=== PATIENT | female | born 1965 | race Hispanic/Latino ===

== ENCOUNTER 2020-05-06 17:22 | Emergency (ER) | payer OTHER ==
--- OUTSIDE RECORDS SUMMARY | 2020-05-06 17:25 | XMS REPORT | Continuity of Care Document ---
:1965 Author Organization [facility] t Address [address] [place] [address] Care Team Providers Name Role Phone Jermain WELSH S Attending Clinician Problems This patient has no known problems. Allergies, Adverse Reactions, Alerts This patient has no known allergies or adverse reactions. Medications This patient has no known medications. Procedures This patient has no known procedures. Encounters Start End Encounter Admission Attending Care Care Encounter Source Date/Time Date/Time Type Type Clinicians Facility Department ID 2018-11-16 2018-11-17 Emergency THERESA Aly [id number] 21:53:19 03:28:00 Yoel León [id number] [place] [id number] [place] [id number] Results This patient has no known results.
[2020-05-06 22:04] LABS: Absolute Lymphocytes (CBC) 2.2 K/uL (0.7-4.9); Basophils % 0.3 % (0-1.3); Hematocrit 39.4 % (36.0-45.0); Lymphocytes % 37.1 % (15.3-44.8); MPV 9.4 fL (7.6-11.3); RBC Red Blood Cell Count 4.73 M/uL (3.86-4.86)
[2020-05-06] MEDS ORDERED: DIPHENHYDRAMINE 50 MG/ML VIAL ONE (22:07)
[2020-05-06] MEDS ORDERED: METOCLOPRAMIDE 10 MG/2mL INJ ONE (22:07)
[2020-05-06] MEDS ORDERED: KETOROLAC 30 MG/ML INJ ONE (22:08)
[2020-05-06 22:20] LABS: ALT/SGPT 25 U/L (12-78); AST/SGOT 16 U/L (15-37); Alkaline Phosphatase 103 U/L (45-117); BUN Blood Urea Nitrogen 9 mg/dL (7-18); Bicarbonate 28 mmol/L (21-32); Bilirubin Total 0.4 mg/dL (0.2-1.0); Glucose Level 88 mg/dL (74-106); Potassium 3.8 mmol/L (3.5-5.1); Sodium Level 144 mmol/L (136-145)
[2020-05-06 22:21] LABS: Protein, Total 7.7 g/dL (6.4-8.2)
--- NOTE | 2020-05-06 23:29 | ER ---
Nurse's Notes [facility] Name: Makayla Tejada Age: 55 yrs Sex: Female : 1965 Arrival Date: 05/06/2020 Time: 17:29 Bed 19 Private MD: Diagnosis: Headache Presentation: 05/06 17:33 Chief complaint: Patient states: STEEL, dizzy, off balanced for 1 day. States her BP just ll1 [employer]ILE[employer]ODU[employer] MOLDER is 150/102. States she hasn't had a migraine STEEL in a long time. + photophobia. Coronavirus screen: Client denies travel out of the [place] in the last 14 days. At this time, the client does not indicate any symptoms associated with coronavirus-19. Ebola Screen: Patient denies travel to an Ebola-affected area in the 21 days before illness onset. Initial Sepsis Screen: Does the patient meet any 2 criteria? No. Patient's initial sepsis screen is negative. Does the patient have a suspected source of infection? Yes: Other: STEEL. Risk Assessment: Do you want to hurt yourself or someone else? Patient reports no desire to harm self or others. Onset of symptoms was May 06, 2020. 17:33 Method Of Arrival: Ambulatory ll1 17:33 Acuity: MELISA 3 ll1 Triage Assessment: 21:03 Headache History: Denies prior headaches. General:. General: Appears uncomfortable, sf Behavior is calm, cooperative, appropriate for age. Pain: Pain currently is 10 out of 10 on a pain scale. Pain began gradually, Also complains of photophobia. 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 - Social history:: Smoking status: Patient denies any tobacco usage or history of. Screenin:22 Abuse screen: Denies threats or abuse. Denies injuries from another. Nutritional sf screening: No deficits noted. Tuberculosis screening: No symptoms or risk factors identified. Never had TB. Possible symptoms: None Risk factors: None. Fall Risk None identified. No fall in past 12 months (0 pts). No secondary diagnosis (0 pts). IV access (20 points). Ambulatory Aid- None/Bed Rest/Nurse Assist (0 pts). Gait- Normal/Bed Rest/Wheelchair (0 pts) Mental Status- Oriented to own ability (0 pts). Total Joshi Fall Scale indicates No Risk (0-24 pts). Assessment: 21:03 General: Appears in no apparent distress. comfortable, Behavior is calm, cooperative, sf appropriate for age. Pain: Complains of pain in headache. Neuro: Level of Consciousness is awake, alert, obeys commands, Oriented to person, place, time, situation, Appropriate for age Speech is normal, Facial symmetry appears normal, Pupils are PERRLA, Reports headache in entire photophobia. Cardiovascular: No deficits noted. Patient's skin is warm and dry. Respiratory: No deficits noted. Airway is patent Respiratory effort is even, unlabored, Respiratory pattern is regular, symmetrical. 22:35 Reassessment: Patient appears in no apparent distress at this time. Patient and/or sf family updated on plan of care and expected duration. Pain level reassessed. Patient is alert, oriented x 3, equal unlabored respirations, skin warm/dry/pink. Patient states feeling better. Vital Signs: 17:33 BP 157 / 102; Pulse 83; Resp 17; Temp 98.8; Pulse Ox 99% ; Weight 79.38 kg; Height 5 ll1 ft. 2 in. (157.48 cm); Pain 10/10; 20:58 BP 152 / 102; Pulse 80; Resp 16; Pulse Ox 100% ; sf 21:00 BP 174 / 107; Pulse 80; Resp 16; Pulse Ox 100% ; sf 21:37 BP 158 / 103; Pulse 97; sf 21:45 BP 171 / 94; Pulse 64; Pulse Ox 100% ; sf 22:00 BP 151 / 108; Pulse 71; Pulse Ox 100% ; sf 22:15 BP 129 / 77; Pulse 58; Resp 16; Pulse Ox 97% ; sf 22:38 BP 122 / 81; Pulse 58; Resp 16; Pulse Ox 97% ; Pain 7/10; sf 22:45 BP 123 / 83; Pulse 59; Pulse Ox 96% ; sf 23:00 BP 107 / 77; Pulse 61; Resp 16; Pulse Ox 95% ; sf 23:15 BP 115 / 82; Pulse 57; Pulse Ox 95% ; sf 23:30 BP 119 / 79; Pulse 64; Pulse Ox 99% ; sf 17:33 Body Mass Index 32.01 (79.38 kg, 157.48 cm) ll1 ED Course: 17:29 Patient arrived in ED. mr 17:35 Triage completed. ll1 17:37 Arm band placed on. ll1 20:46 [facility] pm1 20:46 Rogelio Shields MD is Attending Physician. pm1 20:50 Hussein Forman, LINDA is Primary Nurse. sf 21:06 Patient has correct armband on for positive identification. Bed in low position. Call sf light in reach. Side rails up X 1. Pulse ox on. NIBP on. Door closed. Noise minimized. Lights dimmed. 21:15 CT Head Brain wo Cont Sent. sf 21:24 CT Head Brain wo Cont In Process Unspecified. EDMS 21:40 Initial lab(s) drawn, by nm, sent to lab. Inserted saline lock: 20 gauge in right sf antecubital area, using aseptic technique. Blood collected. 22:26 EKG done, by ED staff, reviewed by Juan Teran NP. sf 22:54 No provider procedures requiring assistance completed. sf 23:51 IV discontinued, intact, bleeding controlled, No redness/swelling at site. Pressure sf dressing applied. Administered Medications: 21:50 Drug: TORadol 30 mg Route: IVP; Site: right antecubital; sf 22:50 Follow up: Response: No adverse reaction; Marked relief of symptoms sf 21:51 Drug: Benadryl 25 mg Route: IVP; Site: right antecubital; sf 22:49 Follow up: Response: No adverse reaction; Marked relief of symptoms sf 21:52 Drug: Reglan 10 mg Route: IVP; Infused Over: 2 mins; Site: right antecubital; sf 22:49 Follow up: Response: No adverse reaction; Marked relief of symptoms sf Outcome: 23:28 Discharge ordered by . pm1 23:51 Discharged to home ambulatory. sf 23:51 Condition: improved 23:51 Condition: stable 23:51 Discharge instructions given to patient, Instructed on discharge instructions, follow up and referral plans. medication usage, Demonstrated understanding of instructions, follow-up care, medications, Prescriptions given X 1. 23:52 Patient left the ED. sf Signatures: Dispatcher MedCatchSquareH[facility] Hospital[facility], Nanci mr Parul, Juan, WINDSHIELD INSTALLER WINDSHIELD INSTALLER pm1 Jesús Gallardo, RN RN ll1 Hussein Forman RN RN sf
--- NOTE | 2020-05-06 23:29 | EDPHYS ---
Physician Documentation [facility] Name: Makayla Tjeada Age: 55 yrs Sex: Female : 1965 Arrival Date: 05/06/2020 Time: 17:29 Bed 19 Private MD: ED Physician Rogelio Shields HPI: 05/06 21:06 This 55 yrs old Female presents to ER via Ambulatory with complaints of pm1 Headache, High Blood Pressure. 21:06 The patient complains of pain to the forehead. The patient describes the headache as pm1 aching, constant. Onset: The symptoms/episode began/occurred yesterday. Associated signs and symptoms: Pertinent positives: elevated blood pressure, Pertinent negatives: vomiting, chest pain, shortness of breath, back pain. Severity of symptoms: in the emergency department the pain is unchanged. Headache History: The patient has had previous headaches and this one is similar to previous episodes. The symptoms are alleviated by Darkened room, quiet, the symptoms are aggravated by lights. The patient has not recently seen a physician. 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 - Social history:: Smoking status: Patient denies any tobacco usage or history of. ROS: 21:06 Constitutional: Negative for fever, chills, and weight loss, Eyes: Negative for injury, pm1 pain, redness, and discharge, ENT: Negative for injury, pain, and discharge, Neck: Negative for injury, pain, and swelling, Cardiovascular: Negative for chest pain, palpitations, and edema, Respiratory: Negative for shortness of breath, cough, wheezing, and pleuritic chest pain, Abdomen/GI: Negative for abdominal pain, nausea, vomiting, diarrhea, and constipation, Back: Negative for injury and pain, MS/Extremity: Negative for injury and deformity, Skin: Negative for injury, rash, and discoloration. 21:06 Neuro: Positive for headache, Negative for numbness, tingling, weakness. Exam: 21:06 Constitutional: This is a well developed, well nourished patient who is awake, alert, pm1 and in no acute distress. Head/Face: Normocephalic, atraumatic. Chest/axilla: Normal chest wall appearance and motion. Nontender with no deformity. No lesions are appreciated. Cardiovascular: Regular rate and rhythm with a normal S1 and S2. No gallops, murmurs, or rubs. Normal PMI, no JVD. No pulse deficits. Respiratory: Lungs have equal breath sounds bilaterally, clear to auscultation and percussion. No rales, rhonchi or wheezes noted. No increased work of breathing, no retractions or nasal flaring. Abdomen/GI: Soft, non-tender, with normal bowel sounds. No distension or tympany. No guarding or rebound. No evidence of tenderness throughout. Skin: Warm, dry with normal turgor. Normal color with no rashes, no lesions, and no evidence of cellulitis. MS/ Extremity: Pulses equal, no cyanosis. Neurovascular intact. Full, normal range of motion. 21:06 Neuro: Exam negative for acute changes, Orientation: is normal, Mentation: is normal, Motor: is normal, moves all fours, Sensation: is normal, no obvious gross deficits. Vital Signs: 17:33 BP 157 / 102; Pulse 83; Resp 17; Temp 98.8; Pulse Ox 99% ; Weight 79.38 kg; Height 5 ll1 ft. 2 in. (157.48 cm); Pain 10/10; 20:58 BP 152 / 102; Pulse 80; Resp 16; Pulse Ox 100% ; sf 21:00 BP 174 / 107; Pulse 80; Resp 16; Pulse Ox 100% ; sf 21:37 BP 158 / 103; Pulse 97; sf 21:45 BP 171 / 94; Pulse 64; Pulse Ox 100% ; sf 22:00 BP 151 / 108; Pulse 71; Pulse Ox 100% ; sf 22:15 BP 129 / 77; Pulse 58; Resp 16; Pulse Ox 97% ; sf 22:38 BP 122 / 81; Pulse 58; Resp 16; Pulse Ox 97% ; Pain 7/10; sf 22:45 BP 123 / 83; Pulse 59; Pulse Ox 96% ; sf 23:00 BP 107 / 77; Pulse 61; Resp 16; Pulse Ox 95% ; sf 23:15 BP 115 / 82; Pulse 57; Pulse Ox 95% ; sf 23:30 BP 119 / 79; Pulse 64; Pulse Ox 99% ; sf 17:33 Body Mass Index 32.01 (79.38 kg, 157.48 cm) ll1 MDM: 20:53 Patient medically screened. pm1 23:27 Data reviewed: vital signs. Data interpreted: Pulse oximetry: on room air is 95 %. pm1 Interpretation: normal. Counseling: I had a detailed discussion with the patient and/or guardian regarding: the historical points, exam findings, and any diagnostic results supporting the discharge/admit diagnosis, lab results, radiology results, the need for outpatient follow up, to return to the emergency department if symptoms worsen or persist or if there are any questions or concerns that arise at home. 23:29 ED course: Blood pressure within normal limits after addressing patient's headache with pm1 medications. No medications given in the ER for hypertension. 05/06 21:04 Order name: CBC with Diff; Complete Time: 23:09 pm1 05/06 21:04 Order name: CMP; Complete Time: 23:09 pm1 05/06 21:04 Order name: CT Head Brain wo Cont pm1 05/06 21:04 Order name: IV Saline Lock; Complete Time: 21:45 pm1 05/06 21:04 Order name: EKG; Complete Time: 21:06 pm1 05/06 21:04 Order name: EKG - Nurse/Tech; Complete Time: 22:35 pm1 Administered Medications: 21:50 Drug: TORadol 30 mg Route: IVP; Site: right antecubital; sf 22:50 Follow up: Response: No adverse reaction; Marked relief of symptoms sf 21:51 Drug: Benadryl 25 mg Route: IVP; Site: right antecubital; sf 22:49 Follow up: Response: No adverse reaction; Marked relief of symptoms sf 21:52 Drug: Reglan 10 mg Route: IVP; Infused Over: 2 mins; Site: right antecubital; sf 22:49 Follow up: Response: No adverse reaction; Marked relief of symptoms sf Disposition: 05/07 06:28 Co-signature as Attending Physician, Rogelio Shields MD I agree with the assessment and tw4 plan of care. Disposition: 05/06/20 23:28 Discharged to Home. Impression: Headache. - Condition is Stable. - Discharge Instructions: General Headache Without Cause, Hypertension, Managing Your Hypertension. - Prescriptions for Fiorinal 50- 325-40 mg Oral Capsule - take 1 capsule by ORAL route every 4 hours As needed - not to exceed 6 capsules per day; 20 capsule. - Medication Reconciliation Form, Thank You Letter, Antibiotic Education, Prescription Opioid Use form. - Follow up: Emergency Department; When: As needed; Reason: Worsening of condition. Follow up: Private Physician; When: 2 - 3 days; Reason: Recheck today's complaints, Continuance of care, Re-evaluation by your physician. - Problem is new. - Symptoms have improved. Signatures: Dispatcher [employer] EDMS Juan Teran, AUTO MECHANIC SUPERVISOR AUTO MECHANIC SUPERVISOR pm1 Rogelio Shields MD MD tw4 Jesús Gallardo RN RN ll1 Hussein Forman RN RN sf Corrections: (The following items were deleted from the chart) 05/06 23:52 23:28 05/06/2020 23:28 Discharged to Home. Impression: Headache. Condition is Stable. sf Forms are Medication Reconciliation Form, Thank You Letter, Antibiotic Education, Prescription Opioid Use. Follow up: Emergency Department; When: As needed; Reason: Worsening of condition. Follow up: Private Physician; When: 2 - 3 days; Reason: Recheck today's complaints, Continuance of care, Re-evaluation by your physician. Problem is new. Symptoms have improved. pm1
[2020-05-07 02:06] VITALS: TEMP 98.8
[2020-05-07 02:19] VITALS: BP 119/79; O2SAT 99
--- NOTE | 2020-05-07 13:52 | RAD REPORT ---
EXAM DESCRIPTION: CT - Head Brain Wo Cont - 05/07/2020 6:38 am CLINICAL HISTORY: Headache. Dizziness. Photophobia. COMPARISON: None. TECHNIQUE: CT scan of the brain was performed without IV contrast. This exam was performed accordi ng to our departmental dose-optimization program, which includes automated exposure control, adjustme nt of the mA and/or kV according to patient size and/or use of iterative reconstruction technique. FINDINGS: The ventricles, cisterns, and sulci are age-appropriate. No evidence of acute infarction, intracranial hemorrhage, extra-axial fluid collection, or midline shift. No air-fluid levels are seen in the paranasal sinuses to suggest acute sinusitis. No depressed skull fracture. IMPRESSION: No acute intracranial findings. Electronically signed by: Robert Ross MD 05/06/2020 9:46 PM CAFETERIA MONITOR Due to temporary technical issues with the PACS/Fluency reporting system, reports are being signed by the in house radiologists without review as a courtesy to insure prompt reporting. The interpreting radiologist is fully responsible for the content of the report.
--- NOTE | 2020-05-07 23:59 | EKG ---
Test Date: 2020-05-06 Test Time: 22:26:13 Salvage Inspector: SYLVIA MEASUREMENT RESULTS: Intervals: Rate: 59 CO: 102 QRSD: 84 QT: 392 QTc: 388 [place]: P: 27 CO: 102 QRS: 7 T: 20 INTERPRETIVE STATEMENTS: Sinus bradycardia with short CO T wave abnormality, consider anterior ischemia Abnormal ECG Compared to ECG 11/12/2000 13:51:00 T-wave abnormality now present Possible ischemia now present Electronically Signed On 05-07-20 23:57:51 TAILINGS MAN by Ernesto Zavala
== END 2020-05-06 23:52 | disposition home or self-care (01) ==
LOC: ER 17:22
DX: R51.9 Headache, unspecified (principal); R03.0 Elevated blood-pressure reading, without diagnosis of hypertension
CPT/HCPCS: 93005; 85025; 36415; 80053; 70450; J2765; J1200; 96374; 96375; 99284

== ENCOUNTER 2020-05-08 20:46 | Emergency (ER) | payer OTHER ==
--- OUTSIDE RECORDS SUMMARY | 2020-05-08 20:48 | XMS REPORT | Continuity of Care Document ---
:1965 Author Organization [facility] t Address [address] [place] [address] Care Team Providers Name Role Phone Jermain [...] Department ID 2018-11-16 2018-11-17 Emergency THERESA Aly [id number] 21:53:19 03:28:00 Yoel León [id number] [place] [id number] [place] [phone] [id number] Results This patient has no known results.
--- NOTE | 2020-05-08 21:20 | RAD REPORT ---
EXAM DESCRIPTION: CT - Ct Stroke Brain Wo Cont - 05/08/2020 9:02 pm CLINICAL HISTORY: Numbness;Weakness Headache, drowsiness, CVA symptomology COMPARISON: Head Brain Wo Cont dated 05/06/2020 TECHNIQUE: All CT scans are performed using dose optimization technique as appropriate and may inclu de automated exposure control or mA/KV adjustment according to patient size. FINDINGS: No intracranial hemorrhage, hydrocephalus or extra-axial fluid collection.No areas of brai n edema or evidence of midline shift. The paranasal sinuses and mastoids are clear. The calvarium is intact. IMPRESSION: No acute intracranial abnormality. The findings were discussed with Dr. Galan in the ER on 05/08/2020 at 9:02 p.m. by telephone.
--- NOTE | 2020-05-08 21:20 | RAD REPORT ---
EXAM DESCRIPTION: RAD - Chest Single View - 05/08/2020 9:10 pm CLINICAL HISTORY: cva Chest pain. COMPARISON: CHEST PA AND LAT 2 VIEW dated 08/21/2009 FINDINGS: Portable technique limits examination quality. The lungs are grossly clear. The heart is normal in size. No displaced fractures. IMPRESSION: No acute intrathoracic process suspected.
[2020-05-08 21:25] LABS: Absolute Lymphocytes (CBC) 2.2 K/uL (0.7-4.9); Basophils % 0.5 % (0-1.3); Hematocrit 40.4 % (36.0-45.0); Lymphocytes % 33.3 % (15.3-44.8); MPV 9.5 fL (7.6-11.3); RBC Red Blood Cell Count 4.85 M/uL (3.86-4.86)
[2020-05-08] MEDS ORDERED: NA CHLORIDE 0.9% 1,000 ML ONE (21:36)
[2020-05-08] MEDS ORDERED: FOLIC ACID 5 MG/ML VIAL ONE (21:36)
[2020-05-08 21:41] LABS: Protime INR 0.97
[2020-05-08 21:45] LABS: ALT/SGPT 28 U/L (12-78); AST/SGOT 20 U/L (15-37); Albumin 4.2 g/dL (3.4-5.0); Alkaline Phosphatase 104 U/L (45-117); BUN Blood Urea Nitrogen 12 mg/dL (7-18); Bicarbonate 24 mmol/L (21-32); Bilirubin Direct 0.1 mg/dL (0-0.2); Bilirubin Total 0.6 mg/dL (0.2-1.0); Glucose Level 91 mg/dL (74-106); Magnesium 2.4 mg/dL (1.8-2.4); Potassium 3.5 mmol/L (3.5-5.1); Protein, Total 8.2 g/dL (6.4-8.2); Sodium Level 141 mmol/L (136-145); Troponin (Emerg Dept Use Only) < 0.02 ng/mL (0.0-0.045)
--- NOTE | 2020-05-08 21:53 | EDPHYS ---
Physician Documentation [facility] Name: Makayla Tejada Age: 55 yrs Sex: Female : 1965 Arrival Date: 05/08/2020 Time: 20:48 Bed 8 Private MD: Maria Guadalupe Gottlieb C ED Physician Haroldo Galan HPI: 05/08 21:36 This 55 yrs old Female presents to ER via Ambulatory with complaints of michaela Numbness, High Blood Pressure, General Weakness. 21:36 The patient's problem is reported as weakness, in the left upper extremity, in the left michaela lower extremity, in the left side of face. Onset: The symptoms/episode began/occurred 1.25 hour(s) ago. Duration: The episode is continuous. Context: symptoms became apparent at 20:15. occurred at work. The symptoms are alleviated by nothing. The symptoms are aggravated by nothing. Associated signs and symptoms: The patient has no apparent associated signs or symptoms. Severity of symptoms: At their worst the symptoms were mild moderate in the emergency department the symptoms have improved mildly. Patient's baseline: Neuro: alert and fully oriented. The patient has not experienced similar symptoms in the past. 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 - Social history:: Smoking status: Patient denies any tobacco usage or history of. ROS: 21:36 Constitutional: Negative for fever, chills, and weight loss, Eyes: Negative for injury, michaela pain, redness, and discharge, ENT: Negative for injury, pain, and discharge, Neck: Negative for injury, pain, and swelling, Cardiovascular: Negative for chest pain, palpitations, and edema, Respiratory: Negative for shortness of breath, cough, wheezing, and pleuritic chest pain, Abdomen/GI: Negative for abdominal pain, nausea, vomiting, diarrhea, and constipation, Back: Negative for injury and pain, : Negative for injury, bleeding, discharge, and swelling, MS/Extremity: Negative for injury and deformity, Skin: Negative for injury, rash, and discoloration, Psych: Negative for depression, anxiety, suicide ideation, homicidal ideation, and hallucinations, Allergy/Immunology: Negative for hives, rash, and allergies, Endocrine: Negative for neck swelling, polydipsia, polyuria, polyphagia, and marked weight changes. 21:36 Neuro: Positive for headache, weakness. Exam: 21:36 Radiologist reports: nad, negative michaela 21:36 Constitutional: This is a well developed, well nourished patient who is awake, alert, and in no acute distress. Eyes: Pupils equal round and reactive to light, extra-ocular motions intact. Lids and lashes normal. Conjunctiva and sclera are non-icteric and not injected. Cornea within normal limits. Periorbital areas with no swelling, redness, or edema. ENT: Nares patent. No nasal discharge, no septal abnormalities noted. Tympanic membranes are normal and external auditory canals are clear. Oropharynx with no redness, swelling, or masses, exudates, or evidence of obstruction, uvula midline. Mucous membranes moist. Neck: Trachea midline, no thyromegaly or masses palpated, and no cervical lymphadenopathy. Supple, full range of motion without nuchal rigidity, or vertebral point tenderness. No Meningismus. Chest/axilla: Normal chest wall appearance and motion. Nontender with no deformity. No lesions are appreciated. Cardiovascular: Regular rate and rhythm with a normal S1 and S2. No gallops, murmurs, or rubs. Normal PMI, no JVD. No pulse deficits. Respiratory: Lungs have equal breath sounds bilaterally, clear to auscultation and percussion. No rales, rhonchi or wheezes noted. No increased work of breathing, no retractions or nasal flaring. Abdomen/GI: Soft, non-tender, with normal bowel sounds. No distension or tympany. No guarding or rebound. No evidence of tenderness throughout. Back: No spinal tenderness. No costovertebral tenderness. Full range of motion. Skin: Warm, dry with normal turgor. Normal color with no rashes, no lesions, and no evidence of cellulitis. MS/ Extremity: Pulses equal, no cyanosis. Neurovascular intact. Full, normal range of motion. Psych: Awake, alert, with orientation to person, place and time. Behavior, mood, and affect are within normal limits. 21:36 Head/face: Noted is left facial weakness, forehead spared. 21:53 ECG was reviewed by the Attending Physician. michaela Vital Signs: 21:10 BP 177 / 105; Pulse 66; Resp 16 S; Temp 98.1(O); Pulse Ox 98% on R/A; Weight 79.38 kg ca1 (R); Height 5 ft. 2 in. (157.48 cm) (R); 22:35 BP 163 / 100; Pulse 68; Resp 19; Pulse Ox 99% ; rr5 23:05 BP 159 / 98; Pulse 63; Resp 17; Pulse Ox 98% ; rr5 23:56 BP 158 / 104; Pulse 68; Resp 18; Pulse Ox 99% on R/A; ea 21:10 Body Mass Index 32.01 (79.38 kg, 157.48 cm) ca1 NIH Stroke Scale Scores: 21:35 NIHSS Score: 5 rr5 21:35 NIHSS Score: 4 rr5 21:54 NIHSS Score: 2 michaela 23:00 NIHSS Score: 4 rr5 MDM: 21:12 Patient medically screened. michaela 21:41 Differential diagnosis: CVA, TIA. Data reviewed: vital signs, nurses notes, lab test [facility] result(s), EKG, radiologic studies, CT scan. Data interpreted: athletic monitor: rate is 66 beats/min, rhythm is regular, Pulse oximetry: on room air is 98 %. Test interpretation: by ED physician or midlevel provider: ECG, plain radiologic studies. Counseling: I had a detailed discussion with the patient and/or guardian regarding: the historical points, exam findings, and any diagnostic results supporting the discharge/admit diagnosis, lab results, radiology results. 05/08 21:05 Order name: Hepatic Function tt3 05/08 21:05 Order name: Troponin (emerg Dept Use Only) tt3 05/08 21:05 Order name: Magnesium tt3 05/08 21:05 Order name: Basic Metabolic Panel tt3 05/08 21:05 Order name: CBC with Diff tt3 05/08 21:05 Order name: Protime (+inr) tt3 05/08 20:56 Order name: CT Stroke Brain w/o Contrast ca1 05/08 21:05 Order name: Ptt, Activated tt3 05/08 21:05 Order name: Stroke CXR 1 View tt3 05/08 21:19 Order name: COVID-19 : Document "Date of Symptom Onset" if Symptomatic. sg 05/08 21:25 Order name: Glucose, Ancillary Testing EDMD 05/08 21:47 Order name: CT Head Angio michaela 05/08 22:25 Order name: SARS-COV-2 RT PCR EDMD 05/08 21:05 Order name: EKG; Complete Time: 21:06 tt3 05/08 21:05 Order name: Accucheck; Complete Time: 21:17 tt3 05/08 21:05 Order name: Cardiac monitoring; Complete Time: 21:25 tt3 05/08 21:05 Order name: EKG - Nurse/Tech; Complete Time: 21:17 tt3 05/08 21:05 Order name: IV Saline Lock; Complete Time: 21:16 tt3 05/08 21:05 Order name: Labs collected and sent; Complete Time: 21:16 tt3 05/08 21:05 Order name: NPO; Complete Time: 21:25 tt3 05/08 21:05 Order name: O2 Per Protocol; Complete Time: 21:17 tt3 05/08 21:05 Order name: O2 Sat Monitoring; Complete Time: 21:17 tt3 05/08 21:49 Order name: Neck Angio EDMD 05/08 21:05 Order name: Stroke Swallow Screen; Complete Time: 00:13 tt3 EC:53 Rate is 64 beats/min. Rhythm is regular. QRS [place] is Normal. NE interval is normal. QRS michaela interval is normal. QT interval is normal. No Q waves. T waves are Normal. No ST changes noted. Clinical impression: Normal ECG and No evidence of ischemia. Interpreted by me. Reviewed by me. Administered Medications: 21:40 Drug: Trandate 10 mg Route: IVP; Site: right antecubital; rr5 22:40 Follow up: Response: No adverse reaction; Blood pressure is lowered rr5 21:50 Drug: ACTIvase {Co-Signature: louisa (Najma Blake RN).} Route: IV Thrombolytics; Rate: rr5 calculated rate; Infused Over: 60 mins; 22:50 Follow up: Response: No adverse reaction rr5 05/09 03:27 Not Given (Hemodynamic Parameters): Trandate 10 mg IVP once; Over 2 minutes rr5 Point of Care Testing: Blood Glucose: 05/08 21:08 Blood Glucose: 100 mg/dL; sg Ranges: Critical Glucose Levels:Adult <50 mg/dl or >400 mg/dl <40 mg/dl or >180 mg/dl Disposition: 05/08/20 21:52 Transfer ordered to [facility]. Diagnosis are Cerebral infarction, Essential (primary) hypertension. - Reason for transfer: Higher level of care. - Accepting physician is jannette padilla. - Condition is Fair. - Problem is new. - Symptoms have improved. NIH Stroke Scale - NIH Stroke Score Date: 05/08/2020 Time: 21:35 Total Score = 5 1a. Level of Consciousness (LOC) - 0(Alert) 1b. Level of Consciousness (LOC) (Year \\T\\ Age) - 0(Both) 1c. LOC Commands (Open \\T\\ Closes Eyes/Buggy Ladle Tender) - 0(Both) 2. Best Gaze (Lateral Gaze Paresis) - 0(Normal) 3. Visual Field Loss - 0(No visual loss) 4. Facial Palsy - 1(Minor Paralysis) 5a. Left Arm: Motor (10-second hold) - 1(Drift) 5b. Right Arm: Motor (10-second hold) - 0(No drift) 6a. Left Leg: Motor (5-second hold - always test supine) - 1(Drift) 6b. Right Leg: Motor (5-second hold - always test supine) - 0(No drift) 7. Limb Ataxia (finger/nose \\T\\ heel/frankel - test with eyes open) - 1(Present in one limb) 8. Sensory Loss (pinprick arms/legs/face) - 1(Mild to moderate loss) 9. Best Language: Aphasia (description/naming/reading) - 0(No aphasia) 10. Dysarthria (speech clarity - read or repeat words) - 0(Normal) 11. Extinction and Inattention (visual/tactile/auditory/spatial/personal) - 0(No abnormality) Initials: rr5 NIH Stroke Scale - NIH Stroke Score Date: 05/08/2020 Time: 21:35 Total Score = 4 1a. Level of Consciousness (LOC) - 0(Alert) 1b. Level of Consciousness (LOC) (Year \\T\\ Age) - 0(Both) 1c. LOC Commands (Open \\T\\ Closes Eyes/Buggy Ladle Tender) - 0(Both) 2. Best Gaze (Lateral Gaze Paresis) - 0(Normal) 3. Visual Field Loss - 0(No visual loss) 4. Facial Palsy - 1(Minor Paralysis) 5a. Left Arm: Motor (10-second hold) - 1(Drift) 5b. Right Arm: Motor (10-second hold) - 0(No drift) 6a. Left Leg: Motor (5-second hold - always test supine) - 1(Drift) 6b. Right Leg: Motor (5-second hold - always test supine) - 0(No drift) 7. Limb Ataxia (finger/nose \\T\\ heel/frankel - test with eyes open) - 0(Absent) 8. Sensory Loss (pinprick arms/legs/face) - 1(Mild to moderate loss) 9. Best Language: Aphasia (description/naming/reading) - 0(No aphasia) 10. Dysarthria (speech clarity - read or repeat words) - 0(Normal) 11. Extinction and Inattention (visual/tactile/auditory/spatial/personal) - 0(No abnormality) Initials: rr5 NIH Stroke Scale - NIH Stroke Score Date: 05/08/2020 Time: 21:54 Total Score = 2 1a. Level of Consciousness (LOC) - 0(Alert) 1b. Level of Consciousness (LOC) (Year \\T\\ Age) - 0(Both) 1c. LOC Commands (Open \\T\\ Closes Eyes/Buggy Ladle Tender) - 0(Both) 2. Best Gaze (Lateral Gaze Paresis) - 0(Normal) 3. Visual Field Loss - 0(No visual loss) 4. Facial Palsy - 1(Minor Paralysis) 5a. Left Arm: Motor (10-second hold) - 0(No drift) 5b. Right Arm: Motor (10-second hold) - 0(No drift) 6a. Left Leg: Motor (5-second hold - always test supine) - 0(No drift) 6b. Right Leg: Motor (5-second hold - always test supine) - 0(No drift) 7. Limb Ataxia (finger/nose \\T\\ heel/frankel - test with eyes open) - 0(Absent) 8. Sensory Loss (pinprick arms/legs/face) - 1(Mild to moderate loss) 9. Best Language: Aphasia (description/naming/reading) - 0(No aphasia) 10. Dysarthria (speech clarity - read or repeat words) - 0(Normal) 11. Extinction and Inattention (visual/tactile/auditory/spatial/personal) - 0(No abnormality) Initials: michaela NIH Stroke Scale - NIH Stroke Score Date: 05/08/2020 Time: 23:00 Total Score = 4 1a. Level of Consciousness (LOC) - 0(Alert) 1b. Level of Consciousness (LOC) (Year \\T\\ Age) - 0(Both) 1c. LOC Commands (Open \\T\\ Closes Eyes/Buggy Ladle Tender) - 0(Both) 2. Best Gaze (Lateral Gaze Paresis) - 0(Normal) 3. Visual Field Loss - 0(No visual loss) 4. Facial Palsy - 1(Minor Paralysis) 5a. Left Arm: Motor (10-second hold) - 1(Drift) 5b. Right Arm: Motor (10-second hold) - 0(No drift) 6a. Left Leg: Motor (5-second hold - always test supine) - 1(Drift) 6b. Right Leg: Motor (5-second hold - always test supine) - 0(No drift) 7. Limb Ataxia (finger/nose \\T\\ heel/frankel - test with eyes open) - 0(Absent) 8. Sensory Loss (pinprick arms/legs/face) - 1(Mild to moderate loss) 9. Best Language: Aphasia (description/naming/reading) - 0(No aphasia) 10. Dysarthria (speech clarity - read or repeat words) - 0(Normal) 11. Extinction and Inattention (visual/tactile/auditory/spatial/personal) - 0(No abnormality) Initials: rr5 Signatures: Dispatcher [employer] Haroldo Pedro MD MD cha Roque, Raymond RN LINDA rr5 Jayleen Luz RN RN ca1 Devin Bear tt3 Najma Blake RN ea Corrections: (The following items were deleted from the chart) 21:31 21:20 CORONAVIRUS ordered. [facility] 05/09 00:13 05/08 21:52 05/08/2020 21:52 Transfer ordered to [place] [id number] [facility]. Diagnosis is Cerebral infarction; Essential (primary) hypertension. Reason for transfer: Higher level of care. Accepting physician is to [facility]. Condition is Fair. Problem is new. Symptoms have improved. [facility]
--- NOTE | 2020-05-08 21:53 | ER ---
Nurse's Notes [facility] Name: Makayla Tejada Age: 55 yrs Sex: Female : 1965 Arrival Date: 05/08/2020 Time: 20:48 Bed 8 Private MD: Maria Guadalupe Gottlieb C Diagnosis: Cerebral infarction;Essential (primary) hypertension Presentation: 05/08 20:56 Coronavirus screen: Client denies travel out of the [place] in the last 14 days. At this ca1 time, the client does not indicate any symptoms associated with coronavirus-19. Ebola Screen: Patient negative for fever greater than or equal to 101.5 degrees Fahrenheit, and additional compatible Ebola Virus Disease symptoms Patient denies exposure to infectious person. Patient denies travel to an Ebola-affected area in the 21 days before illness onset. No symptoms or risks identified at this time. Risk Assessment: Do you want to hurt yourself or someone else? Patient reports no desire to harm self or others. Onset of symptoms was May 08, 2020 at 20:30. 20:56 Acuity: MELISA 2 ca1 20:56 Method Of Arrival: Ambulatory ca1 20:59 Chief complaint: Friend and/or Co-Worker states: 30 minutes CASING TIER, noticed weakness on L ca1 side of the body. Dragging L foot while walking. Numbness on L side of face. Negative slurring, VAN negative. A\T\Ox3. 21:00 An acute neurological deficit is present. The patient has been moved to a treatment 5 area. 21:01 Chief complaint: Patient states: High BP at 180/130 30 minutes CASING TIER. ca1 21:10 Initial Sepsis Screen: Does the patient meet any 2 criteria? No. Patient's initial ca1 sepsis screen is negative. Does the patient have a suspected source of infection? No. Patient's initial sepsis screen is negative. Triage Assessment: 21:10 The onset of the patients symptoms was May 08, 2020 at 20:30. ca1 ANIMAL SURGEON: 21:30 unrecalled rr5 Stroke Activation: Symptom onset < 3 hours Physician: Stroke Attending; Name: ; Notified At: ; Arrived At: Physician: Chief Stroke Resident; Name: ; Notified At: ; Arrived At: Physician: Stroke Resident; Name: ; Notified At: ; Arrived At: Physician: ED Attending; Name: ; Notified At: ; Arrived At: Physician: ED Resident; Name: ; Notified At: ; Arrived At: Historical: - Allergies: 21: No Known Allergies; ca1 - PMHx: 21: B shoulder repair-tendon; Migraines; ca1 - PSHx: 21: Hysterectomy; Cholecystectomy; ca1 - Immunization history:: Pneumococcal vaccine is up to date. - Social history:: Smoking status: Patient denies any tobacco usage or history of. Screenin:30 Fall Risk Secondary diagnosis (15 points) CVA, IV access (20 points). Total Joshi Fall rr5 Scale indicates Low Risk Score (25-44 pts). Fall prevention measures have been instituted. Side Rails Up X 2 Frequent Obs/Assesments occuring Family Present and informed to notify staff if they need to leave bedside As available Patient and Family Educated on Fall Prevention Program and strategies. 21:30 Abuse screen: Denies threats or abuse. Denies injuries from another. Nutritional rr5 screening: No deficits noted. Tuberculosis screening: No symptoms or risk factors identified. 21:30 VAN Screening: Arm Drift: Minor drift. Visual Disturbance: No visual disturbance noted. rr5 Aphasia: No aphasia noted. Neglect: No neglect noted. 21:40 Patient has been NPO before screening. The patient is alert, able to follow commands. rr5 The patient exhibits slurred or garbled speech. Provider notified of indication for Speech Therapy consult. The patient is not exhibiting difficulty speaking. The patient does not exhibit difficulty understanding words. The patient is able to swallow own secretions with no drooling or need for suction. Patient tolerated one teaspoon of water. No drooling, immediate coughing, gurgling, or clearing of the throat was noted. The patient tolerated 90mL of water. No drooling, immediate coughing, gurgling, or clearing of the throat was noted. The patient failed the bedside swallow screening. The patient will be kept NPO until cleared by Speech Therapy or Physician. Assessment: 21:30 Reassessment: seen and examined by ED provider at bedside. rr5 21:35 VAN Scoring: Arm Drift: Minor drift Visual Disturbance: No visual disturbance noted. rr5 Aphasia: No aphasia noted. Neglect: No neglect noted. 21:35 General: Appears in no apparent distress. Behavior is calm, cooperative, appropriate rr5 for age. Pain: Denies pain. Neuro: Level of Consciousness is awake, alert, obeys commands, Oriented to person, place, time, situation, Facial droop on left, Reports weakness in left leg. Cardiovascular: Capillary refill < 3 seconds Patient's skin is warm and dry. Respiratory: Airway is patent Respiratory effort is even, unlabored, Respiratory pattern is regular, symmetrical. GI: Abdomen is round. : No signs and/or symptoms were reported regarding the genitourinary system. EENT: No signs and/or symptoms were reported regarding the EENT system. Derm: Skin is intact, is healthy with good turgor, Skin temperature is warm. Musculoskeletal: Capillary refill < 3 seconds, Reports weakness in left arm and left leg. 21:50 T-PA (Activase) Screening: Indications: Definite evidence of stroke, ischemic, embolic, rr5 or hypertensive: Yes. Treatment will start within 4.5 hours onset of symptoms: Yes. No evidence of intracranial hemorrhage or CT of head and no evidence of peripheral hemorrhage or recent CVA: Yes. Consent for thrombolytic therapy: Yes. 21:50 Reassessment: Patient appears in no apparent distress at this time. Patient is alert, rr5 oriented x 3, equal unlabored respirations, skin warm/dry/pink. TPA started. 22:00 Patient has been NPO before screening. The patient is alert, and able to follow rr5 commands. The patient exhibits slurred or garbled speech. Provider notified of the indication for Speech Therapy consult. The patient is not exhibiting difficulty speaking. The patient does not exhibit difficulty understanding words. The patient is able to swallow own secretions with no drooling or need for suction. Patient tolerated one teaspoon of water. No drooling, immediate coughing, gurgling, or clearing of the throat was noted. The patient tolerated 90mL of water. No drooling, immediate coughing, gurgling, or clearing of the throat was noted. The patient failed the bedside swallow screening. The patient will be kept NPO until cleared by Speech Therapy or Physician. Provider notified of bedside swallow screening results: Haroldo Galan MD. 22:50 Reassessment: Patient appears in no apparent distress at this time. Patient is alert, rr5 oriented x 3, equal unlabored respirations, skin warm/dry/pink. TPA consumed and terminated no bleeding no complaints made, family member at bedside. 23:17 Reassessment: Patient appears in no apparent distress at this time. Patient is alert, rr5 oriented x 3, equal unlabored respirations, skin warm/dry/pink. using her phone no complaints made. 23:22 Reassessment: Report given to Juli MCKEON at [facility]. ea 23:30 Reassessment: Patient appears in no apparent distress at this time. Patient is alert, rr5 oriented x 3, equal unlabored respirations, skin warm/dry/pink. awaiting for EMS transport. 05/09 00:09 Reassessment: Patient is alert, oriented x 3, equal unlabored respirations, skin ea warm/dry/pink. Report given to [facility]. Pt left via stretcher per EMS. Pt tolerating well. Vital Signs: 05/08 21:10 BP 177 / 105; Pulse 66; Resp 16 S; Temp 98.1(O); Pulse Ox 98% on R/A; Weight 79.38 kg ca1 (R); Height 5 ft. 2 in. (157.48 cm) (R); 22:35 BP 163 / 100; Pulse 68; Resp 19; Pulse Ox 99% ; rr5 23:05 BP 159 / 98; Pulse 63; Resp 17; Pulse Ox 98% ; rr5 23:56 BP 158 / 104; Pulse 68; Resp 18; Pulse Ox 99% on R/A; ea 21:10 Body Mass Index 32.01 (79.38 kg, 157.48 cm) ca1 NIH Stroke Scale Scores: 21:35 NIHSS Score: 5 rr5 21:35 NIHSS Score: 4 rr5 21:54 NIHSS Score: 2 michaela 23:00 NIHSS Score: 4 rr5 ED Course: 20:48 Patient arrived in ED. am2 20:49 Maria Guadalupe Gottlieb FNP is Private Physician. am2 20:57 Triage completed. ca1 20:57 Arm band placed on right wrist. ca1 21:02 CT Stroke Brain w/o Contrast In Process Unspecified. EDMS 21:08 Initial lab(s) drawn, by me, sent to lab. Inserted saline lock: 20 gauge in right sg antecubital area, using aseptic technique. Blood collected. 21:10 Stroke CXR 1 View In Process Unspecified. EDMS 21:12 Haroldo Galna MD is Attending Physician. michaela 21:15 Patient has correct armband on for positive identification. Placed in gown. Bed in low rr5 position. Call light in reach. Side rails up X2. classroom monitor on. Pulse ox on. NIBP on. 21:41 Michael Hobbs, RN is Primary Nurse. rr5 21:50 Inserted saline lock: 18 gauge in left hand, using aseptic technique. rr5 22:20 CT Head Angio In Process Unspecified. EDMS 22:21 Neck Angio In Process Unspecified. EDMS 05/09 00:10 No provider procedures requiring assistance completed. Patient transferred, IV remains rr5 in place. intact, No redness/swelling at site. Administered Medications: 05/08 21:40 Drug: Trandate 10 mg Route: IVP; Site: right antecubital; rr5 22:40 Follow up: Response: No adverse reaction; Blood pressure is lowered rr5 21:50 Drug: ACTIvase {Co-Signature: louisa (Najma Blake RN).} Route: IV Thrombolytics; Rate: rr5 calculated rate; Infused Over: 60 mins; 22:50 Follow up: Response: No adverse reaction rr5 05/09 03:27 Not Given (Hemodynamic Parameters): Trandate 10 mg IVP once; Over 2 minutes rr5 Point of Care Testing: Blood Glucose: 05/08 21:08 Blood Glucose: 100 mg/dL; sg Ranges: Outcome: 21:52 ER care complete, transfer ordered by . [facility] 05/09 00:09 Transferred by ground EMS to [facility], Transfer form completed. ea Condition: stable Instructed on the need for transfer, Demonstrated understanding of instructions. 00:13 Patient left the ED. rr5 NIH Stroke Scale - NIH Stroke Score Date: 05/08/2020 Time: 21:35 Total Score = 5 1a. Level of Consciousness (LOC) - 0(Alert) 1b. Level of Consciousness (LOC) (Year \T\ Age) - 0(Both) 1c. LOC Commands (Open \T\ Closes Eyes/Accounting Coordinator) - 0(Both) 2. Best Gaze (Lateral Gaze Paresis) - 0(Normal) 3. Visual Field Loss - 0(No visual loss) 4. Facial Palsy - 1(Minor Paralysis) 5a. Left Arm: Motor (10-second hold) - 1(Drift) 5b. Right Arm: Motor (10-second hold) - 0(No drift) 6a. Left Leg: Motor (5-second hold - always test supine) - 1(Drift) 6b. Right Leg: Motor (5-second hold - always test supine) - 0(No drift) 7. Limb Ataxia (finger/nose \T\ heel/frankel - test with eyes open) - 1(Present in one limb) 8. Sensory Loss (pinprick arms/legs/face) - 1(Mild to moderate loss) 9. Best Language: Aphasia (description/naming/reading) - 0(No aphasia) 10. Dysarthria (speech clarity - read or repeat words) - 0(Normal) 11. Extinction and Inattention (visual/tactile/auditory/spatial/personal) - 0(No abnormality) Initials: rr5 NIH Stroke Scale - NIH Stroke Score Date: 05/08/2020 Time: 21:35 Total Score = 4 1a. Level of Consciousness (LOC) - 0(Alert) 1b. Level of Consciousness (LOC) (Year \T\ Age) - 0(Both) 1c. LOC Commands (Open \T\ Closes Eyes/Accounting Coordinator) - 0(Both) 2. Best Gaze (Lateral Gaze Paresis) - 0(Normal) 3. Visual Field Loss - 0(No visual loss) 4. Facial Palsy - 1(Minor Paralysis) 5a. Left Arm: Motor (10-second hold) - 1(Drift) 5b. Right Arm: Motor (10-second hold) - 0(No drift) 6a. Left Leg: Motor (5-second hold - always test supine) - 1(Drift) 6b. Right Leg: Motor (5-second hold - always test supine) - 0(No drift) 7. Limb Ataxia (finger/nose \T\ heel/frankel - test with eyes open) - 0(Absent) 8. Sensory Loss (pinprick arms/legs/face) - 1(Mild to moderate loss) 9. Best Language: Aphasia (description/naming/reading) - 0(No aphasia) 10. Dysarthria (speech clarity - read or repeat words) - 0(Normal) 11. Extinction and Inattention (visual/tactile/auditory/spatial/personal) - 0(No abnormality) Initials: rr5 NIH Stroke Scale - NIH Stroke Score Date: 05/08/2020 Time: 21:54 Total Score = 2 1a. Level of Consciousness (LOC) - 0(Alert) 1b. Level of Consciousness (LOC) (Year \T\ Age) - 0(Both) 1c. LOC Commands (Open \T\ Closes Eyes/Accounting Coordinator) - 0(Both) 2. Best Gaze (Lateral Gaze Paresis) - 0(Normal) 3. Visual Field Loss - 0(No visual loss) 4. Facial Palsy - 1(Minor Paralysis) 5a. Left Arm: Motor (10-second hold) - 0(No drift) 5b. Right Arm: Motor (10-second hold) - 0(No drift) 6a. Left Leg: Motor (5-second hold - always test supine) - 0(No drift) 6b. Right Leg: Motor (5-second hold - always test supine) - 0(No drift) 7. Limb Ataxia (finger/nose \T\ heel/frankel - test with eyes open) - 0(Absent) 8. Sensory Loss (pinprick arms/legs/face) - 1(Mild to moderate loss) 9. Best Language: Aphasia (description/naming/reading) - 0(No aphasia) 10. Dysarthria (speech clarity - read or repeat words) - 0(Normal) 11. Extinction and Inattention (visual/tactile/auditory/spatial/personal) - 0(No abnormality) Initials: [facility] NIH Stroke Scale - NIH Stroke Score Date: 05/08/2020 Time: 23:00 Total Score = 4 1a. Level of Consciousness (LOC) - 0(Alert) 1b. Level of Consciousness (LOC) (Year \T\ Age) - 0(Both) 1c. LOC Commands (Open \T\ Closes Eyes/Accounting Coordinator) - 0(Both) 2. Best Gaze (Lateral Gaze Paresis) - 0(Normal) 3. Visual Field Loss - 0(No visual loss) 4. Facial Palsy - 1(Minor Paralysis) 5a. Left Arm: Motor (10-second hold) - 1(Drift) 5b. Right Arm: Motor (10-second hold) - 0(No drift) 6a. Left Leg: Motor (5-second hold - always test supine) - 1(Drift) 6b. Right Leg: Motor (5-second hold - always test supine) - 0(No drift) 7. Limb Ataxia (finger/nose \T\ heel/frankel - test with eyes open) - 0(Absent) 8. Sensory Loss (pinprick arms/legs/face) - 1(Mild to moderate loss) 9. Best Language: Aphasia (description/naming/reading) - 0(No aphasia) 10. Dysarthria (speech clarity - read or repeat words) - 0(Normal) 11. Extinction and Inattention (visual/tactile/auditory/spatial/personal) - 0(No abnormality) Initials: rr5 Signatures: Dispatcher [employer] Hussein Curiel RN RN sg Anderson, Corey, MD MD cha Moreno, Amanda am2 Antunez, Elena, RN RN ea Roque, Raymond, RN RN rr5 Jayleen Luz RN RN ca1 Elena Antunez RN ea
[2020-05-08] MEDS ORDERED: LABETALOL 20 MG/4ML SYRINGE IV ONE (22:06)
[2020-05-08] MEDS ORDERED: ALTEPLASE 100 ML IV ONE (22:06)
[2020-05-08] MEDS ORDERED: NA CHLORIDE 0.9% 50 ML ONE (22:07)
[2020-05-09 02:51] VITALS: TEMP 98.1
[2020-05-09 02:53] VITALS: BP 158/104; O2SAT 99
--- NOTE | 2020-05-09 05:35 | EKG ---
Test Date: 2020-05-08 Test Time: 21:12:04 Dna Sequencing Associate: NEELAM MEASUREMENT RESULTS: Intervals: Rate: 64 AK: 88 QRSD: 78 QT: 394 QTc: 406 [place]: P: 38 AK: 88 QRS: 14 T: 42 INTERPRETIVE STATEMENTS: Sinus rhythm with short AK Otherwise normal ECG Compared to ECG 05/06/2020 22:26:13 Sinus bradycardia no longer present T-wave abnormality no longer present Possible ischemia no longer present Electronically Signed On 05-09-20 05:35:15 CHLOROBUTADIENE SCRUBBER OPERATOR by Ernesto Zavala
--- NOTE | 2020-05-09 13:55 | RAD REPORT ---
EXAM DESCRIPTION: CT - Neck Angio - 05/09/2020 7:02 am CLINICAL HISTORY: 55-year-old female with headache. Recent history of weakness to the LEFT side of b kiki with left-sided facial numbness. COMPARISON: None. TECHNIQUE: CT angiography of the head and neck following dynamic bolus of intravenous contrast. MIP reformatted reconstructions were created. This exam was performed according to our departmental dose optimization program which includes use of automated exposure control, adjustment of the mA and/or kV according to patient size and/or use of iterative reconstruction technique. FINDINGS: CTA neck: Patent flow opacification of the aortic arch origin right brachiocephalic, left common carotid, and l eft subclavian arteries. The bilateral vertebral artery origins are normal. Patent flow opacification through the bilateral common carotid arteries, carotid bifurcations, cervic al internal/external carotid, and vertebral arteries. CTA brain: Patent flow opacification through anterior circulation (bilateral petrous/cavernous/supraclinoid inte rnal carotid arteries, anterior and middle cerebral arteries), posterior circulation (vertebral-basil ar, posterior-inferior cerebellar, anterior-inferior cerebellar, superior cerebellar, and posterior c erebral arteries), and distal intracranial vasculature. Patent flow opacification through a complete [id number] with a patent anterior communicating ar yaya and bilateral posterior communicating arteries. Normal superficial and deep intracranial venous drainage. No evidence of occlusive thrombus, dissection, or vascular malformation. IMPRESSION: Patent enhancement of the intracranial circulation. Patent enhancement of the cervical vasculature without significant stenosis by NASCET criteria Electronically signed by: Alysha Ferrer MD 05/08/2020 11:11 PM SLITTING AND SHIPPING SUPERVISOR Due to temporary technical issues with the PACS/Fluency reporting system, reports are being signed by the in house radiologists without review as a courtesy to insure prompt reporting. The interpreting radiologist is fully responsible for the content of the report.
--- NOTE | 2020-05-09 14:09 | RAD REPORT ---
EXAM DESCRIPTION: CT - Head angio - 05/09/2020 7:02 am CLINICAL HISTORY: 55-year-old female with headache. Recent history of weakness to the LEFT side of b kiki with left-sided facial numbness. COMPARISON: None. TECHNIQUE: CT angiography of the head and neck following dynamic bolus of intravenous contrast. MIP reformatted reconstructions were created. This exam was performed according to our departmental dose optimization program which includes use of automated exposure control, adjustment of the mA and/or kV according to patient size and/or use of iterative reconstruction technique. FINDINGS: CTA neck: Patent flow opacification of the aortic arch origin right brachiocephalic, left common carotid, and l eft subclavian arteries. The bilateral vertebral artery origins are normal. Patent flow opacification through the bilateral common carotid arteries, carotid bifurcations, cervic al internal/external carotid, and vertebral arteries. CTA brain: Patent flow opacification through anterior circulation (bilateral petrous/cavernous/supraclinoid inte rnal carotid arteries, anterior and middle cerebral arteries), posterior circulation (vertebral-basil ar, posterior-inferior cerebellar, anterior-inferior cerebellar, superior cerebellar, and posterior c erebral arteries), and distal intracranial vasculature. Patent flow opacification through a complete [id number] with a patent anterior communicating ar yaya and bilateral posterior communicating arteries. Normal superficial and deep intracranial venous drainage. No evidence of occlusive thrombus, dissection, or vascular malformation. IMPRESSION: Patent enhancement of the intracranial circulation. Patent enhancement of the cervical vasculature without significant stenosis by NASCET criteria Electronically signed by: Alysha Ferrer MD 05/08/2020 11:11 PM QUILL REAMER Due to temporary technical issues with the PACS/Fluency reporting system, reports are being signed by the in house radiologists without review as a courtesy to insure prompt reporting. The interpreting radiologist is fully responsible for the content of the report.
== END 2020-05-09 00:13 | disposition short-term general hospital (02) ==
LOC: ER 20:46
DX: I63.9 Cerebral infarction, unspecified (principal); I10 Essential (primary) hypertension; R29.705 NIHSS score 5; Z20.822 Contact with and (suspected) exposure to COVID-19
CPT/HCPCS: 92977; 93005; 85025; 80048; 36415; 83735; 85610; 82947; 80076; 85730; 84484; 70496; 70498; 70450; 71045; 96374; 99285; U0003; Q9967; J2997; J7030

== ENCOUNTER 2020-09-13 01:28 | Emergency (ER) | payer OTHER ==
--- OUTSIDE RECORDS SUMMARY | 2020-09-13 01:42 | XMS REPORT | Continuity of Care Document ---
:1965 Author Organization [facility] t Address [address] [place] [address] Care Team Providers Name Role Phone Gerson WELSH Attending Clinician Annetta Aquino MD Attending Clinician Unavailable Kayley Graham MD, Stephanie Attending Clinician [phone] ANNETTA AQUINO Attending Clinician Unavailable Jermain WELSH, S Attending Clinician ANNETTA AQUINO Admitting Clinician Unavailable Payers Payer Name Policy Type Policy Effective Date Expiration Date Sour ce Number AMBETTERAMBETTER [id number] [facility] [id number] 00:00:00 - Medical /2020-Present Center Problems Condition Condition Condition Status Onset Resolution Last Treating Co mments Source Name Details Category Date Date Treatment Clinician Date Acute Acute Disease Active [facility] stroke stroke 00:00: Medical 00 Center Received Received Disease Active [facility] intravenou 2-25 Mandi kes - s tissue s tissue 00:00: Medica l plasminoge plasminoge 00 Ce nter n n activator activator (tPA) in (tPA) in emergency emergency department department Essential Essential Disease Active [facility] hypertensi hypertensi 2-25 Mandi kes - on on 00:00: Medical 00 Center Chest pain Chest pain Disease Active C [facility] at rest at rest [facility] Allergies, Adverse Reactions, Alerts This patient has no known allergies or adverse reactions. Family History Family Member Diagnosis Comments Start Date Stop Date Source Natural father No Known Problem [facility] Natural mother No Known Problem [facility] Social History Social Habit Start Date Stop Date Quantity Comments Source Sex Assigned At [facility] Alcohol Comment 2020-05-09 2020-05-09 Socially, [facility] - 00:00:00 00:00:00 [facility] Tobacco use and 2020-05-09 2020-05-09 Never used [facility] - exposure 00:00:00 00:00:00 [facility] Alcohol intake 2020-05-09 2020-05-09 Current drinker of [facility] - 00:00:00 00:00:00 alcohol (finding) [facility] Smoking Status Start Date Stop Date Source Never smoker [place] [facility] Medications Ordered Filled Start Stop Current Ordering Indication Dosage Frequency Signature Comments Components Source Medication Medication Date Date Medication? Clinician (SIG) Name Name harrison- Yes migraine Take by [facility] [place] aspirin-caf - mouth [facility] - feine 16:26: every 4 Medical 50-325-40 39 (four) Center mg Tab per hours as tablet needed (pain). atorvastati 2021- No 80mg QD Take [address] [facility] (LIPITOR) -10 05- tablet (80 L ukes - 80 MG 00:00: 23:59 mg total) Medica l tablet 00 :00 by mouth Center nightly. aspirin 81 No 81mg QD Take [address] MG chewable -10 05- tablet (81 L ukes - tablet 00:00: 23:59 mg total) Medic al 00 :00 by mouth Center daily. Vital Signs Vital Name Observation Time Observation Value Comments Source Heart rate 2020-05-10 13:19:00 65 /min [facility] Respiratory rate 2020-05-10 13:19:00 14 /min [facility] Oxygen saturation in 2020-05-10 13:19:00 99 /min [facility] - Arterial blood by Medical Ce nter Pulse oximetry Systolic blood 2020-05-10 13:05:00 109 mm[Hg] [facility] pressure [facility] Diastolic blood 2020-05-10 13:05:00 76 mm[Hg] [facility] Body temperature 2020-05-10 12:43:00 36.39 Amanda [facility] Body height 2020-05-09 03:41:00 157.5 cm [facility] Body weight 2020-05-09 03:41:00 77.1 kg [facility] BMI 2020-05-09 03:41:00 31.09 kg/m2 [facility] Procedures Procedure Date / Time Performing Clinician Source Performed POCT-GLUCOSE METER 2020-05-10 11:53:00 Alvaro Aquino [facility] MRA HEAD WITHOUT IV 2020-05-10 10:31:00 Nikitakingman [facility] MRA NECK WITHOUT IV 2020-05-10 10:31:00 [facility] MR BRAIN WITHOUT IV 2020-05-10 10:31:00 [facility] POCT-GLUCOSE METER 2020-05-10 07:27:00 Alvaro Aquino [facility] 2D ECHO W/ DOPPLER 2020-05-10 04:01:30 Abel [facility] (CW/PW/COLOR) [facility] PHOSPHORUS 2020-05-10 03:39:00 Alaina Aponte [facility] BASIC METABOLIC PANEL 2020-05-10 03:39:00 Abel Yue [facility] (7) [facility] CBC W/PLT COUNT & AUTO 2020-05-10 03:39:00 Yue [facility] DIFFERENTIAL [facility] MAGNESIUM 2020-05-10 03:39:00 Alaina Aponte [facility] POCT-GLUCOSE METER 2020-05-09 23:52:00 Alvaro Aquino [facility] TROPONIN I 2020-05-09 22:20:00 Alaina Aponte [facility] BASIC METABOLIC PANEL 2020-05-09 22:20:00 Alaina Aponte [address] MAGNESIUM 2020-05-09 22:20:00 Alaina Aponte [facility] PHOSPHORUS 2020-05-09 22:20:00 Alaina Aponte [facility] POCT-GLUCOSE METER 2020-05-09 17:29:00 Alvaro Aquino [facility] TROPONIN I 2020-05-09 16:35:[facility] PO[facility]SE METER 2020-05-09 11:53:00 Alvaro Aquino [facility] TROPONIN I 2020-05-09 08:48:00 Abel [facility] POCT-GLUCOSE METER 2020-05-09 06:03:00 Alvaro Aquino [facility] BASIC METABOLIC PANEL 2020-05-09 03:15:[address] CBC W/PLT COUNT & AUTO 2020-05-09 03:15:00 Abel [facility] HEMOGLOBIN A1C 2020-05-09 03:15:00 Abel [facility] RPR 2020-05-09 03:15:00 [facility] LIPID [facility]EL 2020-05-09 03:15:00 [facility] TSH/FREE T4 IF INDICATED 2020-05-09 03:15:00 [facility] VITAMIN B12 AND FOLATE 2020-05-09 03:15:00 Abel, [facility] REPORT OF PROCEDURE - 2020-05-09 00:00:00 Provider, Default [facility] - ENDOSCOPY SCAN Scanning [facility] Plan of Care Planned Activity Planned Date Details Comments Source Future Scheduled 2023-05-[address] [facility] Test 00:00:00 (procedure) [code = [facility] 13688103] Future Scheduled 2020-11-[address] [facility] - Test 00:00:00 (Season Ended) [code Medical Center = INFLUENZA VACCINE (Season Ended)] Future Scheduled 2015 SHINGLES VACCINES ([address] [facility] - Test 00:00:00 of 2) [code = [facility] SHINGLES VACCINES (1 of 2)] Future Scheduled [address] [facility] - Test 00:00:00 malignant neoplasm Medical C enter of cervix (procedure) [code = 461162883] Future Scheduled 1984 DTAP/TDAP/TD [facility] - Test 00:00:00 VACCINES (1 - Tdap) [facility] [code = DTAP/TDAP/TD VACCINES (1 - Tdap)] Future Scheduled [address] [facility] - Test 00:00:00 SCREENING [code = [facility] nter HEPATITIS C SCREENING] Future Scheduled 1977 COVID-19 VACCINE (1) [facility] - Test 00:00:00 [code = COVID-[address] VACCINE (1)] Future Scheduled [address] - Test 00:00:00 malignant neoplasm Medical C enter of breast (procedure) [code = 252253196] Future Scheduled [address] - Test 00:00:00 malignant neoplasm Medical C enter of colon (procedure) [code = 767030758] Encounters Start End Encounter Admission Attending Care Care Encounter Source Date/Time Date/Time Type Type Clinicians Facility Department ID 2020-08-15 2020-08-15 Office SHADY Nieto [id number] 14:09:38 15:10:23 Visit Dirk AMBULATOR [id number] Y [id number] 2018-11-16 2018-11-17 Emergency Jermain [facility] [id number] 21:53:19 03:28:00 Yoel León [id number] [place] [id number] Velarde [id number] Results Test Description Test Time Test Comments Results Result Comments Source POC-Glucose meter 2020-05-10 12:05:00 Test Item Value Reference Range Interpretation Comme nts POC-Glucose Meter (test code = 102 mg/dL 70-110 : TESTED AT [facility] [address]) [facility], [address]: Power Plant Supervisor/Techni cristopher ID = [id number] for MuhammadElida sa Lab Interpretation (test code = Normal 97658-0) [facility] [id number] 12:05:00 Test Item Value Reference Range Interpretation Comments POC-GLUCOSE METER 102 mg/dL 70-110 : TESTED A T [facility] [address] (BEAKER) (test code = [address] [facility], 1538) [address]: Power Plant Supervisor/Techni cristopher ID = [id number] for Ar mstrongElidasa 2D Echo W/Doppler(CW/PW/Color) with [id number] 11:21:54Ejection FractionSLEH ECHO HEARTLAB MKCKESSON CPACSInterface, External Ris In - 05/10/2020 11:22 AM CSTTransthoracic Echocardiography Report (TTE) Demographics Patient Name ALECIA WEEKS Date of Study 05/10/2020 Gender Female Visit Number [id number] Race Unknown Room Number 7515 Number Date of 1965 Referring Physician Miles Hare Age 55 year(s) 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 Amount - 20 mlHeight: 62 inches Weight: 76.66 kg (169 lbs) BSA: 1.78 m^2 BMI: 30.91 kg/m^2HR: 56 bpm BP: 129/78 mmHg Summary 1. Normal LV size and function. LVEF is > 60% 2. Diastology: Normal diastolic function 3. Normal RV size and function 4. No significant valvular heart disease 5. Mild TR, EStimated PASP is 30-34 mm HG 6. No pericardial effusion Previous Study No prior studies available for comparison. Signature Findings Technical Quality: Technically adequate exam. Left Ventricle The left ventricle is chamber size (by vol index) is normal (fem tatianna - LVED vol - 29-61ml/m2). No evidence of LV hypertrophy. All of the LV segments contract normally . Global LV systolic function normal . LVEF by Richardson's method of disk assessment is normal (>60%) . Normal diastolic function. Left Atrium LA size is normal (16-34 ml/m2) . Right Ventricle The right ventricular chamber size and systolic function are within normal limits. Right Atrium RA size is normal. Atrial Septum IV saline contrast injection was technically inadequate to detect a PFO (patentforamen ovale) at rest . IV saline contrast injection was negative for a PFO (patent foramen ovale) post Valsalva . Aortic Valve Normal AoV structure and function. Mitral Valve Normal MV structure and function.Tricuspid Valve TV structure is normal. Mild tricuspid regurgitation. Estimated peak systolic PA pressure is 30-35 mmHg (normal range) . Pulmonic Valve Mild pulmonary regurgitation. Normal PV structure appears normal by available views. Aorta Aortic rootsize (SInus of Valsalva diameter) is normal . Pericardium No pericardial effusion is visualized. IVC/SVC/PA/PV/Pleural The estimated RA pressure by IVC dynamics 5-10mmHg . Chambers/Structures Left Atrium LA Volume: 39.42 ml LA Area: 17.56 cm^2 LA Vol. Index: 22 ml/m^2 Left Ventricle LVIDd: 5.02 cm LV Septum Diastolic: 0.8 cm LV PW Diastolic: 0.8 cm LVEDV Richardson's:61.28 ml LVESV Richardson's:21.36 ml LVEF Richardson's: 65.1% LVEDVI: 34 ml/m^2 LVESVI: 12 ml/m^2LVOT Diameter: 1.77 cm Aorta Ao Root S of Sanjana.: 3.14 cm Doppler/Quantitative Measurements Mitral Valve MV Peak E-Wave: 0.79 m/s MV Peak A-Wave: 0.35 m/s E/A Ratio: 2.23 Peak Gradient: 2.47 mmHg Deceleration Time: 186.6 msec MV John. Peak: Tissue Doppler E' Lateral Velocity: 0.09 m/s E/E': 8.37 Aortic Valve Peak Velocity: 1.32 m/s Mean Velocity:0.81 m/s Peak Gradient: 6.93 mmHg Mean Gradient: 3.19 mmHg AV Area (continuity): 2.47 cm^2 AV VTI: 26.33 cm AV DVI: 1 LVOT Peak Velocity: 1.16 m/s Peak Gradient: 5.37 mmHg Mean Velocity: 0.82 m/s Mean Gradient: 3.03 mmHg LVOT Diameter: 1.77 cm LVOT VTI: 26.4 cm LVOT Area: 2.46 cm^2 LVOT SV:64.93 ml LVOT CO: 3.64 l/min LVOT CI: 2.04 l/min/m^2 Tricuspid Valve TR Velocity: 2.42 m/s TR Gradient: 23.37 mmHgLos [facility] County [facility] CenterMR, MRA, BRAIN, WITHOUT [id number] 11:02:00Reason for exam:->Ischemic Stroke EvaluationTORRANCE MEMORIAL MEDICAL CENTERName: ALECIA WEEKS : 1965 Sex: FFINAL REPORT MRA Head CLINICAL HISTORY: Stroke, follow upIschemic StrokeEvaluation TECHNIQUE: MRA of the head utilizing 3-D vzzl-yx-vrviib technique, with 3-D reconstructions. COMPARISON: None FINDINGS: There is no evidence of intracranial aneurysm, focal stenosis, or major branch vessel occlusion. IMPRESSION: No evidence for a major [place] proximal branch vessel occlusion. MRA Neck CLINICAL HISTORY: Stroke, follow upIschemic Stroke Evaluation TECHNIQUE: MRA of the neck utilizing 2-D and 3-D cmtn-fe-uufagz technique, with 3-D reconstructions. COMPARISON: None FINDINGS: The internal carotid arteries in the neck are patent including their bifurcations. There is antegrade flow in the vertebral arteries in the neck. IMPRESSION: No evidence of hemodynamically significant stenosis in the cervical carotid or vertebral arteries by NASCET criteria. Signed: Caryn Martinez MDReport Verified Date/Time: 05/10/2020 11:02:54 Reading Location: [facility] C013V Neuro Re ading Room MR, MRA, NECK, WITHOUT IV [id number] 11:02:00Reason for exam:- >Ischemic Stroke [facility] : 1965 Sex: FFINAL REPORT MRA Head CLINICAL HISTORY: Stroke, follow upIschemic StrokeEvaluation TECHNIQUE: MRA of the head utilizing 3-D thra-nz-fexgzl technique, with 3-D reconstructions. COMPARISON: None FINDINGS: There is no evidence of intracranial aneurysm, focal stenosis, or major branch vessel occlusion. IMPRESSION: No evidence for a major [place] proximal branch vessel occlusion. MRA Neck CLINICAL HISTORY: Stroke, follow upIschemic Stroke Evaluation TECHNIQUE: MRA of the neck utilizing 2-D and 3-D mrpd-cu-zungfy technique, with 3-D reconstructions. COMPARISON: None FINDINGS: The internal carotid arteries in the neck are patent including their bifurcations. There is antegrade flow in the vertebral arteries in the neck. IMPRESSION: No evidence of hemodynamically significant stenosis in the cervical carotid or vertebral arteries by NASCET criteria. Signed: Caryn Martinez Verified Date/Time: 05/10/2020 11:02:54 Reading Location: [address] Neuro Re ading Room MRA head without IV [id number] 11:02:00Interface, External Ris In - 05/10/2020 11:05 AM CSTFINAL REPORT MRA Head CLIN ICAL HISTORY: Stroke, follow upIschemic Stroke Evaluation TECHNIQUE: MRA of the head utilizing 3-D gcbd-ds-trpuhg technique, with 3-D reconstructions. COMPARISON: None FINDINGS: There is no evidence ofintracranial aneurysm, focal stenosis, or major branch vessel occlusion. IMPRESSION: No evidence for a major [place] proximal branch vessel occlusion. MRA Neck CLINICAL HISTORY: Stroke, follow upIschemic Stroke Evaluation TECHNIQUE: MRA of the neck utilizing 2-D and 3-D vkdm-za-mqtqmv technique, with 3-D reconstructions. COMPARISON: None FINDINGS: The internal carotid arteries in the neck are patent including their bifurcations. There is antegrade flow in the vertebral arteries in the neck. IMPRESSION: No evidence of hemodynamically significant stenosis in the cervical carotid or vertebral arteries by NASCET criteria. Signed: Caryn Martinez Verified Date/Time: 05/10/2020 11:02:54 Reading Location: [facility] C013 Neuro Reading Room [facility] without IV [id number] 11:02:00Interface, External Ris In - 05/10/2020 11:05 AM CSTFINAL REPORT MRA Head CLINICAL HISTORY: Stroke, follow upIschemic Stroke Evaluation TECHNIQUE: MRA of the head utilizing 3-D ftwz-ju-qacfts technique, with 3-D reconstructions. COMPARISON: None FINDINGS: There is no evidence ofintracranial aneurysm, focal stenosis, or major branch vessel occlusion. IMPRESSION: No evidence for a major [place] proximal branch vessel occlusion. MRA Neck CLINICAL HISTORY: Stroke, follow upIschemic Stroke Evaluation TECHNIQUE: MRA of the neck utilizing 2-D and 3-D eice-pp-smfybd technique, with 3-D reconstructions. COMPARISON: None FINDINGS: The internal carotid arteries in the neck are patent including their bifurcations. There is antegrade flow in the vertebral arteries in the neck. IMPRESSION: No evidence of hemodynamically significant stenosis in the cervical carotid or vertebral arteries by NASCET criteria. Signed: Caryn Martinez MDReport Verified Date/Time: 05/10/2020 11:02:54 Reading Location: [address] Neuro Reading Room [facility] HospitalMR, BRAIN, WITHOUT [id number] 11:00:00Reason for exam:->StrokeWhat is the patient's sedation requirement?- >No SedationTORRANCE MEMORIAL MEDICAL CENTERName: TERRELL ALECIA : 1965 Sex: FFINAL REPORT MRI Brain without contrast Clinical History: Stroke, followupStroke Technique: MRI of the brain utilizing axial T2, FLAIR, GRE, DWI; sagittal and coronal T1-weighted images. Comparisons: None Findings: There is no evidence of acute infarct or hemorrhage. Thereis mild periventricular and subcortical white matter T2 hyperintensity, which is nonspecific but compatible with chronic microvascular ischemic change. There is mild generalized sulcal prominence without hydrocephalus, midline shift, or apparent mass effect. There are no extra-axial fluid collections.The craniocervical junction is preserved. The major intracranial flow-voids appear patent. IMPRESSION: No evidence of acute infarct, hemorrhage, or hydrocephalus. Signed: Caryn Martinez Verified Date/Time: 05/10/2020 11:00:30 Reading Location: [address] Neuro Reading Room MR brain without IV [id number] 11:00:00Interface, External Ris In - 05/10/2020 11:02 AM CSTFINAL REPORT MRI Brain wit hout contrast Clinical History: Stroke, follow upStroke Technique: MRI of the brain utilizing axial T2, FLAIR, GRE, DWI; sagittal and coronal T1-weighted images. Comparisons: None Findings: There is noevidence of acute infarct or hemorrhage. There is mild periventricular and subcortical white matter T2 hyperintensity, which is nonspecific but compatible with chronic microvascular ischemic change. There is mild generalized sulcal prominence without hydrocephalus, midline shift, or apparent mass effect. There are no extra-axial fluid collections. The craniocervical junction is preserved. The major in tracranial flow-voids appear patent. IMPRESSION: No evidence of acute infarct, hemorrhage, or hydrocephalus. Signed: Caryn Martinez Verified Date/Time: 05/10/2020 11:00:30 Reading Location: [address] Neuro Reading Room [facility] HospitalPOCT-GLUCOSE [id number] 07:45:00 Test Item Value Reference Range Interpretation Comments POC-GLUCOSE METER 100 mg/dL 70-110 : TESTED A T [facility] [address] (BEAKER) (test code = [place], 1538) [address]: Power Plant Supervisor/Techni cristopher ID = [id number] for Ar mstrong, Latesa Basic Metabolic [id number] 04:15:00 Test Item Value Reference Range Interpretation Comments Sodium (test code = 137 meq/L 023-965 7928-2) Potassium (test code = 4.6 meq/L 3.5-5.1 Speci men slightly 2823-3) hemolyzed Chloride (test code = 106 meq/L 98-107 2075-0) CO2 (test code = 22 meq/L 22-29 2028-9) BUN (test code = 10 mg/dL 7-21 3094-0) Creatinine (test code 0.76 mg/dL 0.57-1.25 Specim en slightly = 2160-0) hemolyzed Glucose (test code = 126 mg/dL 70-105 H 2345-7) Calcium (test code = 8.3 mg/dL 8.4-10.2 L 12800-8) EGFR (test code = 79 mL/min/1.73 [place] [address]-7) NOT ACCURATE CREATININE CLEARANCE IN PREDICTING GLOMERULAR FILTRATION RATE . ESTIMATED GFR I S NOT APPLICABLE FOR DIALYSIS PATIENTS. TRISTA (test code = TRISTA) Power Plant Supervisor ID - PIAYA L Lab Interpretation Abnormal (test code = 48433-6) [facility] CenterMagnesium2021-02-26 04:15:00 Test Item Value Reference Range Interpretation Comments Magnesium (test code = 2.6 mg/dL 1.6-2.6 Speci men 30633-2) slightly hemolyzed TRISTA (test code = TRISTA) Power Plant Supervisor ID - PIAYA L Lab Interpretation Normal (test code = 37350-3) [facility] CenterPhosphorus2021-02-26 04:15:00 Test Item Value Reference Range Interpretation Comments Phosphorus (test code 4.0 mg/dL 2.3-4.7 Specim en = 2777-1) slightly hemolyzed TRISTA (test code = TRISTA) Power Plant Supervisor ID - PIAYA L Lab Interpretation Normal (test code = 99673-4) [facility] 04:15:00 Test Item Value Reference Range Interpretation Comments MAGNESIUM (BEAKER) 2.6 mg/dL 1.6-2.6 Specimen slightly (test code = 627) hemolyzed Power Plant Supervisor ID - PIAYA [id number] 04:15:00 Test Item Value Reference Range Interpretation Comments PHOSPHORUS (BEAKER) 4.0 mg/dL 2.3-4.7 Specimen slightly (test code = 604) hemolyzed Power Plant Supervisor ID - ILANA LBASIC METABOLIC [id number] 04:15:00 Test Item Value Reference Range Interpretation Comments SODIUM (BEAKER) 137 meq/L 136-145 (test code = 381) POTASSIUM (BEAKER) 4.6 meq/L 3.5-5.1 Specimen slightly (test code = 379) hemolyzed CHLORIDE (BEAKER) 106 meq/L 98-107 (test code = 382) CO2 (BEAKER) (test 22 meq/L 22-29 code = 355) BLOOD UREA NITROGEN 10 mg/dL 7-21 (BEAKER) (test code = 354) CREATININE (BEAKER) 0.76 mg/dL 0.57-1.25 Specimen slightly (test code = 358) hemolyzed GLUCOSE RANDOM 126 mg/dL 70-105 H (BEAKER) (test code = 652) CALCIUM (BEAKER) 8.3 mg/dL 8.4-10.2 L (test code = 697) EGFR (BEAKER) (test 79 mL/min/1.73 ESTIMA JANELL GFR IS code = 1092) sq m NOT ACCURATE CREATININE CLEARANCE IN PREDICTING GLOMERULAR FILTRATION RATE . ESTIMATED GFR I S NOT APPLICABLE FOR DIALYSIS PATIEN TS. Power Plant Supervisor ID - PIBILLIE LCBC with platelet count + automated [id number] 03:49:00 Test Item Value Reference Range Interpretation Comments WBC (test code = 7.2 See_Comment [Automated message] 6690-2) The system [employer] generated this result transmitted ref erence range: 3.5 - 10 .5 K/L. The refe rence range was not u sed to interpret this result as normal/abnor mal. RBC (test code = 789-8) 4.49 See_Comment [Au tomated message] The system [employer] generated this result transmitted ref erence range: 3.93 - 5 .22 M/L. The refe rence range was not u sed to interpret this result as normal/abnor mal. MCHC (test code = 32.5 See_Comment [Automate d message] 786-4) The system [employer] generated this result transmitted ref erence range: 32.2 - 3 5.5 GM/DL. The refe rence range was not u sed to interpret this result as normal/abnor mal. Hematocrit (test code = 38.5 % 34.1-44.9 4544-3) MCV (test code = 787-2) 85.7 fL 79.4-94.8 MCH (test code = 785-6) 27.8 pg 25.6-32.2 RDW (test code = 788-0) 13.8 % 11.7-14.4 Platelets (test code = 165 See_Comment [Aut omated message] 777-3) The system [employer] generated this result transmitted ref erence range: 150 - 45 0 K/CU MM. The referen ce range was not used to interpret this result as normal/abnor mal. MPV (test code = 10.9 fL 9.4-12.3 98012-0) nRBC (test code = 413) 0 See_Comment [Aut omated message] The system [employer] generated this result transmitted ref erence range: 0 - 0 /1 00 WBC. The reference r mati was not used to int erpret this result as normal/abnormal . % Neutros (test code = 75 % 429) % Lymphs (test code = 18 % 430) % Monos (test code = 5 % 431) % Eos (test code = 432) 1 % % Baso (test code = 0 % 437) # Neutros (test code = 5.45 See_Comment [Aut omated message] 670) The system [employer] generated this result transmitted ref erence range: 1.56 - 6 .13 K/L. The refe rence range was not u sed to interpret this result as normal/abnor mal. # Lymphs (test code = 1.33 See_Comment [Auto mated message] 414) The system [employer] generated this result transmitted ref erence range: 1.18 - 3 .74 K/L. The refe rence range was not u sed to interpret this result as normal/abnor mal. # Monos (test code = 0.33 See_Comment [Autom ated message] 415) The system [employer] generated this result transmitted ref erence range: 0.24 - 0 .36 K/L. The refe rence range was not u sed to interpret this result as normal/abnor mal. # Eos (test code = 416) 0.07 See_Comment [Au tomated message] The system [employer] generated this result transmitted ref erence range: 0.04 - 0 .36 K/L. The refe rence range was not u sed to interpret this result as normal/abnor mal. # Baso (test code = 0.02 See_Comment [Automa janell message] 417) The system [employer] generated this result transmitted ref erence range: 0.01 - 0 .08 K/L. The refe rence range was not u sed to interpret this result as normal/abnor mal. Immature 0 % 0-1 Granulocytes-Relative (test code = 2801) [facility] W/PLT COUNT & AUTO [id number] 03:49:00 Test Item Value Reference Range Interpretation Comments WHITE BLOOD CELL COUNT (BEAKER) 7.2 K/ L 3.5-10.5 (test code = 775) RED BLOOD CELL COUNT (BEAKER) 4.49 M/ L 3.93-5.22 (test code = 761) HEMOGLOBIN (BEAKER) (test code = 12.5 GM/DL 11.2-15.7 410) HEMATOCRIT (BEAKER) (test code = 38.5 % 34.1-44.9 411) MEAN CORPUSCULAR VOLUME (BEAKER) 85.7 fL 79.4-94.8 (test code = 753) MEAN CORPUSCULAR HEMOGLOBIN 27.8 pg 25.6-32.2 (BEAKER) (test code = 751) MEAN CORPUSCULAR HEMOGLOBIN CONC 32.5 GM/DL 32.2-35.5 (BEAKER) (test code = 752) RED CELL DISTRIBUTION WIDTH 13.8 % 11.7-14.4 (BEAKER) (test code = 412) PLATELET COUNT (BEAKER) (test 165 K/CU MM 150-450 code = 756) MEAN PLATELET VOLUME (BEAKER) 10.9 fL 9.4-12.3 (test code = 754) NUCLEATED RED BLOOD CELLS 0 /100 WBC 0-0 (BEAKER) (test code = 413) NEUTROPHILS RELATIVE PERCENT 75 % (BEAKER) (test code = 429) LYMPHOCYTES RELATIVE PERCENT 18 % (BEAKER) (test code = 430) MONOCYTES RELATIVE PERCENT 5 % (BEAKER) (test code = 431) EOSINOPHILS RELATIVE PERCENT 1 % (BEAKER) (test code = 432) BASOPHILS RELATIVE PERCENT 0 % (BEAKER) (test code = 437) NEUTROPHILS ABSOLUTE COUNT 5.45 K/ L 1.56-6.13 (BEAKER) (test code = 670) LYMPHOCYTES ABSOLUTE COUNT 1.33 K/ L 1.18-3.74 (BEAKER) (test code = 414) MONOCYTES ABSOLUTE COUNT (BEAKER) 0.33 K/ L 0.24-0.36 (test code = 415) EOSINOPHILS ABSOLUTE COUNT 0.07 K/ L 0.04-0.36 (BEAKER) (test code = 416) BASOPHILS ABSOLUTE COUNT (BEAKER) 0.02 K/ L 0.01-0.08 (test code = 417) IMMATURE GRANULOCYTES-RELATIVE 0 % 0-1 PERCENT (BEAKER) (test code = 2801) POCT-GLUCOSE [id number] 00:11:00 Test Item Value Reference Range Interpretation Comments POC-GLUCOSE METER 89 mg/dL 70-110 : [facility] ([facility] (test code = [facility], 1538) [address]: Power Plant Supervisor/Techni cristopher ID = [id number] for Eve Zhang Troponin [id number] 23:08:00 Test Item Value Reference Range Interpretation Comments Troponin I (test code = <0.01 0-0.03 38082-9) TRISTA (test code = TRISTA) Troponin I (TnI) levels must be interpreted in the context of the presenting symptoms and the clinical findings. Elevated TnI levels indicate myocardial damage, but are not specific for ischemic heart disease. Elevated TnI levels are seen in patients with other cardiac conditions (including myocarditis and congestive heart failure), and slight TnI elevations occur in patients with other conditions, including sepsis, renal failure, acidosis, acute neurological disease, and persistent tachyarrhythmia.Opera tor ID - JOSÉ ANTONIO Lab Interpretation (test Normal code = 86102-2) [facility] CenterTRROS[facility]IN [id number] 23:08:00 Test Item Value Reference Range Interpretation Comments TROPONIN I (BEAKER) (test code = 397) < ng/mL 0.00-0.03 Troponin I (TnI) levels must be interpreted in the context of the presenting symptoms and the clinical findings. Elevated TnI levels indicate myocardial damage, but are not specific for ischemic heart disease. Elevated TnI levels are seen in patients with other cardiac conditions (including myocarditis and congestive heart failure), and slight TnI elevations occur in patients with other conditions, including sepsis, renal failure, acidosis, acute neurological disease, and persistent tachyarrhythmia.Power Plant Supervisor ID - [id number] 22:59:00 Test Item Value Reference Range Interpretation Comments MAGNESIUM (BEAKER) 2.0 mg/dL 1.6-2.6 Specimen slightly (test code = 627) hemolyzed Power Plant Supervisor ID - [id number] 22:59:00 Test Item Value Reference Range Interpretation Comments PHOSPHORUS (BEAKER) 3.6 mg/dL 2.3-4.7 Specimen slightly (test code = 604) hemolyzed Power Plant Supervisor ID - EMERSONBASIC METABOLIC [id number] 22:59:00 Test Item Value Reference Range Interpretation Comments SODIUM (BEAKER) 138 meq/L 136-145 (test code = 381) POTASSIUM (BEAKER) 3.9 meq/L 3.5-5.1 Specimen slightly (test code = 379) hemolyzed CHLORIDE (BEAKER) 108 meq/L 98-107 H (test code = 382) CO2 (BEAKER) (test 20 meq/L 22-29 L code = 355) BLOOD UREA NITROGEN 11 mg/dL 7-21 (BEAKER) (test code = 354) CREATININE (BEAKER) 0.76 mg/dL 0.57-1.25 Specimen slightly (test code = 358) hemolyzed GLUCOSE RANDOM 124 mg/dL 70-105 H (BEAKER) (test code = 652) CALCIUM (BEAKER) 8.2 mg/dL 8.4-10.2 L (test code = 697) EGFR (BEAKER) (test 79 mL/min/1.73 ESTIMA JANELL GFR IS code = 1092) sq m NOT ACCURATE CREATININE CLEARANCE IN PREDICTING GLOMERULAR FILTRATION RATE . ESTIMATED GFR I S NOT APPLICABLE FOR DIALYSIS PATIEN TS. Power Plant Supervisor ID - EMERSONPOCT-GLUCOSE [id number] 17:42:00 Test Item Value Reference Range Interpretation Comments POC-GLUCOSE METER 151 mg/dL 70-110 H : TESTED A T [facility] 6720 (BEAKER) (test code = [facility], 1538) [address]: Power Plant Supervisor/Techni cristopher ID = [id number] for Aaliyah Goncalves TROPONIN [id number] 17:10:00 Test Item Value Reference Range Interpretation Comments TROPONIN I (BEAKER) (test code = 397) < ng/mL 0.00-0.03 Troponin I (TnI) levels must be interpreted in the context of the presenting symptoms and the clinical findings. Elevated TnI levels indicate myocardial damage, but are not specific for ischemic heart disease. Elevated TnI levels are seen in patients with other cardiac conditions (including myocarditis and congestive heart failure), and slight TnI elevations occur in patients with other conditions, including sepsis, renal failure, acidosis, acute neurological disease, and persistent tachyarrhythmia.Power Plant Supervisor ID - DBPOCT-GLUCOSE METER 2020-05-09 12:06:00 Test Item Value Reference Range Interpretation Comments POC-GLUCOSE METER 83 mg/dL 70-110 : TESTED A T [facility] 6720 (BEAKER) (test code = [facility], 1538) [address]: Power Plant Supervisor/Techni cristopher ID = [id number] for EDDIE STEVEN [id number] 11:37:00 Test Item Value Reference Range Interpretation Comments RPR (test code = 97390-9) Nonreactive Nonreactive Lab Interpretation (test code = Normal 35458-4) [facility] [id number] 11:37:00 Test Item Value Reference Range Interpretation Comments RPR SCREEN (BEAKER) (test code = Nonreactive Nonreactive 420) TROPONIN [id number] 09:27:00 Test Item Value Reference Range Interpretation Comments TROPONIN I (BEAKER) (test code = 397) < ng/mL 0.00-0.03 Troponin I (TnI) levels must be interpreted in the context of the presenting symptoms and the clinical findings. Elevated TnI levels indicate myocardial damage, but are not specific for ischemic heart disease. Elevated TnI levels are seen in patients with other cardiac conditions (including myocarditis and congestive heart failure), and slight TnI elevations occur in patients with other conditions, including sepsis, renal failure, acidosis, acute neurological disease, and persistent tachyarrhythmia.Power Plant Supervisor ID - JOSÉ ANTONIOHemoglobin A1c 2020-05-09 08:40:00 Test Item Value Reference Range Interpretation Comments Hemoglobin A1C (test code = 4548-4) 5.6 % 4.3-6.1 Lab Interpretation (test code = Normal 26391-1) [facility] CenterHEMOGLOBIN [id number] 08:40:00 Test Item Value Reference Range Interpretation Comments HEMOGLOBIN A1C (BEAKER) (test code = 5.6 % 4.3-6.1 368) Vitamin B12 and [id number] 06:48:00 Test Item Value Reference Range Interpretation Comments Vitamin B12 (test 979 pg/mL 213-816 H code = 2132-9) Folate (test code = 33.20 ng/mL See_Comment [Automa janell 2284-8) message] The system which generated this result transmitted reference range : >=7.00. The reference range was not used to interpret this result as normal/abnormal . TRISTA (test code = TRISTA) Power Plant Supervisor ID - ILANA Buckley ARTIBILLIE Joseph Lab Interpretation Abnormal (test code = 65401-2) [facility] CenterVITAMIN B12 AND [id number] 06:48:00 Test Item Value Reference Range Interpretation Comments VITAMIN B12 979 pg/mL 213-816 H (BEAKER) (test code = 774) FOLATE (BEAKER) 33.20 ng/mL See_Comment [Automated message] (test code = 362) The system which generated this result transmitted ref erence range: >=7.00. The reference range was not used to interpr et this result as normal/abnormal . Power Plant Supervisor ID - ILANA Buckley ARTIBILLIE LTSH/Free T4 If [id number] 06:45:00 Test Item Value Reference Range Interpretation Comments TSH (test code = 1.084 See_Comment [Automated 22318-5) message] The system which generated this result transmit janell reference range : 0.350 - 4.940 uIU/mL. The reference range was not used to interpret this result as normal/abnormal . TRISTA (test code = TRISTA) Power Plant Supervisor ID - ARTIBILLIE Joseph Lab Interpretation Normal (test code = 03185-7) [facility] CenterTSH/FREE T4 IF [id number] 06:45:00 Test Item Value Reference Range Interpretation Comments THYROID STIMULATING HORMONE 1.084 uIU/mL 0.350-4.940 (BEAKER) (test code = 772) Power Plant Supervisor ID - ILANA LPOCT-GLUCOSE [id number] 06:16:00 Test Item Value Reference Range Interpretation Comments POC-GLUCOSE METER 83 mg/dL 70-110 : TESTED A T [facility] 6720 (BEAKER) (test code = [facility] [place], 1538) [address]: Power Plant Supervisor/Techni cristopher ID = [id number] for MEGAN RIVERA Lipid [id number] 03:39:00 Test Item Value Reference Range Interpretation Comments Triglycerides (test 90 mg/dL code = 2571-8) Cholesterol (test code 153 mg/dL = 2093-3) HDL (test code = 44 mg/dL 2084-9) LDL Calculated (test 91 mg/dL code = 26895-2) TRISTA (test code = TRISTA) Triglyceride Reference Range: Low Risk <150 Borderline 150-199 High Risk 200-499 Very High Risk >=500 Cholesterol Reference Range: Low Risk <200 Borderline 200-239 High Risk >240 HDL Cholesterol Reference Range: Low Risk >=60 High Risk <40 LDL Cholesterol Reference Range: Optimal <100 Near Optimal 100-129 Borderline 130-159 High 160-189 Very High >=190 Power Plant Supervisor ID - ARTIBILLIE Joseph [facility] METABOLIC [id number] 03:39:00 Test Item Value Reference Range Interpretation Comments SODIUM (BEAKER) 141 meq/L 136-145 (test code = 381) POTASSIUM (BEAKER) 3.6 meq/L 3.5-5.1 (test code = 379) CHLORIDE (BEAKER) 109 meq/L 98-107 H (test code = 382) CO2 (BEAKER) (test 20 meq/L 22-29 L code = 355) BLOOD UREA NITROGEN 10 mg/dL 7-21 (BEAKER) (test code = 354) CREATININE (BEAKER) 0.71 mg/dL 0.57-1.25 (test code = 358) GLUCOSE RANDOM 101 mg/dL 70-105 (BEAKER) (test code = 652) CALCIUM (BEAKER) 8.1 mg/dL 8.4-10.2 L (test code = 697) EGFR (BEAKER) (test 85 mL/min/1.73 ESTIMA JANELL GFR IS code = 1092) sq m NOT ACCURATE CREATININE CLEARANCE IN PREDICTING GLOMERULAR FILTRATION RATE . ESTIMATED GFR I S NOT APPLICABLE FOR DIALYSIS PATIEN TS. Power Plant Supervisor ID - PIAYA LLIPID [id number] 03:39:00 Test Item Value Reference Range Interpretation Comments TRIGLYCERIDES (BEAKER) (test code = 90 mg/dL 540) CHOLESTEROL (BEAKER) (test code = 153 mg/dL 631) HDL CHOLESTEROL (BEAKER) (test code 44 mg/dL = 976) LDL CHOLESTEROL CALCULATED (BEAKER) 91 mg/dL (test code = 633) Triglyceride Reference Range: Low Risk <150 Borderline 150-199 High Risk 200-499 Very High Risk >=500Cholesterol Reference Range: Low Risk <200 Borderline 200-239 High Risk >240HDL Cholesterol Reference Range: Low Risk >=60 High Risk <40LDL Cholesterol Reference Range: Optimal <100 Near Optimal 100-129 Borderline 130-159 High 160-189 Very High >=190 Power Plant Supervisor ID - PIAYALCBC W/PLT COUNT & AUTO [id number] 03:25:00 Test Item Value Reference Range Interpretation Comments WHITE BLOOD CELL COUNT (BEAKER) 5.5 K/ L 3.5-10.5 (test code = 775) RED BLOOD CELL COUNT (BEAKER) 4.55 M/ L 3.93-5.22 (test code = 761) HEMOGLOBIN (BEAKER) (test code = 12.6 GM/DL 11.2-15.7 410) HEMATOCRIT (BEAKER) (test code = 38.7 % 34.1-44.9 411) MEAN CORPUSCULAR VOLUME (BEAKER) 85.1 fL 79.4-94.8 (test code = 753) MEAN CORPUSCULAR HEMOGLOBIN 27.7 pg 25.6-32.2 (BEAKER) (test code = 751) MEAN CORPUSCULAR HEMOGLOBIN CONC 32.6 GM/DL 32.2-35.5 (BEAKER) (test code = 752) RED CELL DISTRIBUTION WIDTH 13.6 % 11.7-14.4 (BEAKER) (test code = 412) PLATELET COUNT (BEAKER) (test 164 K/CU MM 150-450 code = 756) MEAN PLATELET VOLUME (BEAKER) 11.2 fL 9.4-12.3 (test code = 754) NUCLEATED RED BLOOD CELLS 0 /100 WBC 0-0 (BEAKER) (test code = 413) NEUTROPHILS RELATIVE PERCENT 56 % (BEAKER) (test code = 429) LYMPHOCYTES RELATIVE PERCENT 37 % (BEAKER) (test code = 430) MONOCYTES RELATIVE PERCENT 5 % (BEAKER) (test code = 431) EOSINOPHILS RELATIVE PERCENT 1 % (BEAKER) (test code = 432) BASOPHILS RELATIVE PERCENT 0 % (BEAKER) (test code = 437) NEUTROPHILS ABSOLUTE COUNT 3.12 K/ L 1.56-6.13 (BEAKER) (test code = 670) LYMPHOCYTES ABSOLUTE COUNT 2.03 K/ L 1.18-3.74 (BEAKER) (test code = 414) MONOCYTES ABSOLUTE COUNT (BEAKER) 0.28 K/ L 0.24-0.36 (test code = 415) EOSINOPHILS ABSOLUTE COUNT 0.06 K/ L 0.04-0.36 (BEAKER) (test code = 416) BASOPHILS ABSOLUTE COUNT (BEAKER) 0.01 K/ L 0.01-0.08 (test code = 417) IMMATURE GRANULOCYTES-RELATIVE 0 % 0-1 PERCENT (BEAKER) (test code = 2801) [id number] 00:00:00Ordered by an unspecified provider.[facility]
[2020-09-13] MEDS ORDERED: LIDOCAINE 1% MPF 5 ML VIAL ONE (02:22)
--- NOTE | 2020-09-13 03:35 | ER ---
Nurse's Notes [facility] Name: Makayla Tejada Age: 55 yrs Sex: Female : 1965 Arrival Date: 09/13/2020 Time: 01:28 Bed 4 Private MD: Diagnosis: Laceration of lip and oral cavity without foreign body;Contusion of unspecified part of head Presentation: 09/13 02:00 Chief complaint: Patient states: Pt reports she fell at home hit the right side of her ea face denied LOC. Care prior to arrival: None. Mechanism of Injury: No Mechanism of Injury. Trauma event details: Injury occurred in the [facility], Injury occurred: at home. Injury occurred: September 13, 2020. 02:00 Acuity: MELISA 3 ea 02:00 Method Of Arrival: Wheelchair ea 02:00 Coronavirus screen: At this time, the client does not indicate any symptoms associated ea with coronavirus-19. Ebola Screen: No symptoms or risks identified at this time. Initial Sepsis Screen: Does the patient meet any 2 criteria? No. Patient's initial sepsis screen is negative. Does the patient have a suspected source of infection? No. Patient's initial sepsis screen is negative. Risk Assessment: Do you want to hurt yourself or someone else? Patient reports no desire to harm self or others. Onset of symptoms. Trauma Activation: Not Applicable Physician: ED Physician; Name: ; Notified At: ; Arrived At: Physician: General Surgeon; Name: ; Notified At: ; Arrived At: Physician: Radiology; Name: ; Notified At: ; Arrived At: Physician: Respiratory; Name: ; Notified At: ; Arrived At: Physician: Lab; Name: ; Notified At: ; Arrived At: Historical: - Allergies: 02:37 No Known Drug Allergies; ea - PMHx: 02:37 Migraines; B shoulder repair-tendon; ea - Immunization history:: Adult Immunizations up to date. - Immunization history: Last tetanus immunization: unknown. - Family history:: not pertinent. - Social history:: Smoking status: unknown. - Hospitalizations: : No recent hospitalization is reported. Screenin:33 Abuse screen: Denies threats or abuse. Nutritional screening: No deficits noted. ea Tuberculosis screening: No symptoms or risk factors identified. Fall Risk None identified. Primary Survey: 02:00 NO uncontrolled hemorrhage observed. A: The patient is alert. Airway: patent. ea Breathing/Chest: Respiratory pattern: regular, Respiratory effort: spontaneous, unlabored. Circulation: Skin color: pink. Disability Alert. Exposure/Environment: Obvious injury(ies) are noted at this time: laceration to right lip, abrasions on right side of face. 02:38 Reassessment Airway Airway Patent Breathing/Chest Respiratory pattern Regular ea Respiratory effort Spontaneous Unlabored Circulation Color [place] Temperature Warm Disability Alert. Assessment: 02:37 General: Appears uncomfortable, Behavior is calm, cooperative, appropriate for age. ea Pain: Complains of pain in mouth and right cheek. Neuro: Level of Consciousness is awake, alert, obeys commands, Oriented to person, place, time. Cardiovascular: Patient's skin is warm and dry. Respiratory: Airway is patent Respiratory effort is even, unlabored, Respiratory pattern is regular, symmetrical. Derm: Skin is pink, warm \T\ dry. 03:46 Reassessment: Patient and/or family updated on plan of care and expected duration. Pain ea level reassessed. Patient is alert, oriented x 3, equal unlabored respirations, skin warm/dry/pink. Discharge instruction given to patient, verbalized the understanding of instruction. Pt left ED ambulatory accompanied by family. Vital Signs: 01:42 BP 140 / 80; Pulse 78; Resp 18; Temp 98.6(O); Pulse Ox 97% on R/A; mw2 03:47 BP 138 / 60; Pulse 80; Resp 18; Pulse Ox 99% ; ea Malathi Coma Score: 02:00 Eye Response: spontaneous(4). Verbal Response: oriented(5). Motor Response: obeys ea commands(6). Total: 15. 03:47 Eye Response: spontaneous(4). Verbal Response: oriented(5). Motor Response: obeys ea commands(6). Total: 15. Trauma Score (Adult): 02:00 Eye Response: spontaneous(1); Verbal Response: oriented(1); Motor Response: obeys ea commands(2); Systolic BP: > 89 mm Hg(4); Respiratory Rate: 10 to 29 per min(4); [place] Score: 15; Trauma Score: 12 ED Course: 01:28 Patient arrived in ED. bp1 01:38 Ganga Hensley MD is Attending Physician. rn 01:52 Najma Blake, RN is Primary Nurse. ea 02:00 Arm band placed on right wrist. Patient placed in an exam room, on a stretcher, on ea pulse oximetry. 02:00 Patient has correct armband on for positive identification. Bed in low position. Call ea light in reach. 02:18 CT Facial Bones W/O Con In Process Unspecified. EDMS 02:18 CT Head C Spine In Process Unspecified. EDMS 02:33 Patient maintains SpO2 saturation greater than 95% on room air. ea 02:33 Thermoregulation: warm blanket given to patient. ea 02:35 Triage completed. ea 02:44 Assist provider with laceration repair on mouth that was 2.5 cm. or less using sutures. ea Set up tray. Performed by Ganga Hensley MD Patient tolerated well. 03:46 Patient did not have IV access during this emergency room visit. ea Administered Medications: 02:20 Drug: Lidocaine (1 %) 1 vials {Note: by provider.} Volume: 5 ml; Route: Infiltration; drew 03:45 Drug: Tetanus-Diphtheria Toxoid Adult 0.5 ml {[facility]: EUDOWEB. Exp: ea 08/04/2022. Lot #: [id number]. } Route: IM; Site: right deltoid; 03:48 Follow up: Response: No adverse reaction ea Intake: 03:46 PO: 0ml; Total: 0ml. ea Outcome: 03:34 Discharge ordered by MD. rn 03:45 Discharged to home ambulatory, with family. ea 03:45 Condition: stable 03:45 Discharge instructions given to patient, Instructed on discharge instructions, follow up and referral plans. medication usage, Demonstrated understanding of instructions, follow-up care, medications. 03:46 Patient's length of stay was not longer than 2 hours. ea 03:47 Patient left the ED. ea Signatures: Dispatcher [employer] EDCaryl Mao RN RN bb Nieto, Roman, MD MD rn Antunez, Elena, RN RN ea [place], MyKena mw2 Carlee Mays bp1
--- NOTE | 2020-09-13 03:35 | EDPHYS ---
Physician Documentation [facility] Name: Makayla Tejada Age: 55 yrs Sex: Female : 1965 Arrival Date: 09/13/2020 Time: 01:28 Bed 4 Private MD: ED Physician Ganga Hensley HPI: 09/13 01:52 This 55 yrs old Female presents to ER via Unassigned with complaints of Fall rn Injury, Eye Injury, Lip Injury, Facial Injury. 01:52 Details of fall: The patient fell from an upright position, while walking. Onset: The rn symptoms/episode began/occurred 1 hour(s) ago. Associated injuries: The patient sustained injury to the head. Associated injuries: The patient sustained injury to the head, contusion, hematoma, laceration, swelling, tenderness. Severity of symptoms: At their worst the symptoms were moderate, in the emergency department the symptoms are unchanged. The patient has not experienced similar symptoms in the past. The patient has not recently seen a physician. Reports drinking tonight, tripped, fell onto ground, hit face, + swelling and pain, no LOC, not on blood thinners, remembers all events. Has been icing it, family finally convinced her to come in for eval. Denies other injuries to neck/chest/abdomen/extremities. Reports only right side of face hurts. . Historical: - Allergies: 02:37 No Known Drug Allergies; ea - PMHx: 02:37 Migraines; B shoulder repair-tendon; ea - Immunization history:: Adult Immunizations up to date. - Immunization history: Last tetanus immunization: unknown. - Family history:: not pertinent. - Social history:: Smoking status: unknown. - Hospitalizations: : No recent hospitalization is reported. ROS: 01:52 Constitutional: Negative for fever, chills, and weight loss, Eyes: Negative for rn redness, and discharge, + injury and pain around right eye. ENT: Negative for injury, pain, and discharge, Neck: Negative for injury, pain, and swelling, Cardiovascular: Negative for chest pain, palpitations, and edema, Respiratory: Negative for shortness of breath, cough, wheezing, and pleuritic chest pain, Abdomen/GI: Negative for abdominal pain, nausea, vomiting, diarrhea, and constipation, Back: Negative for injury and pain, : Negative for injury, bleeding, discharge, and swelling, MS/Extremity: Negative for injury and deformity, Skin: + laceration to right upper lip/face. Neuro: Negative for weakness, numbness, tingling, and seizure. Exam: 01:52 Constitutional: This is a well developed, well nourished patient who is awake, alert, rn and in no acute distress. Head/Face: Normocephalic, + swelling and contusion to right side of face, periorbital region and right cheek, + 2 cm irregular laceration right perioral area that stops just at right upper francisca border. Eyes: Pupils equal round and reactive to light, extra-ocular motions intact. Lids and lashes normal. Conjunctiva and sclera are non-icteric and not injected. Cornea within normal limits. ENT: No intraoral bleeding or tongue laceration, small punctate area inner right lip under area of external laceration, does open a little Neck: No cervical spinal tenderness or deformity. Chest/axilla: Normal chest wall appearance and motion. Nontender with no deformity. No lesions are appreciated. Cardiovascular: Regular rate and rhythm. No pulse deficits. Respiratory: No increased work of breathing, no retractions or nasal flaring. Abdomen/GI: soft, non-tender Back: No spinal tenderness. No costovertebral tenderness. Full range of motion. Skin: Warm, dry MS/ Extremity: Pulses equal, no cyanosis. Neuro: Awake and alert, GCS 15, oriented to person, place, time, and situation. Cranial nerves II-XII grossly intact. Motor strength 5/5 in all extremities. Sensory grossly intact. Vital Signs: 01:42 BP 140 / 80; Pulse 78; Resp 18; Temp 98.6(O); Pulse Ox 97% on R/A; mw2 03:47 BP 138 / 60; Pulse 80; Resp 18; Pulse Ox 99% ; ea [place] Coma Score: 02:00 Eye Response: spontaneous(4). Verbal Response: oriented(5). Motor Response: obeys ea commands(6). Total: 15. 03:47 Eye Response: spontaneous(4). Verbal Response: oriented(5). Motor Response: obeys ea commands(6). Total: 15. Trauma Score (Adult): 02:00 Eye Response: spontaneous(1); Verbal Response: oriented(1); Motor Response: obeys ea commands(2); Systolic BP: > 89 mm Hg(4); Respiratory Rate: 10 to 29 per min(4); Malathi Score: 15; Trauma Score: 12 Laceration: 02:47 Wound Repair of 2cm ( 0.8in ) subcutaneous laceration to right upper lip. Distal rn neuro/vascular/tendon intact. Anesthesia: Wound infiltrated with 2 mls of 1% lidocaine. Wound prep: Extensive cleansing by nurse by me, Wound irrigation by nurse, Particulate matter removal of dirt by me, Wound explored extensively, Copious irrigation. Skin closed with 6 5-0 fast absorbing gut using interrupted sutures and sterile technique. Mucosal surface closed with 1 5-0 fast absorbing gut using interrupted sutures and sterile technique. Dressed with steri-strips. Patient tolerated well. MDM: 01:38 Patient medically screened. rn 03:33 Differential diagnosis: abrasion, closed head injury, contusion, fracture, laceration, rn sprain, strain. Data reviewed: vital signs, nurses notes, radiologic studies, CT scan, and as a result, I will discharge patient. Counseling: I had a detailed discussion with the patient and/or guardian regarding: the historical points, exam findings, and any diagnostic results supporting the discharge/admit diagnosis, radiology results, the need for outpatient follow up, to return to the emergency department if symptoms worsen or persist or if there are any questions or concerns that arise at home. Response to treatment: the patient's symptoms have markedly improved after treatment, and as a result, I will discharge patient. Special discussion: Based on the patient's history, exam and DX evaluation, there is no indication for emergent intervention or inpatient TX. It is understood by the patient/guardian that if the SXs persist or worsen they need to return immediately for re-evaluation. I discussed with the patient/guardian in detail that at this point there is no indication for admission to the hospital. It is understood, however, that if the symptoms persist or worsen the patient needs to return immediately for re-evaluation. 09/13 01:41 Order name: CT Facial Bones W/O Con rn 09/13 01:41 Order name: CT Head C Spine rn 09/13 01:42 Order name: Suture Tray at Bedside; Complete Time: 02:11 rn 09/13 01:42 Order name: Wound Care; Complete Time: 02:11 rn 09/13 01:42 Order name: Ice pack; Complete Time: 02:11 rn Administered Medications: 02:20 Drug: Lidocaine (1 %) 1 vials {Note: by provider.} Volume: 5 ml; Route: Infiltration; bb 03:45 Drug: Tetanus-Diphtheria Toxoid Adult 0.5 ml {Product Manager Medical Device: [employer]. Exp: ea 08/04/2022. Lot #: [id number]. } Route: IM; Site: right deltoid; 03:48 Follow up: Response: No adverse reaction ea Disposition Summary: 09/13/20 03:34 Discharge Ordered Location: Home rn Problem: new rn Symptoms: have improved rn Condition: Stable rn Diagnosis - Laceration of lip and oral cavity without foreign body rn - Contusion of unspecified part of head rn Followup: rn - With: Private Physician - When: As needed - Reason: Recheck today's complaints, Re-evaluation by your physician Discharge Instructions: - Discharge Summary Sheet rn - Mouth Laceration rn - Facial Laceration rn - Sutured house registry rn Forms: - Medication Reconciliation Form rn - Thank You Letter rn - Antibiotic promotions intern - Prescription Opioid Use rn Prescriptions: - Augmentin 875-125 mg Oral Tablet - take 1 tablet by ORAL route every 12 hours for 10 days; 20 tablet; Refills: 0, rn Product Selection Permitted Signatures: Dispatcher [employer] EDCaryl Mao RN RN bb Nieto, Roman, MD MD rn Antunez, Elena, RN RN ea Corrections: (The following items were deleted from the chart) 02:47 01:52 Constitutional: This is a well developed, well nourished patient who is awake, rn alert, and in no acute distress. Head/Face: Normocephalic, + swelling and contusion to right side of face, periorbital region and right cheek, + 2 cm irregular laceration right perioral area that stops just at right upper francisca border. Eyes: Pupils equal round and reactive to light, extra-ocular motions intact. Lids and lashes normal. Conjunctiva and sclera are non-icteric and not injected. Cornea within normal limits. ENT: No intraoral bleeding or tongue laceration, small punctate area inner right lip under area of external laceration, does not gape open. Neck: No cervical spinal tenderness or deformity. Chest/axilla: Normal chest wall appearance and motion. Nontender with no deformity. No lesions are appreciated. Cardiovascular: Regular rate and rhythm. No pulse deficits. Respiratory: No increased work of breathing, no retractions or nasal flaring. Abdomen/GI: soft, non-tender Back: No spinal tenderness. No costovertebral tenderness. Full range of motion. Skin: Warm, dry MS/ Extremity: Pulses equal, no cyanosis. Neuro: Awake and alert, GCS 15, oriented to person, place, time, and situation. Cranial nerves II-XII grossly intact. Motor strength 5/5 in all extremities. Sensory grossly intact. rn
[2020-09-13 03:53] VITALS: TEMP 98.6
[2020-09-13 03:54] VITALS: BP 138/60; O2SAT 99
[2020-09-13] MEDS ORDERED: TETANUS & DIPHTHERIA TOX,ADULT 0.5 ML VIAL ONE (03:58)
--- NOTE | 2020-09-13 12:02 | RAD REPORT ---
EXAM DESCRIPTION: CT MAXILLOFACIAL WITHOUT IV CONTRAST CLINICAL HISTORY: FACIAL PAIN COMPARISON: None. TECHNIQUE: CT MAXILLOFACIAL WITHOUT IV CONTRAST, CT Head and Cervical spine WO contrast on 09/13/2020 1:41 AM CDT This exam was performed according to our departmental dose-optimization program, which includes autom ated exposure control, adjustment of the mA and/or kV according to patient size and/or use of iterati ve reconstruction technique. FINDINGS: Brain: There is no acute hemorrhage, mass effect or midline shift. Benson-white differentiat ion is preserved. There is no hydrocephalus. There is no significant volume loss for age. There is ex tensive mostly right infraorbital soft tissue swelling with a periorbital component. The calvarium is intact. Orbits and globes are unremarkable. The paranasal sinuses are clear. Mastoid air cells are clear. Cervical Spine: There is no acute fracture. Alignment is anatomic. Disc spaces are maintained. Vertebral body heights are preserved. Soft tissues are unremarkable. IMPRESSION: Right periorbital and infraorbital soft tissue swelling with no definite acute fracture. No acute intracranial findings. No evidence of cervical spine fracture. Electronically signed by: James Crawford MD 09/13/2020 3:20 AM CDT Due to temporary technical issues with the PACS/Fluency reporting system, reports are being signed by the in house radiologist without review as a courtesy to ensure prompt reporting. The interpreting r adiologist is fully responsible for the content of the report.
--- NOTE | 2020-09-13 12:14 | RAD REPORT ---
EXAM DESCRIPTION: CT Head and Cervical spine WO contrast CLINICAL HISTORY: FACIAL PAIN COMPARISON: None. TECHNIQUE: CT MAXILLOFACIAL WITHOUT IV CONTRAST, CT Head and Cervical spine WO contrast on 09/13/2020 1:41 AM CDT This exam was performed according to our departmental dose-optimization program, which includes autom ated exposure control, adjustment of the mA and/or kV according to patient size and/or use of iterati ve reconstruction technique. FINDINGS: Brain: There is no acute hemorrhage, mass effect or midline shift. Benson-white differentiat ion is preserved. There is no hydrocephalus. There is no significant volume loss for age. There is ex tensive mostly right infraorbital soft tissue swelling with a periorbital component. The calvarium is intact. Orbits and globes are unremarkable. The paranasal sinuses are clear. Mastoid air cells are clear. Cervical Spine: There is no acute fracture. Alignment is anatomic. Disc spaces are maintained. Vertebral body heights are preserved. Soft tissues are unremarkable. IMPRESSION: Right periorbital and infraorbital soft tissue swelling with no definite acute fracture. No acute intracranial findings. No evidence of cervical spine fracture. Electronically signed by: James Crawford MD 09/13/2020 3:20 AM CDT Due to temporary technical issues with the PACS/Fluency reporting system, reports are being signed by the in house radiologist without review as a courtesy to ensure prompt reporting. The interpreting r adiologist is fully responsible for the content of the report.
== END 2020-09-13 03:47 | disposition home or self-care (01) ==
LOC: ER 01:28
PROC: 0CQ0XZZ Repair Upper Lip, External Approach (ICD-10-PCS; principal; 2020-09-13)
DX: S01.511A Laceration without foreign body of lip, initial encounter (principal); S01.512A Laceration without foreign body of oral cavity, initial encounter; W18.30XA Fall on same level, unspecified, initial encounter; Y93.01 Activity, walking, marching and hiking; Z23 Encounter for immunization
CPT/HCPCS: 70450; 70486; 72125; 76377; 90471; 90714; 99284

== ENCOUNTER 2021-10-21 20:07 | Emergency (ER) | payer OTHER ==
--- OUTSIDE RECORDS SUMMARY | 2021-10-21 20:12 | XMS REPORT | Continuity of Care Document ---
:1965 Author Organization [facility] t Address [address] [place] [address] Care Team Providers Name Role Phone Shelbi MIMS, [facility] Primary Care Physician [phone] Sapna Garsia Attending Clinician Unavailable TOÑITO ROJAS Attending Clinician Unavailable Gerson WELSH, Dirk Attending Clinician Yoel Aly MD Attending Clinician TOÑITO ROJAS Admitting Clinician Unavailable Payers Payer Name Policy Type Policy Number Effective Date Expiration Date Rhianna HEATON HOLLISTER [id number] Problems Condition Condition Condition Status Onset Resolution Last Treating Co mments Source Name Details Category Date Date Treatment Clinician Date No known No known Disease Unive rs active active ity of problems problems [facility] Allergies, Adverse Reactions, Alerts Allergy Allergy Status Severity Reaction(s) Onset Inactive Treating Comm ents Source Name Type Date Date Clinician NO KNOWN Allergy Active [facility] Social History Social Habit Start Date Stop Date Quantity Comments Source History [facility] Alcohol Std Drinks of Med icine History [facility] Alcohol Binge of Medicine Tobacco use and 2020-08-15 2020-08-15 Never used [facility] exposure 00:00:00 00:00:00 of Medicine Alcohol intake 2020-08-15 2020-08-15 Lifetime [facility] Col lege 00:00:00 00:00:00 non-drinker of Medicine (finding) History SDOH 2020-08-15 2020-08-15 1 [facility] ge Alcohol Frequency 00:00:00 00:00:00 of Medi cine [birth year] [facility] 00:00:00 00:00:00 of Medicine Smoking Status Start Date Stop Date Source Never smoker [facility] o f Medicine Unknown if ever smoked [facility] Medications Ordered Filled Start Stop Current Ordering Indication Dosage Frequency Signature Comments Components Source Medication Medication Date Date Medication? Clinician (SIG) Name Name Dose No Unknown 7-21 00:00: 00 Dose 2021-0 No Unknown 7-21 00:00: 00 Dose 2021-0 No Unknown 7-21 00:00: 00 lisinopril 2021-0 No 1mg 2.5 mg 5-02 tablet 00:00: 00 Dose 2021-0 No Unknown 5-02 00:00: 00 Dose 2-0 No Unknown 5-02 00:00: 00 Dose 2-0 No Unknown 5-02 00:00: 00 Dose 2-0 No Unknown 5-02 00:00: 00 Dose 2-0 No Unknown 5-02 00:00: 00 Dose 2-0 No Unknown 5-02 00:00: 00 Dose 2022-0 No Unknown 4-17 00:00: 00 Dose 2022-0 No Unknown 4-17 00:00: 00 Dose 2-0 No Unknown 4-17 00:00: 00 Dose 2022-0 No Unknown 4-17 00:00: 00 Dose 2-0 No Unknown 4-17 00:00: 00 Dose 2-0 No Unknown 4-17 00:00: 00 Dose 2-0 No Unknown 3-11 00:00: 00 Dose 2-0 No Unknown 3-11 00:00: 00 Dose 2-0 No Unknown 3-05 00:00: 00 Dose 2022-0 No Unknown 3-05 00:00: 00 Dose 2-0 No Unknown 3-05 00:00: 00 Dose 2-0 No Unknown 3-05 00:00: 00 Dose 2022-0 No Unknown 3-05 00:00: 00 Dose 2022-0 No Unknown 3-04 00:00: 00 Dose 2022-0 No Unknown 3-04 00:00: 00 Dose 2022-0 No Unknown 3-04 00:00: 00 Dose 2022-0 No Unknown 3-04 00:00: 00 Dose 2022-0 No Unknown 3-04 00:00: 00 Dose 2022-0 No Unknown 3-04 00:00: 00 Dose 2022-0 No Unknown 3-03 00:00: 00 Dose 2022-0 No Unknown 3-03 00:00: 00 Dose 2022-0 No Unknown 3-03 00:00: 00 Dose 2022-0 No Unknown 3-03 00:00: 00 Dose 2022-0 No Unknown 3-03 00:00: 00 Dose 2022-0 No Unknown 3-03 00:00: 00 Dose 2022-0 No Unknown 3-03 00:00: 00 Dose 2022-0 No Unknown 3-03 00:00: 00 Dose 2022-0 No Unknown 3-03 00:00: 00 Dose 2022-0 No Unknown 3-03 00:00: 00 Dose 2022-0 No Unknown 3-03 00:00: 00 Dose 2022-0 No Unknown 3-03 00:00: 00 Dose 2022-0 No Unknown 3-03 00:00: 00 Dose 2022-0 No Unknown 3-03 00:00: 00 Dose 2022-0 No Unknown 3-03 00:00: 00 Dose 2022-0 No Unknown 3-03 00:00: 00 Dose 2022-0 No Unknown 3-03 00:00: 00 Dose 2022-0 No Unknown 3-03 00:00: 00 Dose 2022-0 No Unknown 3-03 00:00: 00 Dose 2022-0 No Unknown 3-03 00:00: 00 Dose 2022-0 No Unknown 3-03 00:00: 00 Dose 2022-0 No Unknown 3-03 00:00: 00 Dose 2022-0 No Unknown 3-03 00:00: 00 Dose 2022-0 No Unknown 3-03 00:00: 00 Dose 2022-0 No Unknown 3-03 00:00: 00 Dose 2022-0 No Unknown 3-03 00:00: 00 Dose 2022-0 No Unknown 3-03 00:00: 00 Dose 2022-0 No Unknown 3-03 00:00: 00 Dose 2022-0 No Unknown 3-03 00:00: 00 Dose 2022-0 No Unknown 3-03 00:00: 00 Dose 2022-0 No Unknown 3-03 00:00: 00 Dose 2022-0 No Unknown 3-03 00:00: 00 Dose 2022-0 No Unknown 3-03 00:00: 00 Dose 2022-0 No Unknown 3-03 00:00: 00 Dose 2022-0 No Unknown 3-03 00:00: 00 Dose 2022-0 No Unknown 3-03 00:00: 00 Dose 2022-0 No Unknown 3-03 00:00: 00 Dose 2022-0 No Unknown 3-03 00:00: 00 Dose 2022-0 No Unknown 3-03 00:00: 00 Dose 2022-0 No Unknown 3-03 00:00: 00 Dose 2022-0 No Unknown 3-03 00:00: 00 Dose 2022-0 No Unknown 3-03 00:00: 00 Dose 2022-0 No Unknown 3-03 00:00: 00 Dose 2022-0 No Unknown 3-03 00:00: 00 Dose 2022-0 No Unknown 3-03 00:00: 00 Dose 2022-0 No Unknown 2-28 00:00: 00 Dose 2022-0 No Unknown 2-28 00:00: 00 Dose 2022-0 No Unknown 2-28 00:00: 00 Dose 2022-0 No Unknown 2-28 00:00: 00 Dose 2022-0 No Unknown 2-28 00:00: 00 Dose 2022-0 No Unknown 2-28 00:00: 00 Dose 2022-0 No Unknown 2-28 00:00: 00 Dose 2022-0 No Unknown 2-28 00:00: 00 Dose 2022-0 No Unknown 2-28 00:00: 00 Dose 2022-0 No Unknown 2-28 00:00: 00 Dose 2022-0 No Unknown 2-28 00:00: 00 Dose 2022-0 No Unknown 2-28 00:00: 00 Dose 2022-0 No Unknown 2-28 00:00: 00 Dose 2022-0 No Unknown 2-28 00:00: 00 Dose 2021-0 No Unknown 2-28 00:00: 00 Dose 2021-0 No Unknown 2-28 00:00: 00 Dose 2021-0 No Unknown 2-25 00:00: 00 Dose 2021-0 No Unknown 2-25 00:00: 00 Dose 2021-0 No Unknown 2-25 00:00: 00 Dose 2021-0 No Unknown 2-25 00:00: 00 Dose 2021-0 No Unknown 2-25 00:00: 00 Dose 2021-0 No Unknown 2-25 00:00: 00 Dose 2021-0 No Unknown 2-25 00:00: 00 Dose 2021-0 No Unknown 2-25 00:00: 00 Dose 2021-0 No Unknown 2-24 00:00: 00 Dose 2021-0 No Unknown 2-24 00:00: 00 Dose 2021-0 No Unknown 2-24 00:00: 00 Dose 2021-0 No Unknown 2-24 00:00: 00 Dose 2021-0 No Unknown 2-17 00:00: 00 Dose 2020- No Unknown 1-02 00:00: 00 Dose 2020-0 No Unknown 7- 00:00: 00 Dose 2020-0 No Unknown 7-26 00:00: 00 atorvastati Yes 80mg Take 80 mg Leopoldo n (LIPITOR) 6-03 by mouth Alex ege 80 MG 14:22: daily. of tablet 36 Medicin e oxybutynin Yes 5mg Take 5 mg Ba ylor (DITROPAN) 6-03 by mouth 3 Col lege 5 MG tablet 14:22: times of 36 daily. Medicin e sertraline Yes 50mg Take 50 mg B aylor (ZOLOFT) 50 6-03 by mouth Alex ege MG tablet 14:22: daily. of 36 Medicin e Dose 2019-03 No Unknown 2- 00:00: 00 Dose 2019-03 No Unknown - 00:00: 00 Dose 2018-03 No Unknown - 00:00: 00 Dose 2018-03 No Unknown - 00:00: 00 aspirin 2018- Yes 324mg 324 mg, Univer s chewable 11-17 Oral, ity of tablet 324 14:00: DAILY, [place] mg 00 First dose Medical on [place] [facility] 11/17/18 at 0900, Until Discontinu ed, Routine iohexol 2018- No 120mL 120 mL, Unive rs (OMNIPAQUE 11-17 Intravenou it y of 350 06:45: 06:45 s, ONCE, 1 [place] BULK-150 00 :00 dose, [facility] Medica l mL) 11/17/18 at Branch injection 0145, 120 mL Routine ondansetron 2018- No 4mg 4 mg, Slow Univers (ZOFRAN 11-17 IV Push, ity of (PF)) 05:15: 04:15 ONCE, 1 [place] injection 4 00 :00 dose, [place] Med ical mg 11/17/18 at Branch 0015, HUNTER morpHINE 2018- No 4mg 4 mg, Slow Un amish injection 4 11-17 IV Push, ity of mg 05:15: 04:15 ONCE, 1 [place] 00 :00 dose, [place] [facility] 11/17/18 at Branch 0015, STAT nitroglycer Yes .4mg 0.4 mg, Uni vers in 11-17 Sublingual ity of (NITROSTAT) 04:02: , Q5MIN Sal as sublingual 51 PRN, 3 Medical tablet 0.4 doses, Branch mg Starting 11/16/18 at 2302, Until Discontinu ed, HUNTER, Chest pain traMADol Yes [id number] 50mg Take 1 Uni vers (ULTRAM) 50 11-17 tablet by ity of mg tablet 00:00: mouth [place] 00 every 6 Medical (six) Branch hours as needed for Pain (scale 7-10). oxybutynin 2014-03 No 1mg chloride 5 2-08 mg tablet 00:00: 00 cetirizine 2014-03 No 1mg 10 mg 0-23 tablet 00:00: 00 Celexa 20 2014-03 No 1mg mg tablet 0 00:00: 00 Imitrex 25 2014-03 No 1mg mg tablet 00:00: 00 lisinopril 2014-03 No 1mg 20 0-23 mg-hydrochl 00:00: orothiazide 00 12.5 mg tablet Cipro 500 2014-03 No 1mg mg tablet 00:00: 00 Flagyl 500 2014-03 No 1mg mg tablet 0-23 00:00: 00 Vistaril 25 2014-03 No 12mg mg capsule 023 00:00: 00 Immunizations Ordered Immunization Filled Immunization Date Status Commen ts Source Name Name Kamlesh DODSON 2020-07-16 Completed Vaccine 00:00:00 Kamlesh DODSON 2020-06-18 Completed Vaccine 00:00:00 Influenza, seasonal, 2019-02-28 Completed inj 00:00:00 Vital Signs Vital Name Observation Time Observation Value Comments Source HEIGHT 2020-05-09 01:30:00 157.5 cm WEIGHT 2020-05-09 01:30:00 77.1 kg Systolic blood 2020-08-15 19:17:00 133 mm[Hg] [facility] Medicine Diastolic blood 2020-08-15 19:17:00 84 mm[Hg] [facility] Medicine Heart rate 2020-08-15 19:17:00 66 /min [facility] of Medicine Body height 2020-08-15 19:17:00 157.5 cm [facility] Body weight 2020-08-15 19:17:00 83.915 kg [facility] BMI 2020-08-15 19:17:00 33.84 kg/m2 [facility] Systolic blood 2020-08-15 19:17:00 133 mm[Hg] [facility] Medicine Diastolic blood 2020-08-15 19:17:00 84 mm[Hg] [facility] Medicine Heart rate 2020-08-15 19:17:00 66 /min [facility] ollege of Medicine Body height 2020-08-15 19:17:00 157.5 cm [facility] Medicine Body weight 2020-08-15 19:17:00 83.915 kg [facility] BMI 2020-08-15 19:17:00 33.84 kg/m2 [facility] HEIGHT 2020-05-09 01:30:00 157.5 cm WEIGHT 2020-05-09 01:30:00 77.1 kg Systolic blood 2018-11-17 08:00:00 128 mm[Hg] [facility] Diastolic blood 2018-11-17 08:00:00 79 mm[Hg] Unive rsity of pressure [place] [facility] Heart rate 2018-11-17 08:00:00 67 /min [facility] [place] [facility] Respiratory rate 2018-11-17 08:00:00 16 /min Univ [facility] [place] [facility] Oxygen saturation in 2018-11-17 08:00:00 97 /min University of Arterial blood by [place] [facility]i tina Pulse oximetry Branch Body temperature 2018-11-17 03:03:00 37.17 Amanda [facility] [place] [facility] Body weight 2018-11-17 03:00:00 88.451 kg [facility] [place] [facility] Systolic blood 2018-11-17 08:00:00 128 mm[Hg] Univer sity of pressure [place] [facility] Diastolic blood 2018-11-17 08:00:00 79 mm[Hg] Unive rsity of pressure [place] [facility] Heart rate 2018-11-17 08:00:00 67 /min [facility] [place] [facility] Respiratory rate 2018-11-17 08:00:00 16 /min Univ [facility] [place] [facility] Oxygen saturation in 2018-11-17 08:00:00 97 /min University of Arterial blood by [place] Medi tina Pulse oximetry Branch Body temperature 2018-11-17 03:03:00 37.17 Amanda [facility] [place] [facility] Body weight 2018-11-17 03:00:00 88.451 kg [facility] [place] [facility] BP Systolic 2021-10-02 15:01:00 144 mm[Hg] BP Diastolic 2021-10-02 15:01:00 88 mm[Hg] Weight Measured 2021-10-02 15:01:00 193.80 pounds Height Measured 2021-10-02 15:01:00 61.81 inches Body Temperature 2021-10-02 15:01:00 97.80 degrees Heart Rate 2021-10-02 15:01:00 62.00 /min Respiratory Rate 2021-10-02 15:01:00 16.00 /min BP Systolic 2021-07-14 16:51:00 122 mm[Hg] BP Diastolic 2021-07-14 16:51:00 82 mm[Hg] Weight Measured 2021-07-14 16:51:00 188.20 pounds Height Measured 2021-07-14 16:51:00 61.81 inches Body Temperature 2021-07-14 16:51:00 98.20 degrees Heart Rate 2021-07-14 16:51:00 66.00 /min Respiratory Rate 2021-07-14 16:51:00 BP Systolic 2021-05-15 11:45:00 131 mm[Hg] BP Diastolic 2021-05-15 11:45:00 87 mm[Hg] Weight Measured 2021-05-15 11:45:00 181.80 pounds Height Measured 2021-05-15 11:45:00 61.81 inches Body Temperature 2021-05-15 11:45:00 98.40 degrees Heart Rate 2021-05-15 11:45:00 65.00 /min Respiratory Rate 2021-05-15 11:45:00 BP Systolic 2021-05-10 11:25:00 BP Diastolic 2021-05-10 11:25:00 Weight Measured 2021-05-10 11:25:00 Height Measured 2021-05-10 11:25:00 Body Temperature 2021-05-10 11:25:00 Heart Rate 2021-05-10 11:25:00 Respiratory Rate 2021-05-10 11:25:00 BP Systolic 2019-09-12 08:32:00 129 mm[Hg] BP Diastolic 2019-09-12 08:32:00 84 mm[Hg] Weight Measured 2019-09-12 08:32:00 199.00 pounds Height Measured 2019-09-12 08:32:00 61.81 inches Body Temperature 2019-09-12 08:32:00 98.40 degrees Heart Rate 2019-09-12 08:32:00 80.00 /min Respiratory Rate 2019-09-12 08:32:00 18.00 /min BP Systolic 2019-09-07 14:21:00 124 mm[Hg] BP Diastolic 2019-09-07 14:21:00 84 mm[Hg] Weight Measured 2019-09-07 14:21:00 199.20 pounds Height Measured 2019-09-07 14:21:00 61.81 inches Body Temperature 2019-09-07 14:21:00 97.90 degrees Heart Rate 2019-09-07 14:21:00 88.00 /min Respiratory Rate 2019-09-07 14:21:00 17.00 /min BP Systolic 2019-01-19 17:02:00 129 mm[Hg] BP Diastolic 2019-01-19 17:02:00 80 mm[Hg] Weight Measured 2019-01-19 17:02:00 192.20 pounds Height Measured 2019-01-19 17:02:00 61.81 inches Body Temperature 2019-01-19 17:02:00 99.80 degrees Heart Rate 2019-01-19 17:02:00 95.00 /min Respiratory Rate 2019-01-19 17:02:00 BP Systolic 2016-12-22 16:04:00 148 mm[Hg] BP Diastolic 2016-12-22 16:04:00 92 mm[Hg] Weight Measured 2016-12-22 16:04:00 196.20 pounds Height Measured 2016-12-22 16:04:00 61.81 inches Body Temperature 2016-12-22 16:04:00 97.89 degrees Heart Rate 2016-12-22 16:04:00 57.00 /min Respiratory Rate 2016-12-22 16:04:00 16.00 /min BP Systolic 2015-04-23 09:24:00 114 mm[Hg] BP Diastolic 2015-04-23 09:24:00 77 mm[Hg] Weight Measured 2015-04-23 09:24:00 186.60 pounds Height Measured 2015-04-23 09:24:00 61.81 inches Body Temperature 2015-04-23 09:24:00 97.80 degrees Heart Rate 2015-04-23 09:24:00 52.00 /min Respiratory Rate 2015-04-23 09:24:00 16.00 /min BP Systolic 2015-04-23 09:10:00 114 mm[Hg] BP Diastolic 2015-04-23 09:10:00 77 mm[Hg] Weight Measured 2015-04-23 09:10:00 186.60 pounds Height Measured 2015-04-23 09:10:00 61.81 inches Body Temperature 2015-04-23 09:10:00 97.80 degrees Heart Rate 2015-04-23 09:10:00 52.00 /min Respiratory Rate 2015-04-23 09:10:00 16.00 /min Procedures Procedure Date / Time Performing Clinician Source Performed TROPONIN I 2018-11-17 07:30:00 Yoel Aly [facility] CT ANGIOGRAM CHEST 2018-11-17 06:33:[address] [facility] LIPASE 2018-11-17 03:20:00 Yoel Aly [facility] TROPONIN I 2018-11-17 03:20:00 Yoel Aly [facility] COMP. METABOLIC PANEL 2018-11-17 03:20:00 Yoel Aly [facility] ([id number]) [facility] CBC WITH DIFFERENTIAL 2018-11-17 03:20:00 Yoel Aly [facility] PROTHROMBIN TIME / INR 2018-11-17 03:20:00 Yoel Aly [facility] D-DIMER 2018-11-17 03:20:00 Yoel Aly [facility] ACTIVATED PARTIAL 2018-11-17 03:20:00 Yoel Aly [facility] XR CHEST 1 VW 2018-11-17 03:17:03 Yoel Aly [facility] EKG-12 LEAD 2018-11-17 03:04:13 Yoel Aly [facility] NOTICE OF PRIVACY 2018-11-17 02:50:26 Doctor Unassigned, No [facility] PRACTICES Name [facility] CONSENT/REFUSAL FOR 2018-11-17 02:50:07 Doctor Unassigned, No [facility] DIAGNOSIS AND TREATMENT Name [facility] Plan of Care Planned Activity Planned Date Details Comments Source Future Scheduled 2020-08-15 Screening for malignant [facility] of Test 14:22:37 neoplasm of colon Medicine (procedure) [code = 955725437] Future Scheduled 2020-08-15 Screening for malignant [facility] of Test 14:22:37 neoplasm of breast Medicine (procedure) [code = 941975584] Future Scheduled 2020-08-15 COVID-19 Vaccine (1) [facility] 14:22:37 [code = COVID-19 Vaccine Med icine (1)] Future Scheduled 2020-08-15 TETANUS SHOT (ADULT) [employer] [facility] Test 14:22:37 [code = TETANUS SHOT Medicin e (ADULT)] Future Scheduled 2020-08-15 Hepatitis C screening Ba [facility] 14:22:37 (procedure) [code = Medicine 323497506] Future Scheduled 2020-08-15 Human immunodeficiency B [facility] 14:22:37 virus screening Medicine (procedure) [code = 925252010] Future Scheduled 2020-08-15 Screening for malignant [facility] 14:22:37 neoplasm of cervix Medicine (procedure) [code = 783326027] Future Scheduled 2020-08-15 ZOSTER VACCINE (1 of 2) [facility] 14:22:37 [code = ZOSTER VACCINE (1 Me dicine of 2)] Future Scheduled 2020-08-15 FLU VACCINE > 6 MONTHS B [facility] 14:22:37 [code = FLU VACCINE > 6 Medi cine MONTHS] Goal Plan of Care Note [code = 38105-6] Goal Plan of Care Note [code = 89145-3] Goal Plan of Care Note [code = 32822-6] Goal Plan of Care Note [code = 24273-9] Goal Plan of Care Note [code = 08613-7] Goal Plan of Care Note [code = 70598-3] Goal Plan of Care Note [code = 90164-3] Goal Plan of Care Note [code = 21329-6] Goal Plan of Care Note [code = 29908-8] Goal Plan of Care Note [code = 86613-2] Goal Plan of Care Note [code = 44231-6] Goal Plan of Care Note [code = 82353-3] Goal Plan of Care Note [code = 23585-9] Goal Plan of Care Note [code = 58905-6] Goal Plan of Care Note [code = 07214-2] Goal Plan of Care Note [code = 57202-2] Goal Plan of Care Note [code = 68844-5] Goal Plan of Care Note [code = 82631-9] Goal Plan of Care Note [code = 00492-2] Goal Plan of Care Note [code = 98348-1] Goal Plan of Care Note [code = 23813-3] Goal Plan of Care Note [code = 55990-1] Goal Plan of Care Note [code = 63728-1] Goal Plan of Care Note [code = 62700-4] Goal Plan of Care Note [code = 89572-3] Goal Plan of Care Note [code = 13986-7] Goal Plan of Care Note [code = 12900-6] Goal Plan of Care Note [code = 12745-1] Goal Plan of Care Note [code = 62998-2] Goal Plan of Care Note [code = 27747-1] Goal Plan of Care Note [code = 40781-1] Goal Plan of Care Note [code = 44000-5] Goal Plan of Care Note [code = 25995-9] Goal Plan of Care Note [code = 29107-7] Goal Plan of Care Note [code = 01867-9] Goal Plan of Care Note [code = 63893-6] Goal Plan of Care Note [code = 87191-8] Goal Plan of Care Note [code = 69391-4] Goal Plan of Care Note [code = 36185-7] Goal Plan of Care Note [code = 46174-3] Goal Plan of Care Note [code = 09987-8] Goal Plan of Care Note [code = 03915-6] Goal Plan of Care Note [code = 96574-0] Encounters Start End Encounter Admission Attending Care Care Encounter Source Date/Time Date/Time Type Type Clinicians Facility Department ID 2021-04-09 Outpatient Sapna Garsia STLMLC STLC [id number] Common 14:15:50 [id number] [facility] 2020-05-09 Inpatient ER BERSHAD, [facility] Neuro ICU [id number] [facility] 01:24:00 TOÑITO 2021-10-02 2021-10-02 Outpatient [id number] 00:00:00 00:00:00 Visit [id number] 2021-07-15 2021-07-15 ambulatory STLMLC STLMLC [id number] Common 00:00:00 00:00:00 [facility] 2021-01-31 2021-01-31 ambulatory STLMLC STLMLC [id number] Common 00:00:00 00:00:00 [facility] 2020-08-152020-08-15 Office SHADY Nieto [id number] 14:09:38 15:10:23 Visit Dirk AMBULATOR 350.1.13.21 Y [id number] [id number] 2020-08-15 2020-08-15 Office SHADY Nieto [id number] [place] [address] 14:09:38 15:10:23 Visit Dirk AMBULATOR 350.1.13.21 College Y 0.2.7.2.[id number] [facility] 800 e 2018-11-16 2018-11-17 Emergency [facility] [id number] 21:53:19 03:28:00 Yoel Lóen 350.1.13.10 [place] 4.2.7.2.686 [place] [id number] 2018-11-16 2018-11-17 [facility] [id number] [facility] 21:53:19 03:28:00 Yoel León 350.1.13.10 ity of [place] 4.2.7.2.686 [facility] [id number] [facility] 084 Branch Results Test Description Test Time Test Comments Results Result Comments Source CT/NG, NAAT, URINE 2021-05-22 21:07:45 Test Item Value Reference Range Interpretation Comme nts GONORRHEA, NAAT NEGATIVE NEGATIVE IMPORTA NT NOTICE: SEE ANNOUNCEMENT AT (test code = https://www.FrenchWeb/Anywhere to Go Note: 86500) Assay methodolo gy is nucleic acid amplification by transcriptio n mediated amplification (TMA) utilizing the A ptima Combo 2 Assay. CHLAMYDIA, NAAT NEGATIVE NEGATIVE IMPORTA NT NOTICE: SEE ANNOUNCEMENT AT (test code = https://www.FrenchWeb/PatreonrineKit Note: 95710) Assay methodolo gy is nucleic acid amplification by transcriptio n mediated amplification (TMA) utilizing the A ptima Combo 2 Assay. GC AND CHLAMYDIA, AMPLIFIED, [id number] 00:00:00 Test Item Value Reference Range Interpretation Comments GONORRHEA, NAAT (test code = 13532) NEGATIVE CHLAMYDIA, NAAT (test code = 15225) NEGATIVE HEPATITIS A [id number] 04:35:17 Test Item Value Reference Range Interpretation Comments HEPATITIS A IgM NON-REACTIVE NON-REACTIVE UNLESS OTHE RWISE (test code = 2728) INDICATED , ALL TESTING PERFORMED [facility], [facility]. [address] [place], [place] [id number] [place] [address] DIRECTOR: GRACIE MALDONADO M.D. CLIA NUMBER [id number] CAP ACCREDITATION N O. [id number] HEPATITIS PANEL, [id number] 04:35:17 Test Item Value Reference Interpretation Comments Range HEPATITIS A TOTAL REACTIVE NON-REACTIVE A AB (test code = 2725) HEPATITIS B SURF AG NON-REACTIVE NON-REACTIVE (test code = 2739) HEP B CORE TOTAL AB NON-REACTIVE NON-REACTIVE (test code = 2729) HEPATITIS B SURFACE NON-REACTIVE NON-REACTIVE AB (test code = 2737) HEPATITIS C NON-REACTIVE NON-REACTIVE ANTIBODY (test code = 4675) INTERPRETATION (NOTE) Hepatitis A serology HEPATITIS A: (test consisten t with past code = 2552) exposure or previousvaccina tion to hepatitis A vir us. No evidence of cur rent acutehepatitis A infection. INTERPRETATION (NOTE) Hepatitis B serology HEPATITIS B: (test shows no evidence of code = 74690) past exposure to orcurrent infec tion with hepatitis B vir us. No evidence of hep atitis Bimmunization i s identified. INTERPRETATION (NOTE) Hepatitis C serology HEPATITIS C: (test shows no evidence of code = 77245) exposure to he patitisC virus at this t [place]. It can take up to 12 months after exposure tothe hepatitis C vir us for antibodies to b ecome detectable in t he blood in certain luz marina ents. [id number] 03:57:26 Test Item Value Reference Range Interpretation Comments RPR RESULT (test code = NON-REACTIVE NON-REACTIVE 3501) RPR TITER (test code = 3500) NOT INDIC. TITER NOT INDIC. HEPATITIS PROFILE (A,B,C)2021-05-21 00:00:00 Test Item Value Reference Range Interpretation Comments HEPATITIS A TOTAL AB (test code REACTIVE = 2725) HEPATITIS B SURF AG (test code = NON-REACTIVE 2738) HEP B CORE TOTAL AB (test code = NON-REACTIVE 9) HEPATITIS B SURFACE AB (test NON-REACTIVE code = 7) HEPATITIS C ANTIBODY (test code NON-REACTIVE = 4675) INTERPRETATION HEPATITIS A: (NOTE) (test code = 2552) INTERPRETATION HEPATITIS B: (NOTE) (test code = 96609) INTERPRETATION HEPATITIS C: (NOTE) (test code = 10595) [id number] 00:00:00 Test Item Value Reference Range Interpretation Comments RPR RESULT (test code = NON-REACTIVE 3501) RPR TITER (test code = 3500) NOT INDIC. TITER [id number] 00:00:00 Test Item Value Reference Range Interpretation Comments RPR RESULT (test code = NON-REACTIVE 3501) RPR TITER (test code = 3500) NOT INDIC. TITER HEPATITIS A IgM [REFLEX]2021-05-21 00:00:00 Test Item Value Reference Range Interpretation Comments HEPATITIS A IgM (test code = NON-REACTIVE 2727) TSH, THIRD [id number] 06:12:25 Test Item Value Reference Range Interpretation Comments TSH, THIRD 1.950 UIU/ML 0.400-4.100 UNLESS OTHERWI SE GENERATION (test INDICATED, ALL TESTING code = 2821) PER[facility], [id number] [place] [address] DIRECTOR: GRACIE MALDONADO M.D. CLIA NUMBER [id number] CAP ACCREDITATION N O. [id number] LIPID [id number] 04:41:19 Test Item Value Reference Range Interpretation Comments CHOLESTEROL (test 137 MG/DL <200 code = 2210) TRIGLYCERIDES (test 138 MG/DL <150 code = 2232) HDL CHOLESTEROL (test 45 MG/DL >39 code = 2220) CALC LDL CHOL (test 70 MG/DL <100 NOTE: C ALCULATED LDL code = 2237) IS BASED ON JLUIO C-POLK METHOD WHICHINCLUDES ADJUSTABLE TRIGLYCERIDE:VL DL CHOLESTEROL RAT IO.THIS FACTOR VARIES B Y MEASURED TRIGLY CERIDE AND NON-HDLCHOL ESTEROL CONCENTRATIONS WITH INCREASED CALCU LATED LDL SEENIN HIGH ER TRIGLYCERIDE OR LOWER NON-HDL SPECIME NS. FOR MOREINFORMATION , SEE CLIENT ANNOUNCE MENT AT [email or web address] /[email or web address] RISK RATIO LDL/HDL 1.56 RATIO <3.22 (test code = 223) COMPREHENSIVE METABOLIC [id number] 04:41:19 Test Item Value Reference Range Interpretation Comments GLUCOSE (test code = 93 MG/DL 70-99 2216) BUN (test code = 14 MG/DL 6-20 2207) CREATININE (test 0.75 MG/DL 0.60-1.30 code = 221) eGFR (2020 CKD-EPI) 93 ML/MIN/1.73 >60 (test code = 35436) CALC BUN/CREAT (test 19 RATIO 6-28 code = 2235) SODIUM (test code = 146 MEQ/L 113-586 2641) POTASSIUM (test code 4.8 MEQ/L 3.5-5.4 = 2227) CHLORIDE (test code 109 MEQ/L 95-107 H = 2214) CARBON DIOXIDE (test 25 MEQ/L 19-31 code = 220) CALCIUM (test code = 8.8 MG/DL 8.5-10.5 2208) PROTEIN, TOTAL (test 7.1 G/DL 6.1-8.3 code = 222) ALBUMIN (test code = 4.3 G/DL 3.5-5.2 2200) CALC GLOBULIN (test 2.8 G/DL 1.9-3.7 code = 2240) CALC A/G RATIO (test 1.5 RATIO 1.0-2.6 code = 2234) BILIRUBIN, TOTAL 0.3 MG/DL See_Comment [Automated message] (test code = 2206) The syste m which generated this result transmit janell reference range : <=1.2. The refe rence range was not u sed to interpret th is result as normal/abnormal . ALKALINE PHOSPHATASE 100 U/L 40-136 (test code = 2204) AST (test code = 23 U/L 9-40 2217) ALT (test code = 20 U/L 5-40 2218) HEMOGLOBIN [id number] 03:38:14 Test Item Value Reference Range Interpretation Comments HEMOGLOBIN A1c (test code = 85603) 5.5 % 4.2-5.6 CBC W/AUTO DIFF WITH [id number] 03:30:57 Test Item Value Reference Range Interpretation Comments WBC (test code = 4.3 K/UL 3.5-11.0 1001) RBC (test code = 4.42 M/UL 3.80-5.40 1002) HEMOGLOBIN (test code 12.5 G/DL 11.5-15.5 = 1003) HEMATOCRIT (test code 37.0 % 34.0-45.0 = 1004) MCV (test code = 83.7 fL 80.0-99.0 1005) MCH (test code = 28.3 PG 25.0-33.0 1006) MCHC (test code = 33.8 G/DL 31.0-36.0 1007) RDW (test code = 13.5 % 11.5-15.0 1038) NEUTROPHILS (test 52.9 % code = 1008) LYMPHOCYTES (test 37.9 % code = 1010) MONOCYTES (test code 6.0 % = 1011) EOSINOPHILS (test 2.5 % code = 1012) BASOPHILS (test code 0.5 % = 1013) IMMATURE GRANULOCYTES 0.2 % (test code = 1036) NUCLEATED RBCS (test 0.0 /100 WBC'S See_Comment [Aut omated code = 1065) message] The sy stem which generated this result transmitted reference range : 0.0. The refere nce range was not u sed to interpret th is result as normal/abnormal . PLATELET COUNT (test 123 K/UL 130-400 L code = 1015) ABSOLUTE NEUTROPHILS 2.29 K/UL 1.50-7.50 (test code = 1066) ABSOLUTE LYMPHOCYTES 1.64 K/UL 1.00-4.00 (test code = 1067) ABSOLUTE MONOCYTES 0.26 K/UL 0.20-1.00 (test code = 1068) ABSOLUTE EOSINOPHILS 0.11 K/UL 0.00-0.50 (test code = 1040) ABSOLUTE BASOPHILS 0.02 K/UL 0.00-0.20 (test code = 1069) ABS IMMATURE 0.01 K/UL 0.00-0.10 GRANULOCYTES (test code = 1020) ABS NUCLEATED RBCS 0.00 K/UL 0.00-0.11 (test code = 69974) CBC W/AUTO [id number] 00:00:00 Test Item Value Reference Range Interpretation Comments WBC (test code = 1001) 4.3 K/UL RBC (test code = 1002) 4.42 M/UL HEMOGLOBIN (test code = 1003) 12.5 G/DL HEMATOCRIT (test code = 1004) 37.0 % MCV (test code = 1005) 83.7 fL MCH (test code = 1006) 28.3 PG MCHC (test code = 1007) 33.8 G/DL RDW (test code = 1038) 13.5 % NEUTROPHILS (test code = 1008) 52.9 % LYMPHOCYTES (test code = 1010) 37.9 % MONOCYTES (test code = 1011) 6.0 % EOSINOPHILS (test code = 1012) 2.5 % BASOPHILS (test code = 1013) 0.5 % IMMATURE GRANULOCYTES (test 0.2 % code = 1036) NUCLEATED RBCS (test code = 0.0 /100WBC'S 1065) PLATELET COUNT (test code = 123 K/UL 1015) ABSOLUTE NEUTROPHILS (test code 2.29 K/UL = 1066) ABSOLUTE LYMPHOCYTES (test code 1.64 K/UL = 1067) ABSOLUTE MONOCYTES (test code = 0.26 K/UL 1068) ABSOLUTE EOSINOPHILS (test code 0.11 K/UL = 1040) ABSOLUTE BASOPHILS (test code = 0.02 K/UL 1069) ABS IMMATURE GRANULOCYTES (test 0.01 K/UL code = 1020) ABS NUCLEATED RBCS (test code = 0.00 K/UL 62759) CBC W/AUTO [id number] 00:00:00 Test Item Value Reference Range Interpretation Comments WBC (test code = 1001) 4.3 K/UL RBC (test code = 1002) 4.42 M/UL HEMOGLOBIN (test code = 1003) 12.5 G/DL HEMATOCRIT (test code = 1004) 37.0 % MCV (test code = 1005) 83.7 fL MCH (test code = 1006) 28.3 PG MCHC (test code = 1007) 33.8 G/DL RDW (test code = 1038) 13.5 % NEUTROPHILS (test code = 1008) 52.9 % LYMPHOCYTES (test code = 1010) 37.9 % MONOCYTES (test code = 1011) 6.0 % EOSINOPHILS (test code = 1012) 2.5 % BASOPHILS (test code = 1013) 0.5 % IMMATURE GRANULOCYTES (test 0.2 % code = 1036) NUCLEATED RBCS (test code = 0.0 /100WBC'S 1065) PLATELET COUNT (test code = 123 K/UL 1015) ABSOLUTE NEUTROPHILS (test code 2.29 K/UL = 1066) ABSOLUTE LYMPHOCYTES (test code 1.64 K/UL = 1067) ABSOLUTE MONOCYTES (test code = 0.26 K/UL 1068) ABSOLUTE EOSINOPHILS (test code 0.11 K/UL = 1040) ABSOLUTE BASOPHILS (test code = 0.02 K/UL 1069) ABS IMMATURE GRANULOCYTES (test 0.01 K/UL code = 1020) ABS NUCLEATED RBCS (test code = 0.00 K/UL 65091) HEMOGLOBIN [id number] 00:00:00 Test Item Value Reference Range Interpretation Comments HEMOGLOBIN A1c (test code = 24249) 5.5 % HEMOGLOBIN [id number] 00:00:00 Test Item Value Reference Range Interpretation Comments HEMOGLOBIN A1c (test code = 75549) 5.5 % LIPID [id number] 00:00:00 Test Item Value Reference Range Interpretation Comments CHOLESTEROL (test code = 2210) 137 MG/DL TRIGLYCERIDES (test code = 2232) 138 MG/DL HDL CHOLESTEROL (test code = 2220) 45 MG/DL CALC LDL CHOL (test code = 2237) 70 MG/DL RISK RATIO LDL/HDL (test code = 1.56 RATIO 2238) COMPREHENSIVE METABOLIC [id number] 00:00:00 Test Item Value Reference Range Interpretation Comments GLUCOSE (test code = 2217) 93 MG/DL BUN (test code = 2208) 14 MG/DL CREATININE (test code = 2214) 0.75 MG/DL eGFR (2020 CKD-EPI) (test code 93 ML/MIN/1.73 = 51904) CALC BUN/CREAT (test code = 19 RATIO 2235) SODIUM (test code = 2231) 146 MEQ/L POTASSIUM (test code = 2228) 4.8 MEQ/L CHLORIDE (test code = 2215) 109 MEQ/L CARBON DIOXIDE (test code = 25 MEQ/L 2205) CALCIUM (test code = 2209) 8.8 MG/DL PROTEIN, TOTAL (test code = 7.1 G/DL 2228) ALBUMIN (test code = 2201) 4.3 G/DL CALC GLOBULIN (test code = 2.8 G/DL 2240) CALC A/G RATIO (test code = 1.5 RATIO 2234) BILIRUBIN, TOTAL (test code = 0.3 MG/DL 2207) ALKALINE PHOSPHATASE (test 100 U/L code = 2204) AST (test code = 2218) 23 U/L ALT (test code = 2219) 20 U/L [id number] 00:00:00 Test Item Value Reference Range Interpretation Comments TSH, THIRD GENERATION (test code 1.950 UIU/ML = 2821) [id number] 00:00:00 Test Item Value Reference Range Interpretation Comments TSH, THIRD GENERATION (test code 1.950 UIU/ML = 2821) SARS-CoV-2 (COVID-19), RT-[id number] 10:43:49 Test Item Value Reference Interpretation Comments Range SARS-CoV-2 POSITIVE SEE NOTE A SARS-CoV-2 RNA INTERPRETATION DETECTEDPosit keenan results (test code = 33296) are jus cative of the presence of DK S-CoV-2 RNA;clinical co rrelation with patient hi story and other diagnosticinfor mation is necessary to de termine patient infecti on status.Positive results do not rule out bacterial infection or co-infectionwit h other viruses. Positi ve and negative predic tive values oftestin g are highly dependen t on prevalence. SOURCE (test code = NOT SPECIFIED Note: [place] [address]) Sha James Custer l-Time RT-PCR. The exp ected result or refer ence range is NEGATIVE (No t Detected). For more information reg arding COVID-19 testin g to include clinicalinforma tion, methodology det ail, intended use, F DA authorization andrecommended fact sheets for luz marina ents or healthcare prov iders, see NewTest Announc ement: SARS-CoV-2 (COV ID-19) by NAAT at URL bel ow (note,fact shee ts are provided by met hod given in report:[email or web address] [email or web address] Alternatively, see downloadable PD F fact sheet at:[email or web address]://www. [email or web address].Dotted Block m/MYMPN-66-NB-P CR UNLESS OTHERWISE INDIC ATED, ALL TESTING PERFORM ED [facility], I [address] [place] [address] LABORATORY DIRE CTOR: Payam TURCIOS. CLIA NUMBER [id number] CAP ACCREDITATION N O. [id number] SARS-CoV-2 (COVID-19) by RT-PCR (HIGH RISK)2021-04-06 00:00:00 Test Item Value Reference Range Interpretation Comments SARS-CoV-2 INTERPRETATION (test POSITIVE code = 33568) SOURCE (test code = 75428) NOT SPECIFIED POCT-GLUCOSE [id number] 12:05:00 Test Item Value Reference Range Interpretation Comments POC-GLUCOSE METER 102 mg/dL 70-110 : TESTED A T [facility] 6720 (BEAKER) (test code = JARRELL Mcclain [facility], 1538) [address]: [employer] Practitioner/Techni cristopher ID = [id number] for Ar mstrong, Latesa MR, MRA, BRAIN, WITHOUT [id number] 11:02:00Reason for exam:->Ischemic Stroke EvaluationVI[facility]Name: [facility] : 1965 Sex: FFINAL REPORT MRA Head CLINICAL HISTORY: Stroke, follow upIschemic Stroke Evaluation TECHNIQUE: MRA of the head utilizing 3-D wigu-hw-auswlk technique, with 3-D reconstructions. COMPARISON: None FINDINGS: There is no evidence of intracranial aneurysm, focal stenosis, or major branch vessel occlusion. IMPRESSION: No evidence for a major lumbee of Soto proximal branch vessel occlusion. MRA Neck CLINICAL HISTORY: Stroke, follow upIschemic Stroke Evaluation TECHNIQUE: MRA of the neck utilizing 2-D and 3-D boea-ip-xxhhpn technique, with 3-D reconstructions. COMPARISON: None FINDINGS: The internal carotid arteries in the neck are patent including their bifurcations. There is antegrade flow in the vertebral arteries in the neck. IMPRESSION: No evidence of hemodynamically significant stenosisin the cervical carotid or vertebral arteries by NASCET criteria. Signed: Caryn Martinez Verified Date/Time: 05/10/2020 11:02:54 Reading Location: [address] Neuro Reading Room Electronicallysigned by: ACRYN MARTINEZ M.D. on 05/10/2020 11:02 AMMR, MRA, NECK, WITHOUT IV [id number] 11:02:00Reason for exam:->Ischemic Stroke EvaluationM[facility] : 1965 Sex: FFINAL REPORT MRA Head CLINICAL HISTORY: Stroke, follow upIschemic Stroke Evaluation TECHNIQUE: MRA of the head utilizing 3-D mvpj-ff-aeirox technique, with 3-D reconstructions. COMPARISON: None FINDINGS: There is no evidence of intracranial aneurysm, focal stenosis, or major branch vessel occlusion. IMPRESSION: No evidence for a major lumbee of Soto proximal branch vessel occlusion. MRA Neck CLINICAL HISTORY: Stroke, follow upIschemic Stroke Evaluation TECHNIQUE: MRA of the neck utilizing 2-D and 3-D wcwt-jv-skprsn technique, with 3-D reconstructions. COMPARISON: None FINDINGS: The internal carotid arteries in the neck are patent including their bifurcations. There is antegrade flow in the vertebral arteries in the neck. IMPRESSION: No evidence of hemodynamically significant stenosisin the cervical carotid or vertebral arteries by NASCET criteria. Signed: Caryn Martinez Verified Date/Time: 05/10/2020 11:02:54 Reading Location: [address] Neuro Reading Room Electronicallysigned by: CARYN MARTINEZ M.D. on 05/10/2020 11:02 AMMR, BRAIN, WITHOUT [id number] 11:00:00Reason for exam:->StrokeWhat is the patient's sedation requirement?->No Sedation [facility] : 1965 Sex: FFINAL REPORT MRI Brain without contrast Clinical History: Stroke, follow upStroke Technique: MRI of the brain utilizing axial T2, FLAIR, GRE, DWI; sagittal and coronal T1-weighted images. Comparisons: None Findings: There is no evidence of acute infarct or hemorrhage. There is mild periventricular and subcortical white matter T2 hyperintensity, which is nonspecific but compatible with chronic microvascular ischemic change. There is mild generalized sulcal prominence without hydrocephalus,midline shift, or apparent mass effect. There are no extra-axial fluid collections. The craniocervical junction is preserved. The major intracranial flow-voids appear patent. IMPRESSION: No evidence ofacute infarct, hemorrhage, or hydrocephalus. Signed: Caryn Martinez MDReport Verified Date/Time: 05/10/2020 11:00:30 Reading Location: [address] Neuro Reading Room POCT- GLUCOSE [id number] 07:45:00 Test Item Value Reference Range Interpretation Comments POC-GLUCOSE METER 100 mg/dL 70-110 : TESTED A T [facility] [address] (JESUS) (test code = [place], 1538 [address]: [employer] Practitioner/Techni cristopher ID = [id number] for Kennedy [id number] 04:15:00 Test Item Value Reference Range Interpretation Comments MAGNESIUM (BEAKER) 2.6 mg/dL 1.6-2.6 Specimen slightly (test code = 627) hemolyzed [employer] Practitioner ID - ILANA [id number] 04:15:00 Test Item Value Reference Range Interpretation Comments PHOSPHORUS (BEAKER) 4.0 mg/dL 2.3-4.7 Specimen slightly (test code = 604) hemolyzed [employer] Practitioner ID - ILANA LBASIC METABOLIC [id number] 04:15:00 Test Item Value Reference Range Interpretation [...] S NOT APPLICABLE FOR DIALYSIS PATIEN TS. [employer] Practitioner ID - ILANA LCBC W/PLT COUNT & AUTO [id number] 03:49:00 Test Item Value Reference Range Interpretation [...] PERCENT (BEAKER) (test code = 2801) POCT-GLUCOSE [id number] 00:11:00 Test Item Value Reference Range Interpretation Comments POC-GLUCOSE METER 89 mg/dL 70-110 : TESTED A T [facility] [address] (BEAKER) (test code = [place], 1538) [address]: [employer] Practitioner/Techni cristopher ID = [id number] for Mando Eve adams [id number] 23:08:00 Test Item Value Reference Range Interpretation [...] failure, acidosis, acute neurological disease, and persistent tachyarrhythmia.[employer] Practitioner ID - [id number] 22:59:00 Test Item Value Reference Range Interpretation Comments MAGNESIUM (BEAKER) 2.0 mg/dL 1.6-2.6 Specimen slightly (test code = 627) hemolyzed [employer] Practitioner ID - [id number] 22:59:00 Test Item Value Reference Range Interpretation Comments PHOSPHORUS (BEAKER) 3.6 mg/dL 2.3-4.7 Specimen slightly (test code = 604) hemolyzed [employer] Practitioner ID - EMERSONBASIC METABOLIC [id number] 22:59:00 Test Item Value Reference Range Interpretation [...] S NOT APPLICABLE FOR DIALYSIS PATIEN TS. [employer] Practitioner ID - EMERSONPOCT-GLUCOSE [id number] 17:42:00 Test Item Value Reference Range Interpretation Comments POC-GLUCOSE METER 151 mg/dL 70-110 H : TESTED A T [facility] 6720 (BEAKER) (test code = [facility], 1538) [address]: [employer] Practitioner/Techni cristopher ID = [id number] for Aaliyah Goncalves TROPONIN [id number] 17:10:00 Test Item Value Reference Range Interpretation [...] failure, acidosis, acute neurological disease, and persistent tachyarrhythmia.[employer] Practitioner ID - DBPOCT-GLUCOSE METER 2020-05-09 12:06:00 Test Item Value Reference Range Interpretation Comments POC-GLUCOSE METER 83 mg/dL 70-110 : TESTED A T [facility] 6720 (BEAKER) (test code = [facility], 1538) [address]: [employer] Practitioner/Techni cristopher ID = [id number] for ANJELICA STEVENA [id number] 11:37:00 Test Item Value Reference Range Interpretation Comments RPR SCREEN (BEAKER) (test code = Nonreactive Nonreactive 420) TROPONIN [id number] 09:27:00 Test Item Value Reference Range Interpretation [...] failure, acidosis, acute neurological disease, and persistent tachyarrhythmia.[employer] Practitioner ID - EMERSONHEMOGLOBIN A1C 2020-05-09 08:40:00 Test Item Value Reference Range Interpretation Comments HEMOGLOBIN A1C (BEAKER) (test code = 5.6 % 4.3-6.1 368) VITAMIN B12 AND [id number] 06:48:00 Test Item Value Reference Range Interpretation Comments VITAMIN B12 979 pg/mL 213-816 H (BEAKER) (test code = 774) FOLATE (BEAKER) 33.20 ng/mL See_Comment [Automated message] (test code = 362) The system which generated this result transmitted ref erence range: >=7.00. The reference range was not used to interpr et this result as normal/abnormal . [employer] Practitioner ID - ILANA LOperator ID - ILANA LTSH/FREE T4 IF [id number] 06:45:00 Test Item Value Reference Range Interpretation Comments THYROID STIMULATING HORMONE 1.084 uIU/mL 0.350-4.940 (BEAKER) (test code = 772) [employer] Practitioner ID - ILANA LPOCT-GLUCOSE [id number] 06:16:00 Test Item Value Reference Range Interpretation Comments POC-GLUCOSE METER 83 mg/dL 70-110 : TESTED A T [facility] [address] (BEAKER) (test code = [facility], 1538) [address]: [employer] Practitioner/Techni cristopher ID = [id number] for MEGAN RIVERA BASIC METABOLIC [id number] 03:39:00 Test Item Value Reference Range Interpretation [...] S NOT APPLICABLE FOR DIALYSIS PATIEN TS. [employer] Practitioner ID - ILANA LLIPID [id number] 03:39:00 Test Item Value Reference Range Interpretation Comments TRIGLYCERIDES (BEAKER) (test code = 90 mg/dL 540) CHOLESTEROL (BEAKER) (test code = 153 mg/dL 631) HDL CHOLESTEROL (BEAKER) (test code 44 mg/dL = 976) LDL CHOLESTEROL CALCULATED (BEAKER) 91 mg/dL (test code = 633) Triglyceride Reference Range: Low Risk <150 Borderline 150-199 High Risk 200- 499 Very High Risk >=500Cholesterol Reference Range: Low Risk <200 Borderline 200-239 High Risk >240HDL Cholesterol Reference Range: Low Risk >=60 High Risk <40LDL Cholesterol Reference Range: Optimal <100 Near Optimal 100-129 Borderline 130-159 High 160-189 Very High >=190 [employer] Practitioner ID - ILANA LCBC W/PLT COUNT & AUTO [id number] 03:25:00 Test Item Value Reference Range Interpretation [...] 0-1 PERCENT (BEAKER) (test code = 2801) SARS-CoV-2 (COVID-19) by RT-PCR (HIGH RISK)2020-03-01 00:00:00 Test Item Value Reference Range Interpretation Comments SARS-CoV-2 INTERPRETATION (test NEGATIVE code = 09552) SOURCE (test code = 80342) NOT SPECIFIED SARS-CoV-2 (COVID-19) by RT-PCR (HIGH RISK)2020-02-03 00:00:00 Test Item Value Reference Range Interpretation Comments SARS-CoV-2 INTERPRETATION Positive (test code = 67545) SOURCE (test code = 16302) NASOPHARYNGEAL_SWAB _IN_VTM__UTM CBC W/AUTO [id number] 00:00:00 Test Item Value Reference Range Interpretation Comments WBC (test code = 1001) 5.9 K/UL RBC (test code = 1002) 4.59 M/UL HEMOGLOBIN (test code = 1003) 13.0 G/DL HEMATOCRIT (test code = 1004) 38.6 % MCV (test code = 1005) 84.1 fL MCH (test code = 1006) 28.3 PG MCHC (test code = 1007) 33.7 G/DL RDW (test code = 1038) 14.0 % NEUTROPHILS (test code = 1008) 51.4 % LYMPHOCYTES (test code = 1010) 40.9 % MONOCYTES (test code = 1011) 6.0 % EOSINOPHILS (test code = 1012) 1.4 % BASOPHILS (test code = 1013) 0.3 % PLATELET COUNT (test code = 1015) 151 K/UL CBC W/AUTO [id number] 00:00:00 Test Item Value Reference Range Interpretation Comments WBC (test code = 1001) 5.9 K/UL RBC (test code = 1002) 4.59 M/UL HEMOGLOBIN (test code = 1003) 13.0 G/DL HEMATOCRIT (test code = 1004) 38.6 % MCV (test code = 1005) 84.1 fL MCH (test code = 1006) 28.3 PG MCHC (test code = 1007) 33.7 G/DL RDW (test code = 1038) 14.0 % NEUTROPHILS (test code = 1008) 51.4 % LYMPHOCYTES (test code = 1010) 40.9 % MONOCYTES (test code = 1011) 6.0 % EOSINOPHILS (test code = 1012) 1.4 % BASOPHILS (test code = 1013) 0.3 % PLATELET COUNT (test code = 1015) 151 K/UL COMPREHENSIVE METABOLIC [id number] 00:00:00 Test Item Value Reference Range Interpretation Comments GLUCOSE (test code = 2217) 86 MG/DL BUN (test code = 2208) 13 MG/DL CREATININE (test code = 2214) 0.70 MG/DL eGFR AMER. (test code 114 ML/MIN/1.73 = 61969) eGFR NON- AMER. (test 98 ML/MIN/1.73 code = 79742) CALC BUN/CREAT (test code = 19 RATIO 2235) SODIUM (test code = 2231) 141 MEQ/L POTASSIUM (test code = 2228) 4.1 MEQ/L CHLORIDE (test code = 2215) 103 MEQ/L CARBON DIOXIDE (test code = 27 MEQ/L 220) CALCIUM (test code = 2209) 8.9 MG/DL PROTEIN, TOTAL (test code = 6.8 G/DL 2228) ALBUMIN (test code = 2201) 4.1 G/DL CALC GLOBULIN (test code = 2.7 G/DL 2240) CALC A/G RATIO (test code = 1.5 RATIO 2234) BILIRUBIN, TOTAL (test code = 0.4 MG/DL 2207) ALKALINE PHOSPHATASE (test 85 U/L code = 2204) AST (test code = 2218) 22 U/L ALT (test code = 2219) 35 U/L TRICHOMONAS, THINPREP, [id number] 00:00:00 Test Item Value Reference Range Interpretation Comments TRICHOMONAS, AMPLIFIED TEST NOT PERFORMED (test code = 55822) CBC W/AUTO [id number] 00:00:00 Test Item Value Reference Range Interpretation Comments WBC (test code = 1001) TEST NOT PERFORMED K/UL RBC (test code = 1002) TEST NOT PERFORMED M/UL HEMOGLOBIN (test code = TEST NOT PERFORMED 1003) G/DL HEMATOCRIT (test code = TEST NOT PERFORMED % 1004) MCV (test code = 1005) TEST NOT PERFORMED fL MCH (test code = 1006) TEST NOT PERFORMED PG MCHC (test code = 1007) TEST NOT PERFORMED G/DL RDW (test code = 1038) TEST NOT PERFORMED % NEUTROPHILS (test code = TEST NOT PERFORMED % 1008) LYMPHOCYTES (test code = TEST NOT PERFORMED % 1010) MONOCYTES (test code = TEST NOT PERFORMED % 1011) EOSINOPHILS (test code = TEST NOT PERFORMED % 1012) BASOPHILS (test code = TEST NOT PERFORMED % 1013) PLATELET COUNT (test TEST NOT PERFORMED code = 1015) K/UL CBC W/AUTO [id number] 00:00:00 Test Item Value Reference Range Interpretation Comments WBC (test code = 1001) TEST NOT PERFORMED K/UL RBC (test code = 1002) TEST NOT PERFORMED M/UL HEMOGLOBIN (test code = TEST NOT PERFORMED 1003) G/DL HEMATOCRIT (test code = TEST NOT PERFORMED % 1004) MCV (test code = 1005) TEST NOT PERFORMED fL MCH (test code = 1006) TEST NOT PERFORMED PG MCHC (test code = 1007) TEST NOT PERFORMED G/DL RDW (test code = 1038) TEST NOT PERFORMED % NEUTROPHILS (test code = TEST NOT PERFORMED % 1008) LYMPHOCYTES (test code = TEST NOT PERFORMED % 1010) MONOCYTES (test code = TEST NOT PERFORMED % 1011) EOSINOPHILS (test code = TEST NOT PERFORMED % 1012) BASOPHILS (test code = TEST NOT PERFORMED % 1013) PLATELET COUNT (test TEST NOT PERFORMED code = 1015) K/UL COMPREHENSIVE METABOLIC [id number] 00:00:00 Test Item Value Reference Range Interpretation Comments GLUCOSE (test code = 2217) 90 MG/DL BUN (test code = 2208) 13 MG/DL CREATININE (test code = 2214) 0.63 MG/DL eGFR AMER. (test code 118 ML/MIN/1.73 = 33173) eGFR NON- AMER. (test 102 ML/MIN/1.73 code = 09710) CALC BUN/CREAT (test code = 21 RATIO 2235) SODIUM (test code = 2231) 142 MEQ/L POTASSIUM (test code = 2228) 4.8 MEQ/L CHLORIDE (test code = 2215) 108 MEQ/L CARBON DIOXIDE (test code = 23 MEQ/L 2205) CALCIUM (test code = 2209) 9.0 MG/DL PROTEIN, TOTAL (test code = 7.1 G/DL 2228) ALBUMIN (test code = 2201) 4.3 G/DL CALC GLOBULIN (test code = 2.8 G/DL 2240) CALC A/G RATIO (test code = 1.5 RATIO 2234) BILIRUBIN, TOTAL (test code = 0.3 MG/DL 2206) ALKALINE PHOSPHATASE (test 98 U/L code = 2204) AST (test code = 2218) 64 U/L ALT (test code = 2219) 72 U/L LIPID [id number] 00:00:00 Test Item Value Reference Range Interpretation Comments CHOLESTEROL (test code = 2210) 158 MG/DL TRIGLYCERIDES (test code = 2232) 93 MG/DL HDL CHOLESTEROL (test code = 2220) 53 MG/DL CALC LDL CHOL (test code = 2237) 86 MG/DL RISK RATIO LDL/HDL (test code = 1.62 RATIO 2238) HEMOGLOBIN [id number] 00:00:00 Test Item Value Reference Range Interpretation Comments HEMOGLOBIN A1c (test code = 83569) 5.9 % HEMOGLOBIN [id number] 00:00:00 Test Item Value Reference Range Interpretation Comments HEMOGLOBIN A1c (test code = 49097) 5.9 % [id number] 00:00:00 Test Item Value Reference Range Interpretation Comments TSH, THIRD GENERATION (test code 0.728 UIU/ML = 2821) [id number] 00:00:00 Test Item Value Reference Range Interpretation Comments TSH, THIRD GENERATION (test code 0.728 UIU/ML = 2821) GC AND CHLAMYDIA AMPLIFIED, [id number] 00:00:00 Test Item Value Reference Range Interpretation Comments GONORRHEA, TMA (test code = 609[address]) NEGATIVE CHLAMYDIA, TMA (test code = 44920) NEGATIVE PAP TEST, THINPREP, [id number] 00:00:00 Test Item Value Reference Range Interpretation Comments SOURCE: (test code = Cervical/Endocervical 8001) SLIDES: (test code = 1 8011) LMP: (test code = 8021) SEE NOTE SPECIMEN ADEQUACY: (test (NOTE) code = 57893) INTERPRETATION: (test NILM/NO EPITH. code = 96563) ABNORMALITY;SEE BELOW BLEMISH REMOVER: (test Susan Manzo code = 8101) [place],CT(ASCP)IAC LOCATION: (test code = (NOTE) 34504) CPT: (test code = 8140) (NOTE) HPV HIGH RISK WITH GENOTYPE, [id number] 00:00:00 Test Item Value Reference Range Interpretation Comments HPV HIGH RISK INTERP (test code = NEGATIVE 15256) HPV 16 (test code = 33680) NEGATIVE HPV 18 (test code = 33646) NEGATIVE HPV, HR, OTHER GENOTYPES (test code NEGATIVE = 67613) RPR [id number] 00:00:00 Test Item Value Reference Range Interpretation Comments RPR NON-REFLEX (test code = NON-REACTIVE 3499) TRICHOMONAS, AMPLIFIED [ADDED]2019-09-08 00:00:00 Test Item Value Reference Range Interpretation Comments TRICHOMONAS, AMPLIFIED (test code = Negative 30132) ACUTE HEPATITIS [id number] 00:00:00 Test Item Value Reference Range Interpretation Comments HEPATITIS A IgM (test code = NON-REACTIVE 39913) HEPATITIS B CORE IgM (test code NON-REACTIVE = 0544) HEPATITIS B SURF AG (test code = NON-REACTIVE 6029) HEPATITIS C ANTIBODY (test code NON-REACTIVE = 5222) INTERPRETATION HEPATITIS A: (NOTE) (test code = 2552) INTERPRETATION HEPATITIS B: (NOTE) (test code = 98687) INTERPRETATION HEPATITIS C: (NOTE) (test code = 60561) HIV 1/2 4TH GEN, RFLX CONF [ADDED]2019-09-08 00:00:00 Test Item Value Reference Range Interpretation Comments HIV / 4TH GEN, RFLX CONF (test NON-REACTIVE code = 3514) TROPONIN [id number] 08:04:00 Test Item Value Reference Range Interpretation Comments TROPONIN I (test <0.012 See_Comment [Automated code = 7050816690) message] The system which generated this result transmitted reference range : <=0.034 ng/mL. The reference range was not used to interpr et this result as normal/abnormal . TRISTA (test code = Equal or Less than TRISTA) 0.034 ng/ml---Normal?Not e: Cardiac troponin begins to rise 3-4 hours after the onset of ischemia. Repeat in 4-6 hours if the sample was drawn within 3-4 hours of the onset of the symptom and found normal. Between 0.035 and 0.120 ng/mL--- Borderline. Questionable myocardial injury or necrosis?Note: Serial measurement may be necessary to confirm or exclude the diagnosis of myocardial injury or necrosis; Clinical correlation (symptoms, EKGs, imaging studies, and others) required; Repeat in 4-6 hours if clinically indicated.? Equal or Higher than 0.121 ng/mL---Abnormal. Myocardial Injury or Necrosis Likely? Biotin has been reported to cause a negative bias, interpret results relative to patient's use of biotin.? ? Lab Interpretation Normal (test code = 65271-7) [facility] [id number] 07:08:16 Impression: No CTA evidence for pulmonary embolus. No acute pulmonary process. RL: 460 AFC: [id number]: Positive d-dimer, short of breath Comparison: None Technique: CTA of the chest was performedfollowing the administration ofintravenous contrast material. Three-dimensional reformats were genera tedfollowing completion of the exam. CT scan was performed according to ALARA(as low as reasonably achievable) policy. Findings: The visualized thyroid gland is within normal limits. There is nothoracic aortic aneurysm or dissection. The heart is normal in size withoutsignificant pericardial effusion.No filling defect is appreciated in thepulmonary arteries to the level of the distal segmental arteries. Nopathologically enlarged mediastinal or hilar lymph nodes are identified. No acute process is identified in the upper abdomen. No acute pulmonaryprocess is identified. Bone windows through the chest demonstrate noosseous destructive lesion. [facility], Radiant Results Inft User - 11/17/2018 2:11 AM CDTIndication: Positive d-dimer, short of breathComparison: NoneTechnique: CTA of the chest was performed following the administration ofintravenous contrast material. Three-dimensional reformats were generatedfollowing completion of the exam. CT scan was performed according to ALARA(as low as reasonably achievable) policy.Findings: The visualized thyroid gland is within normal limits. There is nothoracic aortic aneurysm or dissection. The heart is normal in size withoutsignificant pericardial effusion.No filling defect is appreciated in thepulmonary arteries to the level of the distal segmental arteri es. Nopathologically enlarged mediastinal or hilar lymph nodes are identified.No acute process is identified in the upper abdomen. No acute pulmonaryprocess is identified. Bone windows through the chest demonstrate noosseous destructive lesion. IMPRESSIONImpression:No CTA evidence for pulmonary embolus.No acute pulmonary process.RL: 460AF: [id number] Army Medical CenterD-DIMER 2018-11-17 05:47:00 Test Item Value Reference Range Interpretation Comments D-DIMER (test code = See_Comment H [Autom ated [id number]) message] The system which generated this result transmitted reference range : <0.41 ?g/mL (FEU). The reference range was not used to interpret this result as normal/abnormal . TRISTA (test code = TRISTA) This test may be used in conjunction with a clinical pretest probability (PTP) assessment model to exclude pulmonary embolism (PE) and as an aid in the diagnosis of deep venous thrombosis (DVT) in outpatients suspected of PE or DVT.A D-Dimer value less than 0.50 ?g/ml (FEU) has a negative predicative value of 98 to 100% (95% CI) for the exclusion of pulmonary embolism (PE) and 95 to 100% (95% CI) as an aid in the diagnosis of deep vein thrombosis (DVT) when there is low or moderate pretest probability of PE or DVT. D-Dimer values are expressed in initial fibrinogen equivalent units (FEU). Lab Interpretation Abnormal (test code = 61959-1) [facility] HospitalTRBRITNEY [id number] 04:06:00 Test Item Value Reference Range Interpretation Comments TROPONIN I (test <0.012 See_Comment [Automated code = 7629599920) message] The system which generated this result transmitted reference range : <=0.034 ng/mL. The reference range was not used to interpr et this result as normal/abnormal . TRISTA (test code = Equal or Less than TRISTA) 0.034 ng/ml---Normal?Not e: Cardiac troponin begins to rise 3-4 hours after the onset of ischemia. Repeat in 4-6 hours if the sample was drawn within 3-4 hours of the onset of the symptom and found normal. Between 0.035 and 0.120 ng/mL--- Borderline. Questionable myocardial injury or necrosis?Note: Serial measurement may be necessary to confirm or exclude the diagnosis of myocardial injury or necrosis; Clinical correlation (symptoms, EKGs, imaging studies, and others) required; Repeat in 4-6 hours if clinically indicated.? Equal or Higher than 0.121 ng/mL---Abnormal. Myocardial Injury or Necrosis Likely? Biotin has been reported to cause a negative bias, interpret results relative to patient's use of biotin.? ? Lab Interpretation Normal (test code = 41852-0) [facility]aPTT2019-[facility] 04:02:00 Test Item Value Reference Range Interpretation Comments APTT Patient (test See_Comment [Automat ed code = 3173-2) message] The system which generated this result transmitted reference range : 23 - 38 Seconds . The reference range was not used to interpr et this result as normal/abnormal . TRISTA (test code = TRISTA) The [facility] patient population mean normal value for aPTT is 30 seconds. Lab Interpretation Normal (test code = 18959-6) [facility] HospitalPROTHROMBIN TIME / [id number] 04:00:00 Test Item Value Reference Range Interpretation Comments PROTIME PATIENT (test See_Comment [Auto mated message] code = 5964-2) The system wh ich generated this result transmitted ref erence range: 12.0 - 1 4.7 Seconds. The re ference range was not u sed to interpret this result as normal/abnor mal. INR (test code = 6301-6) Nor mal INR <1.1; Warfarin Therap eutic range 2.0 to 3. 0 or 2.5 to 3.5, dep ending upon the indica tions. Lab Interpretation (test Normal code = 86874-1) [facility] HospitalCOM. METABOLIC PANEL (93951)2018-11-17 03:54:00 Test Item Value Reference Range Interpretation Comments NA (test code = 147 mmol/L 135-145 H 3820859660) K (test code = 3.8 mmol/L 3.5-5 4424229963) CL (test code = 112 mmol/L 98-108 H 0562445808) CO2 TOTAL (test code = 25 mmol/L 23-31 0375245882) AGAP (test code = 2-16 5858400372) BUN (test code = 17 mg/dL 7-23 3567013271) GLUCOSE (test code = 110 mg/dL 70-110 9907425186) CREATININE (test code = 0.85 mg/dL 0.5-1.04 8435129050) TOTAL BILI (test code = 0.3 mg/dL 0.1-1.8 3552235856) CALCIUM (test code = 9.7 mg/dL 8.6-10.6 6793689842) T PROTEIN (test code = 7.9 g/dL 6.3-8.2 9024293874) ALBUMIN (test code = 4.6 g/dL 3.5-5 4265396960) ALK PHOS (test code = 102 U/L 34-122 4636642698) ALT(SGPT) (test code = 27 U/L 9-51 8911686848) AST(SGOT) (test code = 35 U/L 13-40 6283290882) eGFR Calculation mL/min/1.73m2 (Non-) (test code = 9879309921) eGFR Calculation mL/min/1.73m2 () (test code = 1129297502) TRISTA (test code = TRISTA) Association of Glomerular Filtration Rate (GFR) and Staging of Kidney Disease*+ + + +| GFR (mL/min/1.73 m2)?| With Kidney Damage?|?Without Kidney Damage+ --------+ --------+ +|?>90?|?S tage one?|? Normal?+ ---------+ ---------+ +|?60-89? |?Stage two?|? Decreased GFR? + --+ --+ ------+|?30-59?|?Stage three?|? Stage three? + --+ --+ ------+|?15-29?|?Stage four? |? Stage four?+ -------+ -------+ +|?<15 (or dialysis)?|?Stage five? |? Stage five?+ -------+ -------+ +*Each stage assumes the associated GFR level has been in effect for at least three months.?Stages 1 to 5, with or without kidney disease, indicate chronic kidney disease.Notes: Determination of stages one and two (with eGFR >59mL/min/1.73 m2) requires estimation of kidney damage for at least three months as defined by structural or functional abnormalities of the kidney, manifested by either:Pathological abnormalities or Markers of kidney damage (including abnormalities in the composition of the blood or urine or abnormalities in imaging tests). Lab Interpretation Abnormal (test code = 22031-8) [facility] HospitalLIPASE, [id number] 03:54:00 Test Item Value Reference Range Interpretation Comments LIPASE (test code = 5060807402) 71 U/L 0-220 Lab Interpretation (test code = Normal 58966-6) [facility] HospitalCB WITH [id number] 03:36:00 Test Item Value Reference Range Interpretation Comments WBC (test code = See_Comment [Automated message] 0890-2) The system [employer] generated this result transmitted ref erence range: 4.30 - 1 1.10 10*3/?L. The re ference range was not u sed to interpret this result as normal/abnor mal. RBC (test code = See_Comment [Automated message] 789-8) The system [employer] generated this result transmitted ref erence range: 3.93 - 5 .25 10*6/?L. The re ference range was not u sed to interpret this result as normal/abnor mal. HGB (test code = 13.0 g/dL 11.6-15 718-7) HCT (test code = 38.5 % 35.7-45.2 4544-3) MCV (test code = 84.1 fL 80.6-95.5 787-2) MCH (test code = 28.4 pg 25.9-32.8 785-6) MCHC (test code = 33.8 g/dL 31.6-35.1 786-4) RDW-SD (test code 39.8 fL 39-49.9 = 50870-5) RDW-CV (test code 13.2 % 12-15.5 = 788-0) PLT (test code = See_Comment [Automated message] 777-3) The system whic h generated this result transmitted ref erence range: 166 - 35 8 10*3/?L. The re ference range was not u sed to interpret this result as normal/abnor mal. MPV (test code = 11.1 fL 9.5-12.9 63830-6) NRBC/100 WBC (test See_Comment [Automat ed message] code = 8171028440) The syste m which generated this result transmitted ref erence range: 0.0 - 10 .0 /100 WBCs. The refer ence range was not u sed to interpret this result as normal/abnor mal. NRBC x10^3 (test <0.01 See_Comment [Automated message] code = 4416137766) The syste m which generated this result transmitted ref erence range: 10*3/?L. The reference range was not used to interpr et this result as normal/abnormal . GRAN MAT (NEUT) % 60.0 % (test code = 770-8) IMM GRAN % (test 0.30 % code = 1793903557) LYMPH % (test code 32.7 % = 736-9) MONO % (test code 5.6 % = 5905-5) EOS % (test code = 1.1 % 713-8) BASO % (test code 0.3 % = 706-2) GRAN MAT 3.65 10*3/uL 1.88-7.09 x10^3(ANC) (test code = 2965753072) IMM GRAN x10^3 <0.03 0-0.06 (test code = 0855899027) LYMPH x10^3 (test 1.99 10*3/uL 1.32-3.29 code = 731-0) MONO x10^3 (test 0.34 10*3/uL 0.33-0.92 code = 742-7) EOS x10^3 (test 0.07 10*3/uL 0.03-0.39 code = 711-2) BASO x10^3 (test <0.03 0.01-0.07 code = 704-7) [facility] HospitalXR CHEST 1 [id number] 03:33:48 No acute cardiopulmonary abnormality. * * * * * * * * ORIGINAL REPORT * * * * * * * *PROCEDURE: XR CHEST 1 VW CLINICAL INDICATION: chest pain COMPARISON: None FINDINGS: The lungs are clear. No pleuraleffusion or pneumothorax is seen. The heartis physiologic upper limits in size. No acute bony abnormality. [facility], Radiant Results Inft User - 11/16/2018 10:35 PM CDT* * * * * * * * ORIGINAL REPORT * * * * * *PROCEDURE: XR CHEST 1 VWCLINICAL INDICATION: chest pain COMPARISON: NoneFINDINGS:The lungs are clear. No pleural effusion or pneumothorax is seen. The heartis physiologic upper limits in size.No acute bony abnormality.IMPRESSIONNo acute cardiopulmonary abnormality.[facility] HospitalCOMPREHENSIVE METABOLIC [id number] 00:00:00 Test Item Value Reference Range Interpretation Comments GLUCOSE (test code = 2217) 150 MG/DL BUN (test code = 2208) 14 MG/DL CREATININE (test code = 2214) 0.70 MG/DL eGFR AMER. (test code 116 ML/MIN/1.73 = 32528) eGFR NON- AMER. (test 100 ML/MIN/1.73 code = 58039) CALC BUN/CREAT (test code = 20 RATIO 2235) SODIUM (test code = 2231) 145 MEQ/L POTASSIUM (test code = 2228) 4.2 MEQ/L CHLORIDE (test code = 2215) 105 MEQ/L CARBON DIOXIDE (test code = 25 MEQ/L 2206) CALCIUM (test code = 2209) 9.3 MG/DL PROTEIN, TOTAL (test code = 7.3 G/DL 222) ALBUMIN (test code = 2201) 4.7 G/DL CALC GLOBULIN (test code = 2.6 G/DL 2240) CALC A/G RATIO (test code = 1.8 RATIO 2234) BILIRUBIN, TOTAL (test code = 0.5 MG/DL 2207) ALKALINE PHOSPHATASE (test 84 U/L code = 2204) AST (test code = 2218) 23 U/L ALT (test code = 2219) 24 U/L LIPID [id number] 00:00:00 Test Item Value Reference Range Interpretation Comments CHOLESTEROL (test code = 2210) 159 MG/DL TRIGLYCERIDES (test code = 2232) 228 MG/DL HDL CHOLESTEROL (test code = 2220) 37 MG/DL CALC LDL CHOL (test code = 2237) 76 MG/DL RISK RATIO LDL/HDL (test code = 2.06 RATIO 2238) CBC W/AUTO [id number] 00:00:00 Test Item Value Reference Range Interpretation Comments WBC (test code = 1001) 4.3 K/UL RBC (test code = 1002) 4.64 M/UL HEMOGLOBIN (test code = 1003) 13.5 G/DL HEMATOCRIT (test code = 1004) 39.2 % MCV (test code = 1005) 84.5 fL MCH (test code = 1006) 29.1 PG MCHC (test code = 1007) 34.4 G/DL RDW (test code = 1038) 13.5 % NEUTROPHILS (test code = 1008) 52.2 % LYMPHOCYTES (test code = 1010) 42.0 % MONOCYTES (test code = 1011) 3.7 % EOSINOPHILS (test code = 1012) 1.9 % BASOPHILS (test code = 1013) 0.2 % PLATELET COUNT (test code = 1015) 169 K/UL CBC W/AUTO [id number] 00:00:00 Test Item Value Reference Range Interpretation Comments WBC (test code = 1001) 4.3 K/UL RBC (test code = 1002) 4.64 M/UL HEMOGLOBIN (test code = 1003) 13.5 G/DL HEMATOCRIT (test code = 1004) 39.2 % MCV (test code = 1005) 84.5 fL MCH (test code = 1006) 29.1 PG MCHC (test code = 1007) 34.4 G/DL RDW (test code = 1038) 13.5 % NEUTROPHILS (test code = 1008) 52.2 % LYMPHOCYTES (test code = 1010) 42.0 % MONOCYTES (test code = 1011) 3.7 % EOSINOPHILS (test code = 1012) 1.9 % BASOPHILS (test code = 1013) 0.2 % PLATELET COUNT (test code = 1015) 169 K/UL HEMOGLOBIN [id number] 00:00:00 Test Item Value Reference Range Interpretation Comments HEMOGLOBIN A1c (test code = 95066) 5.8 % HEMOGLOBIN [id number] 00:00:00 Test Item Value Reference Range Interpretation Comments HEMOGLOBIN A1c (test code = 30164) 5.8 %"
[2021-10-21 21:27] LABS: Urine Blood Negative (Negative); Urine Glucose Negative (Negative); Urine Protein Negative (Negative); Urine Specific Gravity >=1.030 (1.005-1.030)
[2021-10-21 21:39] LABS: Absolute Lymphocytes (CBC) 2.2 K/uL (0.7-4.9); Hematocrit 39.6 % (36.0-45.0); Lymphocytes % 39.9 % (15.3-44.8); MPV 9.1 fL (7.6-11.3); RBC Red Blood Cell Count 4.77 M/uL (3.86-4.86)
[2021-10-21] MEDS ORDERED: dexAMETHasone 10 MG/ML VIAL ONE (21:41)
[2021-10-21] MEDS ORDERED: NA CHLORIDE 0.9% 500 ML ONE (21:41)
[2021-10-21] MEDS ORDERED: METOCLOPRAMIDE 10 MG/2mL INJ ONE (21:41)
[2021-10-21 21:52] LABS: SARS-CoV-2 Antigen Rapid Res Negative (Negative)
[2021-10-21 21:53] LABS: Urine Bacteria <20 /HPF (<20); Urine RBC <5 /HPF (None Seen)
[2021-10-21 21:55] LABS: Potassium 3.8 mmol/L (3.5-5.1)
--- NOTE | 2021-10-21 22:30 | RAD REPORT ---
EXAM DESCRIPTION: CT - Head Brain Wo Cont - 10/21/2021 10:23 pm CLINICAL HISTORY: left arm tingling, dizziness, ataxia Headache, drowsiness COMPARISON: Head angio dated 10/21/2021; Facial Bones W/ Mpr dated 09/13/2020 TECHNIQUE: All CT scans are performed using dose optimization technique as appropriate and may inclu de automated exposure control or mA/KV adjustment according to patient size. FINDINGS: No intracranial hemorrhage, hydrocephalus or extra-axial fluid collection.No areas of brai n edema or evidence of midline shift. The paranasal sinuses and mastoids are clear. The calvarium is intact. IMPRESSION: No acute intracranial abnormality.
--- NOTE | 2021-10-21 22:32 | RAD REPORT ---
EXAM DESCRIPTION: CT - Head angio - 10/21/2021 10:24 pm CLINICAL HISTORY: ataxia, headache, neck pain Headache, drowsiness COMPARISON: Facial Bones W/ Mpr dated 09/13/2020; Head angio dated 05/08/2020 TECHNIQUE: CT angiography of the head was performed with MIPs. All CT scans are performed using dose optimization technique as appropriate and may include automated exposure control or mA/KV adjustment according to patient size. FINDINGS: No evidence of aneurysm is detected. No flow-limiting stenosis or vascular malformation id entified. Antegrade flow is seen in the vertebral arteries. The vertebral arteries are codominant. The visualized dural venous sinuses are patent. IMPRESSION: No significant flow abnormality is detected.
--- NOTE | 2021-10-21 22:33 | RAD REPORT ---
EXAM DESCRIPTION: CT - Neck Angio - 10/21/2021 10:24 pm CLINICAL HISTORY: headache, neck pain, ataxia, left arm tingling COMPARISON: Head C Spine Mpr Wo Con dated 09/13/2020; Neck Angio dated 05/08/2020 TECHNIQUE: CT angiography of the neck vessels was performed with MIPs. All CT scans are performed using dose optimization technique as appropriate and may include automated exposure control or mA/KV adjustment according to patient size. FINDINGS: A left aortic arch is identified with normal three vessel configuration of the great vesse ls. No significant flow abnormality is seen of the common carotid bilaterally. No significant stenosis is identified involving the cervical segments of both internal carotid arteri es. Normal flow is seen within both vertebral arteries. IMPRESSION: No significant flow abnormality of the neck vessels is identified.
--- NOTE | 2021-10-21 22:53 | ER ---
Nurse's Notes [facility] Name: Makayla Tejada Age: 56 yrs Sex: Female : 1965 Arrival Date: 10/21/2021 Time: 20: Bed 16 Private MD: Diagnosis: Headache;Paresthesia of skin Presentation: 10/21 20:33 Chief complaint: Patient states: C/o H/A, and neck pain since Wednesday, "today I felt ll3 like I was losing my balance, and my left arm feels numb and heavy", c/o nausea and SOB. Coronavirus screen: Vaccine status: Patient reports receiving the 2nd dose of the covid vaccine. headache, nausea. Ebola Screen: No symptoms or risks identified at this time. Initial Sepsis Screen: Does the patient meet any 2 criteria? No. Patient's initial sepsis screen is negative. Does the patient have a suspected source of infection? No. Patient's initial sepsis screen is negative. Risk Assessment: Do you want to hurt yourself or someone else? Patient reports no desire to harm self or others. Onset of symptoms was October 17, 2021. 20:33 Method Of Arrival: Ambulatory ll3 20:33 Acuity: MELISA 3 ll3 Triage Assessment: 21:00 General: Appears uncomfortable, Behavior is appropriate for age. Pain: Complains of ke1 pain in right base of the skull and right occipital area and forehead and top of head Pain currently is 7 out of 10 on a pain scale. at worst was 10 out of 10 on a pain scale. level that patient reports is acceptable is 4 out of 10 on a pain scale. EENT: Throat. Historical: - Allergies: 20:39 No Known Allergies; ll3 - PMHx: 20:39 B shoulder repair-tendon; Migraines; ll3 - Immunization history:: Client reports receiving the 2nd dose of the Covid vaccine. - Social history:: Smoking status: Patient denies any tobacco usage or history of. - Family history:: not pertinent. - Hospitalizations: : No recent hospitalization is reported. Screenin:00 Abuse screen: Denies threats or abuse. Nutritional screening: No deficits noted. ke1 Tuberculosis screening: No symptoms or risk factors identified. Fall Risk None identified. Assessment: 21:00 Neuro: Level of Consciousness is awake, alert, Oriented to person, place, time, ke1 situation. Respiratory: Respiratory effort is even, unlabored, Respiratory pattern is. Vital Signs: 20:33 BP 170 / 98; Pulse 73; Resp 18; Temp 98.2(O); Pulse Ox 100% on R/A; Weight 88.45 kg ll3 (R); Height 5 ft. 2 in. (157.48 cm) (R); Pain 8/10; 20:33 Body Mass Index 35.67 (88.45 kg, 157.48 cm) ll3 Malathi Coma Score: 22:51 Eye Response: spontaneous(4). Verbal Response: oriented(5). Motor Response: obeys rn commands(6). Total: 15. ED Course: 20:09 Patient arrived in ED. bp1 20:37 Ganga Hensley MD is Attending Physician. rn 20:39 Triage completed. ll3 20:39 Arm band placed on. ll3 21:00 Meghan Alvarado, RN is Primary Nurse. ke1 21:00 Bed in low position. Call light in reach. ke1 21:29 Inserted saline lock: 20 gauge in right antecubital area, using aseptic technique. ke1 22:25 CT Head Brain wo Cont In Process Unspecified. EDMS 22:[address] In Process Unspecified. EDMS 22:[address] In Process Unspecified. EDMS 22:53 Arturo Mancera MD is Referral Physician. rn 23:28 No provider procedures requiring assistance completed. IV discontinued, intact, ll3 bleeding controlled, No redness/swelling at site. Pressure dressing applied. Administered Medications: 21:40 Drug: NS 0.9% 500 ml Route: IV; Rate: bolus; Site: right antecubital; ke1 21:40 Drug: Reglan (metoCLOPramide) 10 mg Route: IVP; Site: right antecubital; ke1 21:40 Drug: Decadron - Dexamethasone 10 mg Route: IVP; Site: right antecubital; ke1 Medication: 23:29 VIS not applicable for this client. ll3 Outcome: 22:53 Discharge ordered by . rn 23:28 Discharged to home ambulatory. ll3 23:28 Condition: stable 23:28 Discharge instructions given to patient, Instructed on discharge instructions, follow up and referral plans. medication usage, Demonstrated understanding of instructions, follow-up care, medications, Prescriptions given X 1. 23:29 Patient left the ED. ll3 Signatures: Dispatcher [employer] EDMS Ganga Hensley MD MD rn Carlee Mays Lynsea, RN RN ll3 Meghan Alvarado RN RN ke1
--- NOTE | 2021-10-21 22:54 | EDPHYS ---
Physician Documentation [facility] Name: Makayla Tejada Age: 56 yrs Sex: Female : 1965 Arrival Date: 10/21/2021 Time: 20:09 Bed 16 Private MD: ED Physician Ganga Hensley HPI: 10/21 20:59 This 56 yrs old Female presents to ER via Ambulatory with complaints of rn headache, Arm Pain, Neck Pain, >24Hrs Old, Numbness Of Arm. 20:59 The patient complains of pain to the top of head, forehead, right occipital area and rn right base of the skull. The patient describes the headache as aching. Onset: The symptoms/episode began/occurred 4 day(s) ago. Associated signs and symptoms: Pertinent positives: paresthesias, Pertinent negatives: altered mental status, fever, rash, vision changes, vision loss, vomiting, weakness. Severity of symptoms: At its worst the pain was moderate, "similar to past headaches", in the emergency department the pain is unchanged. Headache History: The patient has had previous headaches and this one is similar to previous episodes. The symptoms are alleviated by nothing. the symptoms are aggravated by nothing. The patient has experienced similar episodes in the past. The patient has not recently seen a physician. Pt reports "migraine headache" for 6 days now, reports all over head and radiates down neck. Seen at clinic for this, got "2 shots" that helped but didn't take pain away. + hx of migraines in past. What concerns her is that this time is having left arm tingling and left facial tingling that she has never had with previous headaches. . Historical: - Allergies: 20:39 No Known Allergies; ll3 - PMHx: 20:39 B shoulder repair-tendon; Migraines; ll3 - Immunization history:: Client reports receiving the 2nd dose of the Covid vaccine. - Social history:: Smoking status: Patient denies any tobacco usage or history of. - Family history:: not pertinent. - Hospitalizations: : No recent hospitalization is reported. ROS: 21:01 Constitutional: Negative for fever, chills, and weight loss, Eyes: Negative for injury, rn pain, redness, and discharge, Neck: + neck pain Cardiovascular: Negative for chest pain, palpitations, and edema, Respiratory: Negative for shortness of breath, cough, wheezing, and pleuritic chest pain, Abdomen/GI: Negative for abdominal pain, nausea, vomiting, diarrhea, and constipation, Back: Negative for injury and pain, MS/Extremity: Negative for injury and deformity, Skin: Negative for injury, rash, and discoloration, Neuro: + headache, + tingling to left face and arm. + dizziness Exam: 21:01 Constitutional: This is a well developed, well nourished patient who is awake, alert, rn and in no acute distress. Head/Face: Normocephalic, atraumatic. Eyes: PERRL. Periorbital areas with no swelling, redness, or edema. Neck: No Meningismus. Cardiovascular: Regular rate and rhythm. No pulse deficits. Respiratory: No increased work of breathing, no retractions or nasal flaring. Skin: Warm, dry, no cyanosis or discoloration. MS/ Extremity: Pulses equal, no cyanosis. Neurovascular intact. Full, normal range of motion. Equal circumference. Neuro: Awake and alert, GCS 15, oriented to person, place, time, and situation. + left facial numbness. + LUE numbness. Motor strength 5/5 in all extremities. Sensory grossly intact elsewhere. Slow gait, does not fall, seems a bit unsteady. 21:51 ECG was reviewed by the Attending Physician. rn Vital Signs: 20:33 BP 170 / 98; Pulse 73; Resp 18; Temp 98.2(O); Pulse Ox 100% on R/A; Weight 88.45 kg ll3 (R); Height 5 ft. 2 in. (157.48 cm) (R); Pain 8/10; 20:33 Body Mass Index 35.67 (88.45 kg, 157.48 cm) ll3 Malathi Coma Score: 22:51 Eye Response: spontaneous(4). Verbal Response: oriented(5). Motor Response: obeys rn commands(6). Total: 15. MDM: 20:37 Patient medically screened. rn 22:15 ED course: Pt states headache started last week, numbness and dizziness began this AM.. rn 22:51 Differential diagnosis: hypertensive headache, intracerebral hemorrhage, migraine, rn neoplasm, vasomotor headache, complicated migraine. Data reviewed: vital signs, nurses notes, lab test result(s), EKG, radiologic studies, CT scan, and as a result, I will admit patient. Counseling: I had a detailed discussion with the patient and/or guardian regarding: the historical points, exam findings, and any diagnostic results supporting the discharge/admit diagnosis, lab results, radiology results, the need for further work-up and treatment in the hospital. ED course: Offered admission to hospital for MRI in AM to completely rule out CVA, patient wants to go home. Does not want to be admitted. Feels much better, headache and tingling improved. Most likely complicated migraine but told her MRI and admission is only way to rule out CVA. Understands risks of leaving and wants to go home. States will f/u with Dr. Mancera. . 10/21 20:47 Order name: CBC with Diff; Complete Time: 22:06 rn 10/21 20:47 Order name: Basic Metabolic Panel; Complete Time: 22:06 rn 10/21 20:47 Order name: CT Head Brain wo Cont; Complete Time: 22:46 rn 10/21 20:47 Order name: Urine Microscopic Only; Complete Time: 22:06 rn 10/21 20:47 Order name: SARS-COV-2 Antigen Rapid; Complete Time: 22:06 rn 10/21 21:27 Order name: Urine Dipstick-Ancillary; Complete Time: 22:06 EDIN 10/21 20:47 Order name: Head Angio CT; Complete Time: 22:46 rn 10/21 20:47 Order name: Neck Angio CT; Complete Time: 22:46 rn 10/21 20:47 Order name: IV Start; Complete Time: 21:30 rn 10/21 20:47 Order name: Urine Dipstick-Ancillary (obtain specimen); Complete Time: 21:30 rn 10/21 20:47 Order name: EKG; Complete Time: 20:48 rn 10/21 20:47 Order name: EKG - Nurse/Tech; Complete Time: 21:45 rn EC:51 Rate is 81 beats/min. Rhythm is regular. QRS [place] is Normal. [place] interval is normal. QRS rn interval is normal. QT interval is normal. No Q waves. T waves are Normal. T waves are Inverted in lead V3. No ST changes noted. Clinical impression: NSR w/ Non-specific ST/T Changes. Interpreted by me. Reviewed by me. Administered Medications: 21:40 Drug: NS 0.9% 500 ml Route: IV; Rate: bolus; Site: right antecubital; ke1 21:40 Drug: Reglan (metoCLOPramide) 10 mg Route: IVP; Site: right antecubital; ke1 21:40 Drug: Decadron - Dexamethasone 10 mg Route: IVP; Site: right antecubital; ke1 Disposition Summary: 10/21/21 22:53 Discharge Ordered Location: Home rn Problem: an ongoing problem rn Symptoms: have improved rn Condition: Stable rn Diagnosis - Headache rn - Paresthesia of skin rn Followup: rn - With: Arturo Mancera MD - When: As needed - Reason: Recheck today's complaints, Re-evaluation by your physician Discharge Instructions: - Discharge Summary Sheet rn - General Headache Without Cause rn - Migraine Headache rn - Paresthesia rn Forms: - Medication Reconciliation Form rn - Thank You Letter rn - Antibiotic manager furniture - Prescription Opioid Use rn Prescriptions: - Medrol (Maxi) 4 mg Oral Tablets, Dose Pack - take 1 tablet by ORAL route as directed - follow package instructions; 1 rn packet; Refills: 0, Product Selection Permitted Signatures: Dispatcher [employer] Ganga Segura MD MD rn Loubet, Lynsea RN RN ll3 Meghan Alvarado, RN RN ke1
[2021-10-22 01:29] VITALS: BP 170/98; TEMP 98.2; O2SAT 100
--- NOTE | 2021-10-22 07:53 | EKG ---
Test Date: 2021-10-21 Test Time: 21:43:29 Military Analyst: NEELAM MEASUREMENT RESULTS: Intervals: Rate: 81 HI: 118 QRSD: 84 QT: 348 QTc: 404 Julian: P: 59 HI: 118 QRS: 52 T: 42 INTERPRETIVE STATEMENTS: Normal sinus rhythm Nonspecific T wave abnormality Abnormal ECG Compared to ECG 05/08/2020 21:12:04 T-wave abnormality now present Short HI interval no longer present Electronically Signed On 10-22-21 07:52:25 CDT by Ernesto Zavala
== END 2021-10-21 23:29 | disposition home or self-care (01) ==
LOC: ER 20:07
DX: R51.9 Headache, unspecified (principal); R20.2 Paresthesia of skin; Z20.822 Contact with and (suspected) exposure to COVID-19
CPT/HCPCS: 93005; 85025; 80048; 36415; 70450; 70496; 70498; 96375; 96374; 99284; 87811; Q9967; J2765; J1100; J7040; 81003; 81015

== ENCOUNTER 2023-03-29 16:39 | Inpatient (IN) | payer OTHER ==
[2023-03-29] MEDS ORDERED: ASPIRIN 325 MG TAB ONE (17:30)
[2023-03-29] MEDS ORDERED: ACETAMINOPHEN 500 MG TAB ONE (17:30)
[2023-03-29] MEDS ORDERED: NITROGLYCERIN 0.4 MG/TAB SL ONE (17:31)
--- NOTE | 2023-03-29 17:48 | RAD REPORT ---
EXAM DESCRIPTION: RAD - Chest Single View - 03/29/2023 5:42 pm CLINICAL HISTORY: CHEST PAIN Chest pain. COMPARISON: Chest Single View dated 05/08/2020; CHEST PA AND LAT 2 VIEW dated 08/21/2009 FINDINGS: Portable technique limits examination quality. Mild interstitial pulmonary edema. The heart is mildly enlarged. No displaced fractures. IMPRESSION: Mild CHF.
[2023-03-29 17:53] LABS: Absolute Lymphocytes (CBC) 1.4 K/uL (0.7-4.9); Hematocrit 36.8 % (36.0-45.0); Lymphocytes % 32.7 % (15.3-44.8); MCV 84.5 fL (80-100); MPV 8.9 fL (7.6-11.3); Platelets 155 thou/uL (152-406); RBC Red Blood Cell Count 4.35 M/uL (3.86-4.86)
[2023-03-29 18:13] LABS: Albumin 3.6 g/dL (3.4-5.0); Bilirubin Direct 0.1 mg/dL (0-0.2); Bilirubin Indirect, Calculated 0.3 mg/dL (0.2-0.8); Bilirubin Total 0.4 mg/dL (0.2-1.0); Magnesium 2.2 mg/dL (1.6-2.4); Potassium 3.7 mEq/L (3.5-5.1); Protein, Total 7.2 g/dL (6.4-8.2); Troponin High Sensitivity 5.9 pg/mL (<58.9)
--- NOTE | 2023-03-29 18:55 | EDPHYS ---
Physician Documentation [facility] Name: Makayla Tejada Age: 58 yrs Sex: Female : 1965 Arrival Date: 03/29/2023 Time: 16:39 Bed 19 Private MD: ED Physician Tab Fuentes HPI: 03/29 19:00 This 58 yrs old Female presents to ER via Ambulatory with complaints of Chest rt Tightness, High Blood Pressure. 19:00 Patient presents to the ED with 3 days of intermittent chest tightness, shortness of rt breath, worse with exertion. States that the symptoms have worsened today. Denies any complaints at this time. Pain is pressure-like in nature, nonradiating, no other aggravating or elevating factors.. Historical: - Allergies: 17:14 No Known Allergies; ph - PMHx: 17:14 Migraines; Hypertensive disorder; Depressive disorder; ph - PSHx: 17:14 Cholecystectomy; Total abdominal hysterectomy; ph - Immunization history:: Adult Immunizations unknown. - Social history:: Smoking status: Patient denies any tobacco usage or history of. - Family history:: not pertinent. ROS: 19:00 Constitutional: Negative for fever, chills, and weight loss, Abdomen/GI: Negative for rt abdominal pain, nausea, vomiting, diarrhea, and constipation, MS/Extremity: Negative for injury and deformity, Skin: Negative for injury, rash, and discoloration, Neuro: Negative for headache, weakness, numbness, tingling, and seizure, Psych: Negative for depression, anxiety, suicide ideation, homicidal ideation, and hallucinations, 19:00 Cardiovascular: Positive for chest pain, Negative for edema, 19:00 Respiratory: Positive for shortness of breath, Negative for cough, Exam: 19:00 Constitutional: This is a well developed, well nourished patient who is awake, alert, rt and in no acute distress. Head/Face: Normocephalic, atraumatic. Chest/axilla: Normal chest wall appearance and motion. Nontender with no deformity. No lesions are appreciated. Cardiovascular: Regular rate and rhythm with a normal S1 and S2. No gallops, murmurs, or rubs. Normal PMI, no JVD. No pulse deficits. Respiratory: Lungs have equal breath sounds bilaterally, clear to auscultation and percussion. No rales, rhonchi or wheezes noted. No increased work of breathing, no retractions or nasal flaring. Abdomen/GI: Soft, non-tender, with normal bowel sounds. No distension or tympany. No guarding or rebound. No evidence of tenderness throughout. Skin: Warm, dry with normal turgor. Normal color with no rashes, no lesions, and no evidence of cellulitis. MS/ Extremity: Pulses equal, no cyanosis. Neurovascular intact. Full, normal range of motion. Neuro: Awake and alert, GCS 15, oriented to person, place, time, and situation. Cranial nerves II-XII grossly intact. Motor strength 5/5 in all extremities. Sensory grossly intact. Cerebellar exam normal. Normal gait. Psych: Awake, alert, with orientation to person, place and time. Behavior, mood, and affect are within normal limits. 19:00 ECG was reviewed by the Attending Physician. Vital Signs: 17:12 BP 182 / 108; Pulse 78; Resp 18; Temp 97.4; Pulse Ox 100% on R/A; Weight 86.18 kg; ph 18:13 BP 141 / 93; Pulse 69; Resp 18; Pulse Ox 96% on R/A; mb9 18:30 BP 144 / 84; Pulse 82; Resp 18; Pulse Ox 100% on R/A; cm10 19:13 BP 158 / 90; Pulse 71; Resp 17 S; Pulse Ox 100% on R/A; ha1 20:10 BP 149 / 90; Pulse 86; Resp 17 S; Pulse Ox 100% on R/A; ha1 MDM: 17:03 Patient medically screened. rt 19:00 Differential diagnosis: CAD, ACS, pneumonia, pneumothorax. HEART Score: History: rt Moderately Suspicious (1), ECG: Non specific repolarization disturbance / LBTB / PM (1), Age: > 45 and < 65 years (1), Risk Factors: 1 or 2 risk factors (1), Troponin: < or = 1 x Normal Limit (0), Total Score = 4. The patient was given aspirin in the Emergency Department. Data reviewed: vital signs, nurses notes, lab test result(s), EKG, radiologic studies. Consideration of Admission/Observation Patient was admitted/placed on observation. Management of patient was discussed with the following: Hospitalist: Agrees to admit. I considered the following discharge prescriptions or medication management in the emergency department Medications were administered in the Emergency Department. See MAR. Independent interpretation of the following test(s) in the Emergency Department X-Ray: My interpretation is No consolidation seen on interpretation of x-ray images. Care significantly affected by the following chronic conditions: Hypertension. Counseling: I had a detailed discussion with the patient and/or guardian regarding the historical points, exam findings, and any diagnostic results supporting the discharge/admit diagnosis, lab results, radiology results, the need for further work-up and treatment in the hospital. 03/29 17:10 Order name: Basic Metabolic Panel; Complete Time: 18:16 rt 03/29 17:10 Order name: CBC with Diff; Complete Time: 18:16 rt 03/29 17:10 Order name: LFT's; Complete Time: 18:16 rt 03/29 17:10 Order name: Magnesium; Complete Time: 18:16 rt 03/29 17:10 Order name: Troponin HS; Complete Time: 18:16 rt 03/29 20:23 Order name: Lipid Profile [facility] 03/29 20:23 Order name: Lipid Profile [facility] 03/29 20:23 Order name: Troponin High Sensitivity [facility] 03/29 20:23 Order name: Troponin High Sensitivity [facility] 03/29 20:23 Order name: Troponin High Sensitivity [facility] 03/29 20:23 Order name: Troponin High Sensitivity [facility] 03/29 17:10 Order name: XRAY Chest (1 view); Complete Time: 17:51 rt 03/29 17:10 Order name: EKG; Complete Time: 17:10 rt 03/29 17:10 Order name: Cardiac monitoring; Complete Time: 17:16 rt 03/29 17:10 Order name: EKG - Nurse/Tech; Complete Time: 17:16 rt 03/29 17:10 Order name: IV Saline Lock; Complete Time: 17:39 rt 03/29 17:10 Order name: Labs collected and sent; Complete Time: 17:39 rt 03/29 17:10 Order name: O2 Per Protocol; Complete Time: 17:16 rt 03/29 17:10 Order name: O2 Sat Monitoring; Complete Time: 17:16 rt EC:00 Rate is 79 beats/min. Rhythm is regular, Normal Sinus Rhythm with No ectopy. QRS [place] rt is Normal. [place] interval is normal. QRS interval is normal. QT interval is normal. No Q waves. Clinical impression: NSR w/ Non-specific ST/T Changes. Administered Medications: 17:39 Drug: Nitroglycerin Sublingual 0.4 mg Sublingual once; every five minute if needed x3 cm10 Route: Sublingual; 17:39 Drug: Aspirin PO 325 mg PO once Route: PO; cm10 17:39 Drug: Acetaminophen PO 1000 mg PO once Route: PO; cm10 Disposition Summary: 03/29/23 18:55 Hospitalization Ordered Notes: Hospitalization Status: Observation rt Provider: Blanco Alonso rt Location: Telemetry/MedSurg (observation) rt Condition: Stable rt Problem: new rt Symptoms: have improved rt Bed/Room Type: Standard rt Room Assignment: 210(03/29/23 20:34) as6 Diagnosis - Chest pain, unspecified rt Forms: - Medication Reconciliation Form rt - SBAR form rt - Leadership Thank You Letter rt Signatures: Dispatcher [employer] Isabel Benavidez RN RN ph Keyur Alvarez RN RN as6 Tab Fuentes MD MD rt Ashanti Currie RN RN cm10 Corrections: (The following items were deleted from the chart) 17:16 17:14 PMHx: B shoulder repair-tendon; ph ph 17:16 17:14 PMHx: Depressive disorder; ph ph 20:34 18:55 rt as6
--- NOTE | 2023-03-29 18:55 | ER ---
Nurse's Notes [facility] Name: Makayla Tejada Age: 58 yrs Sex: Female : 1965 Arrival Date: 03/29/2023 Time: 16:39 Bed 19 Private MD: Diagnosis: Chest pain, unspecified Presentation: 03/29 17:12 Chief complaint: Patient states: Intermittent chest pressure since Wed, also report ph high BP w/ systolic 180s-190s, hx of hypertension, takes blood pressure medication nightly. Also c/o headache. Coronavirus screen: Vaccine status: Patient reports receiving the 2nd dose of the covid vaccine. Ebola Screen: No symptoms or risks identified at this time. Initial Sepsis Screen: Does the patient meet any 2 criteria? No. Patient's initial sepsis screen is negative. Does the patient have a suspected source of infection? No. Patient's initial sepsis screen is negative. Risk Assessment: Do you want to hurt yourself or someone else? Patient reports no desire to harm self or others. Onset of symptoms was March 29, 2023. 17:12 Method Of Arrival: Ambulatory ph 17:12 Acuity: MELISA 2 ph Triage Assessment: 17:16 General: Appears in no apparent distress. Behavior is calm, cooperative. Pain: ph Complains of pain in chest. Neuro: Level of Consciousness is awake, alert, obeys commands, Oriented to person, place, time, situation. Neuro: Reports headache. Cardiovascular: Reports chest pain. Historical: - Allergies: 17:14 No Known Allergies; ph - PMHx: 17:14 Migraines; Hypertensive disorder; Depressive disorder; ph - PSHx: 17:14 Cholecystectomy; Total abdominal hysterectomy; ph - Immunization history:: Adult Immunizations unknown. - Social history:: Smoking status: Patient denies any tobacco usage or history of. - Family history:: not pertinent. Screenin:[address] [facility] ED Fall Risk Assessment (Adult) History of falling in the last 3 months, cm10 including since admission No falls in past 3 months (0 pts) Confusion or Disorientation No (0 pts) Intoxicated or Sedated No (0 pts) Impaired Gait No (0 pts) Mobility Assist Device Used No (0 pt) Altered Elimination No (0 pt) Score/Fall Risk Level 0 - 2 = Low Risk Oriented to surroundings, Maintained a safe environment, Hourly rounding (assess needs \T\ fall precautionary measures) done. Abuse screen: Denies threats or abuse. Denies injuries from another. Nutritional screening: No deficits noted. Tuberculosis screening: No symptoms or risk factors identified. Assessment: 17:40 General: Appears in no apparent distress. comfortable, Behavior is calm, cooperative. cm10 Pain: Complains of pain in chest Pain does not radiate. Quality of pain is described as pressure, Pain began 2-3 days ago. Neuro: No deficits noted. Nelson Agitation-Sedation Scale (RASS): 0 - Alert and Calm Level of Consciousness is awake, alert, obeys commands, Oriented to person, place, time, situation. Cardiovascular: No deficits noted. Reports chest pain, since Wednesday Patient's skin is warm and dry. Rhythm is regular. Respiratory: No deficits noted. Airway is patent Respiratory effort is even, unlabored, Respiratory pattern is regular, symmetrical. GI: No deficits noted. No signs and/or symptoms were reported involving the gastrointestinal system. : No deficits noted. No signs and/or symptoms were reported regarding the genitourinary system. EENT: No deficits noted. No signs and/or symptoms were reported regarding the EENT system. Derm: No deficits noted. No signs and/or symptoms reported regarding the dermatologic system. Skin is intact, Skin is pink, warm \T\ dry. Musculoskeletal: No deficits noted. No signs and/or symptoms reported regarding the musculoskeletal system. Range of motion: intact in all extremities. 19:12 General: Appears comfortable, Behavior is calm, cooperative. Pain: Denies pain. Neuro: ha1 Level of Consciousness is awake, alert, obeys commands, Oriented to person, place, time, situation. Cardiovascular: Capillary refill < 3 seconds Patient's skin is warm and dry. Respiratory: Airway is patent Respiratory effort is even, unlabored, Respiratory pattern is regular, symmetrical. GI: No signs and/or symptoms were reported involving the gastrointestinal system. : No signs and/or symptoms were reported regarding the genitourinary system. Derm: Skin is pink, warm \T\ dry. Musculoskeletal: Circulation, motion, and sensation intact. Range of motion: intact in all extremities. 20:11 Reassessment: Patient and/or family updated on plan of care and expected duration. Pain ha1 level reassessed. Patient is alert, oriented x 3, equal unlabored respirations, skin warm/dry/pink. Patient denies pain at this time. Patient states feeling better. Patient states symptoms have improved. 21:10 Reassessment: Patient and/or family updated on plan of care and expected duration. Pain ha1 level reassessed. Patient is alert, oriented x 3, equal unlabored respirations, skin warm/dry/pink. 21:12 Reassessment: attempted to give report. ha1 21:31 Reassessment: report given to LINDA Morel. ha1 Vital Signs: 17:12 BP 182 / 108; Pulse 78; Resp 18; Temp 97.4; Pulse Ox 100% on R/A; Weight 86.18 kg; ph 18:13 BP 141 / 93; Pulse 69; Resp 18; Pulse Ox 96% on R/A; mb9 18:30 BP 144 / 84; Pulse 82; Resp 18; Pulse Ox 100% on R/A; cm10 19:13 BP 158 / 90; Pulse 71; Resp 17 S; Pulse Ox 100% on R/A; ha1 20:10 BP 149 / 90; Pulse 86; Resp 17 S; Pulse Ox 100% on R/A; ha1 ED Course: 16:52 Patient arrived in ED. mg5 16:58 Tab Fuentes MD is Attending Physician. rt 17:14 Triage completed. ph 17:16 Arm band placed on Patient placed in an exam room, on a stretcher, on manager monitoring, ph on pulse oximetry. EKG completed in triage. Results shown to MD. 17:40 Patient has correct armband on for positive identification. Placed in gown. Bed in low cm10 position. Call light in reach. Side rails up X2. Provided Education on: ER process and procedures. . Client placed on continuous cardiac and pulse oximetry monitoring. NIBP monitoring applied. 17:40 No provider procedures requiring assistance completed. Initial lab(s) drawn, by me, cm10 sent to lab. Inserted saline lock: 20 gauge in right antecubital area, using aseptic technique. Blood collected. Patient maintains SpO2 saturation greater than 95% on room air. 17:44 XRAY Chest (1 view) In Process Unspecified. EDMS 18:55 Blanco Alonso MD is Hospitalizing Provider. rt 21:02 Ama Corado RN is Primary Nurse. ha1 22:00 Patient admitted, IV remains in place. ha1 Administered Medications: 17:39 Drug: Nitroglycerin Sublingual 0.4 mg Sublingual once; every five minute if needed x3 cm10 Route: Sublingual; 17:39 Drug: Aspirin PO 325 mg PO once Route: PO; cm10 17:39 Drug: Acetaminophen PO 1000 mg PO once Route: PO; cm10 Medication: 17:40 VIS not applicable for this client. cm10 Outcome: 18:55 Decision to Hospitalize by Provider. rt 22:00 Patient left the ED. ha1 22:00 Admitted to Med/surg accompanied by tech, family with patient, via wheelchair, room 210, with chart, 22:00 Condition: stable 22:00 Discharge instructions given to patient, family, Instructed on the need for admit, Demonstrated understanding of instructions, Signatures: Dispatcher [employer] Isabel Benavidez RN RN Ama Corado RN RN ha1 Nanci Garcia RN RN mb9 Tab Fuentes MD MD rt Ashanti Currie RN RN cm10 Leslie Guerra mg5 Corrections: (The following items were deleted from the chart) 17:16 17:14 PMHx: B shoulder repair-tendon; ph ph 17:16 17:14 PMHx: Depressive disorder; ph ph 22:35 22:21 Condition: stable ha1 ha1 22:35 22:21 Admitted to Med/surg accompanied by tech, family with patient, via wheelchair, ha1 room 210, with chart, ha1 22:35 22:21 Discharge instructions given to patient, family, Instructed on the need for ha1 admit, Demonstrated understanding of instructions, 1 22:35 22:33 Patient left the ED. ha1 ha1
[2023-03-29] MEDS ORDERED: ONDANSETRON 4 MG/2 ML VIAL IV PRN (20:19)
[2023-03-29] MEDS ORDERED: ACETAMINOPHEN 325 MG TABLET PO PRN (20:19)
--- NOTE | 2023-03-29 20:22 | P.HP ---
Certification for Inpatient Patient admitted to: Observation With expected LOS: <2 Midnights Practitioner: I am a practitioner with admitting privileges, knowledge of patient current condition, hospital course, and medical plan of care. Services: Services provided to patient in accordance with Admission requirements found in Title 42 Section 412.3 of the Code of Federal Regulations Patient History Date of Service: 03/30/23 Reason for admission: Chest pain History of Present Illness: 58-year-old female patient with medical history significant for hypertension, hyperlipidemia, history of previous workup for chest pain who was evaluated for episode of chest pressure. She reported chest pressure rated 4 out of 10 in intensity without any radiation of pain into the arm or neck. She denies overt episode of nausea, vomiting, dizzy spells. She denies cough with fever chills or sputum production. Because of her prior history she was asked to be evaluated for workup of possible ACS as she had abnormal EKG. Allergies No Known Allergies Allergy (Verified 03/29/23 22:57) Home Medications: Gabapentin 1 cap PO BID 03/29/23 Losartan Potassium 25 mg PO DAILY 03/29/23 Sertraline [Zoloft] 25 mg PO DAILY 03/29/23 Review of Systems General: Unremarkable Eyes: Unremarkable ENT: Unremarkable Respiratory: Unremarkable Cardiovascular: Chest Pain Gastrointestinal: Unremarkable Genitourinary: Unremarkable Musculoskeletal: Unremarkable Integumentary: Unremarkable Physical Examination - Physical Exam General: Alert HEENT: Atraumatic, Normocephalic Neck: Supple Respiratory: Clear to auscultation bilaterally Cardiovascular: Regular rate/rhythm, Normal S1 S2 Gastrointestinal: Soft and benign Musculoskeletal: No swelling Neurological: Normal speech, Normal strength at 5/5 x4 extr - Studies Laboratory Data (last 24 hrs) 03/29/23 03/29/23 17:37 17:37 WBC 4.40 Hgb 12.8 Hct 36.8 Plt Count 155 Sodium 141 Potassium 3.7 BUN 14 Creatinine 0.80 Glucose 120 H Magnesium 2.2 Total Bilirubin 0.4 AST 20 ALT 32 Alkaline Phosphatase 106 Assessment and Plan - Plan Chest pain: Patient has concerns for possible ACS with chest pressure related issue. She did have prior episode of chest pain and had workup with no significant abnormal finding. Will continue workup with serial troponin, lipid panel and continue aspirin therapy. Will obtain echocardiogram to assess cardiac function. Will have cardiology evaluate for possibility of stress test/left heart cath. Hypertension: We will monitor vital signs per unit protocol and continue antihypertensive medication as prescribed outpatient Prophylaxis: Lovenox for DVT prophylaxis Code status: Full code. Disposition: We will workup her chest pain and discharge her when she is cleared by cardiology service. - Advance Directives Does patient have a Living Will: No Does patient have a Durable POA for Healthcare: No
[2023-03-29 23:30] VITALS: BMI 35.9
[2023-03-30 04:45] LABS: Troponin High Sensitivity 5.7 pg/mL (<58.9)
[2023-03-30] MEDS: ENOXAPARIN 40 MG/0.4 ML SQ SCH (08:33)
[2023-03-30] MEDS: ASPIRIN 81 MG CHEWABLE TABLET PO SCH (08:33)
[2023-03-30] MEDS ORDERED: NA CHLORIDE 0.9% 500 ML ONE (12:44)
[2023-03-30] MEDS ORDERED: VERAPAMIL HCL 10 MG/4 ML VIAL IV ONE (14:31)
[2023-03-30] MEDS ORDERED: LIDOCAINE 1% 20 ML MDV ONE (14:31)
[2023-03-30] MEDS ORDERED: FENTANYL CITR 100 MCG/2 ML ONE (14:31)
[2023-03-30] MEDS ORDERED: HEPA 1000U/500MLS 2,000 UNIT/1,000 ML BAG IV ONE (14:31)
[2023-03-30] MEDS ORDERED: HEPARIN 5000 UNIT/ML 1 ML VIAL ONE (14:32)
[2023-03-30] MEDS ORDERED: MIDAZOLAM HCL 2 MG/2 ML INJ ONE (14:32)
--- NOTE | 2023-03-30 14:43 | P.PN ---
Date of Service: 03/30/23 Subjective: No acute events overnight Continues to have some mild chest pressure ROS: 10 point ROS as noted above, otherwise negative Physical exam GEN: Alert, oriented, NAD HEENT: Normal conjunctiva, sclera anicteric CV: Regular rate and rhythm, no edema Pulm: Nonlabored respirations on room air ABD: Soft, nontender, nondistended MSK: No joint tenderness Integumentary: No rashes Neuro: Normal speech, normal affect Vitals reviewed Problem List Chest pain rule out ACS Troponins within normal limits, trended flat Continue to monitor on telemetry Evaluated by cardiology recommends cardiac catheterization Await further recommendations from cardiology Hypertension Continue home medications Monitor blood pressure during hospitalization, may require increase in blood pressure medication VTE: Lovenox Code: Full Dispo: 1 to 2 days Time Spent Managing Pts Care (In Minutes): 35
[2023-03-30] MEDS ORDERED: TICAGRELOR 90 MG TABLET PO ONE (15:18)
[2023-03-30] MEDS ORDERED: CLOPIDOGREL 75 MG TABLET ONE (15:19)
--- NOTE | 2023-03-30 17:12 | OP ---
Date of Procedure: 03/30/2023 Surgeon: SOHA HIGGINBOTHAM Procedures Performed: 1.Selective coronary angiogram. 2.Left heart catheterization. Indication: Unstable angina. Access: Right radial artery 6-Albanian closed with TR band. Complications: None. Bleeding: Less than 50 mL. Sedation: Total sedation time was 30 minutes. Description Of Procedure: After risks, benefits, alternatives were explained, patient agreed to proc edure, and signed informed consent. The patient was brought into the cardiac catheterization laborat ory, prepped and draped in the usual sterile fashion. Then, I accessed right radial artery using ped iatric micropuncture kit, placed a 6-Albanian Slender sheath and took 5-Albanian [place] 4.0 catheter into the aortic root, engaged left main, took standard views and then engaged the RCA and took standard vi ews and the catheter was pushed over the wire into the LV, measured the LVEDP. Pullback did not villa rd any gradient. Then, I removed the catheter and the sheath, placed TR band with good hemostasis. Findings: 1.Left main; large and normal. 2.LAD; large and normal. Normal diagonal branches with the left circumflex moderate size and normal and normal OM branches. 3.RCA; large and dominant and normal. 4.LVEDP normal between 8 and 10 mmHg. Conclusion: 1.Normal coronary arteries. 2.Normal LVEDP. Recommendations: Search for other causes of chest pain and medical management. /MODL Voice ID: [id number] Report ID: [id number]
--- NOTE | 2023-03-30 17:54 | CON ---
Date of Consultation: 03/30/2023 Reason For Consultation: Chest pain. History Of Present Illness: This is a 58-year-old female with a past medical history of hypertension , who presented to the emergency room because of chest pressure, radiates to her shoulder and left up per extremity, on and off, started with activities and then became at rest and then her blood pressur e was extremely elevated, so presented to the emergency room. First sets of cardiac enzymes were neg ative. The patient claimed having a normal stress test about 7 months ago, but this is a new symptom that started in the past 2-3 days. Does have also shortness of breath on exertion. No other compla ints. Past Medical History: Hypertension. Medications: Refer to reconciliation sheet for detailed list. Allergies: NO KNOWN DRUG ALLERGIES. Family History: No premature coronary artery disease or cancer. Social History: She does not smoke or drink. Does not use any drugs. Review of Systems: All systems reviewed and they were negative except as mentioned in the HPI. Physical Examination: Vital Signs: Reviewed. Head and Neck: Pupils are equal, reactive to light. Intact eye movements. No JVD. No cervical lym phadenopathy. Neck is supple. Thyroid is not enlarged. Lungs: Clear to auscultation bilaterally. No rhonchi, wheezing, or crackles. No accessory muscle u se. Heart: Regular rate and rhythm. No extra sounds. Abdomen: Soft, nontender. Bowel sounds positive. No organomegaly. No masses or hernia. No rigidi ty or rebound. Extremities: No edema, clubbing, or cyanosis. Intact pulses. Skin: No rash or nodule. Neurologic: Alert, awake, oriented x3. No acute focal deficits appreciated. Investigations: Labs were reviewed. Her BUN was 14, creatinine 0.8. Troponin was negative, and the chest x-ray showed mild CHF. Assessment And Recommendations: 1.Chest pain, that is becoming more frequent, new onset, suggestive of unstable angina with atypical features. Keep NPO. Plan for coronary angiogram and further recommendations to follow and obtain a n echocardiogram. Continue baby aspirin in the interim. 2.Hypertension. Blood pressure is much better. Continue current management. 3.Dyspnea on exertion, probably heart failure. Obtain an echo and coronary angiogram as outlined ab ove. VICENTE/JENNIE Voice ID: [id number] Report ID: [id number]
[2023-03-31 05:47] LABS: Potassium 3.8 mEq/L (3.5-5.1)
--- NOTE | 2023-03-31 07:03 | ECHO ---
HEIGHT: 5 ft 2 in WEIGHT: 196 lb 3.2 oz DATE OF STUDY: 03/30/[address]: Blanco Alonso MD 2-DIMENSIONAL: YES M.MODE: YES DOPPLER: YES COLOR FLOW: YES TDS: PORTABLE: YES DEFINITY: BUBBLE STUDY: DIAGNOSIS: CHEST PAIN CARDIAC HISTORY: CATHERIZATION: SURGERY: PROSTHETIC VALVE: PACEMAKER: MEASUREMENTS (cm) DIASTOLIC (NORMALS) SYSTOLIC (NORMALS) IVSd 1.1 (0.6-1.2) LA Diam 3.7 (1.9-4.0) LVEF 57% LVIDd 4.6 (3.5-5.7) LVIDs 3.2 (2.0-3.5) %FS 30% LVPWd 1.2 (0.6-1.2) Ao Diam 2.9 (2.0-3.7) 2 DIMENSIONAL ASSESSMENT: RIGHT ATRIUM: NORMAL LEFT ATRIUM: NORMAL RIGHT VENTRICLE: NORMAL LEFT VENTRICLE: NORMAL TRICUSPID VALVE: MILD TRICUSPID REGURGITATION MITRAL VALVE: MILD MITRAL REGURGITATION PULMONIC VALVE: MILD PULMONIC INSUFFICIENCY AORTIC VALVE: MILD AORTIC INSUFFICIENCY PERICARDIAL EFFUSION: NONE AORTIC ROOT: NORMAL LEFT VENTRICULAR WALL MOTION: NORMAL DOPPLER/COLOR FLOW: SEE BELOW COMMENTS: 1. NORMAL LEFT VENTRICULAR EJECTION FRACTION 55-60% 2. NORMAL WALL MOTION 3. NORMAL DIASTOLIC FUNCTION 4. MILD MITRAL REGURGITATION, TRICUSPID REGURGITATION, AORTIC INSUFFICIENCY, PULMONIC INSUFFICIENCY TECHNOLOGIST: AMAURY KNOWLES
--- NOTE | 2023-03-31 08:36 | RAD REPORT ---
EXAM DESCRIPTION: CT - Head Brain Wo Cont - 03/31/2023 8:22 am CLINICAL HISTORY: Binocular diplopia COMPARISON: Head Brain Wo Cont dated 10/21/2021; Head angio dated 10/21/2021 TECHNIQUE: Noncontrast head CT images were obtained without IV contrast. Multiplanar reformats were generated and reviewed. All CT scans are performed using dose optimization technique as appropriate and may include automated exposure control or mA/KV adjustment according to patient size. FINDINGS: No intracranial hemorrhage, mass, or edema. Midline structures are unremarkable. Normal ventricular caliber for age. Benson-white matter differentiation is preserved, without evidence of acute infarct. No abnormal extra- axial fluid collections. Mastoid air cells and visualized portions of the paranasal sinuses are clear. No acute bony findings. IMPRESSION: No evidence of an acute intracranial process.
--- NOTE | 2023-03-31 08:44 | RAD REPORT ---
EXAM DESCRIPTION: CT - Head angio - 03/31/2023 8:22 am CLINICAL HISTORY: Binocular diplopia COMPARISON: Head Brain Wo Cont dated 03/31/2023; Head Brain Wo Cont dated 10/21/2021; Neck Angio dated 03/31/2023 TECHNIQUE: Axial CT angiography images of the head was performed with multiplanar and maximum intens ity projection reconstructions. Images performed following intravenous administration of 100mL Isovue 370. All CT scans are performed using dose optimization technique as appropriate and may include automated exposure control or mA/KV adjustment according to patient size. FINDINGS: No evidence of large vessel occlusion. No evidence of aneurysm or dissection flap is detec della. No flow-limiting stenosis or vascular malformation identified. Antegrade flow is seen in the vertebral arteries. The vertebral arteries are codominant. The visualized dural venous sinuses are grossly patent. IMPRESSION: No evidence of large vessel occlusion or flow-limiting stenosis.
--- NOTE | 2023-03-31 08:45 | RAD REPORT ---
EXAM DESCRIPTION: CT - Neck Angio - 03/31/2023 8:22 am CLINICAL HISTORY: Binocular diplopia COMPARISON: Neck Angio dated 10/21/2021; Head C Spine Mpr Wo Con dated 09/13/2020; Neck Angio dated 05/08 TECHNIQUE: Axial CT angiography images of the head was performed with multiplanar and maximum intens ity projection reconstructions. Images performed following intravenous administration of 100mL Isovue 370. All CT scans are performed using dose optimization technique as appropriate and may include automated exposure control or mA/KV adjustment according to patient size. Quantification of carotid stenosis, if any, is performed according to NASCET criteria. FINDINGS: A left aortic arch is identified with normal three vessel configuration of the great vesse ls. No significant flow abnormality is seen of the common carotid bilaterally. No significant stenosis is identified involving the cervical segments of both internal carotid arteri es. Normal flow is seen within both vertebral arteries. IMPRESSION: No significant flow abnormality of the neck vessels is identified. CAROTID STENOSIS REFERENCE USING NASCET CRITERIA: % ICA stenosis = (1 - narrowest ICA diameter/diameter of distal cervical ICA) x 100. Mild - <50% stenosis. Moderate - 50-69% stenosis. Severe - 70-94% stenosis. Near occlusion - 95-99% stenosis. Occluded - 100% stenosis.
--- NOTE | 2023-03-31 09:20 | RAD REPORT ---
EXAM DESCRIPTION: MRI - Brain Wo Cont - 03/31/2023 9:03 am CLINICAL HISTORY: Binocular diplopia COMPARISON: Head CT and CT angiogram of the same day TECHNIQUE: Multiplanar multisequence MRI of the brain performed without IV contrast. FINDINGS: Motion artifact somewhat limits evaluation, despite attempts at repeat imaging. No evidence of acute infarct or other diffusion signal abnormality. No evidence of acute intracranial hemorrhage or abnormal extra-axial fluid collections. Ventricular caliber within normal for age. Midline structures are unremarkable. Scattered subcortical and deep white matter T2/FLAIR hyperintensities, nonspecific, but suggestive of chronic small vessel ischemic changes. No mass effect or midline shift. Major vascular flow voids are preserved. Mastoid air cells and paranasal sinuses are clear. IMPRESSION: No acute intracranial process. No evidence of ventriculomegaly or mass effect. Mild burden of nonspecific T2/FLAIR white matter hyperintensities, most suggestive of chronic small v essel ischemic changes.
[2023-03-31] MEDS: ENOXAPARIN 40 MG/0.4 ML SQ SCH (09:38)
[2023-03-31] MEDS: ASPIRIN 81 MG CHEWABLE TABLET PO SCH (09:38)
[2023-03-31] MEDS: CLOPIDOGREL 75 MG TABLET PO SCH (09:38)
--- NOTE | 2023-03-31 10:41 | P.PN ---
Date of Service: 03/31/23 Subjective: No further chest pain Reports binocular diplopia that developed after heart cath ROS: 10 point ROS as noted above, otherwise negative Physical exam GEN: Alert, oriented, NAD HEENT: Normal conjunctiva, sclera anicteric CV: Regular rate and rhythm, no edema Pulm: Nonlabored respirations on room air ABD: Soft, nontender, nondistended MSK: No joint tenderness Integumentary: No rashes Neuro: Normal speech, normal affect abnormal [id number], When both eyes are open , normal when either eye is closed Vitals reviewed Problem List Chest pain rule out ACS Troponins within normal limits, trended flat Continue to monitor on telemetry Cardiac catheterization revealed normal coronaries Cleared by cardiology Diplopia CT head without contrast, CT angiogram head and neck, MRI brain without contrast all negative for any acute findings Possibly adverse effect of Versed Continue monitor for resolution Discussed with neurology, continue aspirin, Plavix, statin in the meantime Other than binocular diplopia no other neurological deficits present Hypertension Continue home medications Monitor blood pressure during hospitalization, may require increase in blood pressure medication VTE: Lovenox Code: Full Dispo: 1 to 2 days Time Spent Managing Pts Care (In Minutes): 35
[2023-03-31] MEDS: GABAPENTIN 100 MG CAP PO SCH ×2 (13:35→20:38)
[2023-03-31] MEDS ORDERED: PANTOPRAZOLE 40MG TABLET PO ONE (15:44)
[2023-03-31] MEDS: NA CHLORIDE 0.9% 1,000 ML IV SCH (16:03)
--- NOTE | 2023-03-31 18:54 | PN ---
Date of Progress Note: 03/31/2023 Subjective: Seen by bedside, doing clinically well. No further chest pain. Review of Systems: No chest pain, shortness of breath, orthopnea, or cough. No nausea, vomiting, or diarrhea. All othe r systems were reviewed, they were negative. Objective: Vital Signs: Reviewed. Head and Neck: Pupils are equal, reactive to light. Intact eye movements. No JVD. No cervical lym phadenopathy. Neck is supple. Thyroid is not enlarged. Lungs: Clear to auscultation bilaterally. No rhonchi, wheezing, or crackles. No accessory muscle u se. Heart: Regular rate and rhythm. No extra sounds. Abdomen: Soft, nontender. Bowel sounds positive. No organomegaly. No masses or hernia. No rigidi ty or rebound. Extremities: No edema, clubbing, or cyanosis. Intact pulses. Skin: No rash or nodule. Neurologic: Alert, awake, oriented x3. No acute focal deficits appreciated. Investigations: Labs are reviewed. Assessment And Recommendations: 1.Chest pain, status post coronary angiogram. No coronary artery disease. No further workup is nee ded on this matter. 2.Aortic valve insufficiency, mild, continues to have monitoring on an outpatient basis. From Cardiology standpoint, patient can be released. Cardiology will sign off and to follow on outpa tient basis. /MODL Voice ID: [id number] Report ID: [id number]
--- NOTE | 2023-03-31 19:42 | CON ---
Reason For Consultation: Consultation was called because of diplopia. History Of Present Illness: Ms. Tejada is a 58-year-old patient with hypertension, who came to [facility] on 03/29/2023 with left-sided chest pain. It is noted that she had a biopsy of that area. However, when she came to [facility], they evaluated symptoms for myocardial infarcti on as the pain did radiate and was 4/10 and into the arm and neck. She did not have any associated o ther issues. She had an abnormal EKG. She was seen by Cardiology and had a cardiac catheterization which was normal. Following that, it is reported that she had double vision and if closing either ey e, double vision would resolve. She had a brain MRI with and without contrast that showed no acute i schemic or hemorrhagic change. The study was remarkable for mild small vessel ischemic disease. CT scan of the head prior to the MRI also showed no acute ischemic or hemorrhagic findings. CT angiogra m studies of her head and neck showed no significant flow abnormalities. No occlusions or abnormalit ies identified within the large vessels of the brain. Past Medical History: As noted above. Allergies: NO KNOWN DRUG ALLERGIES. Medications: At home, gabapentin 100 mg twice daily, losartan 25 mg daily, Zoloft 5 mg daily. Family History: Noncontributory. Surgical History: Breast biopsy. Review of Systems: Aside from the double vision, she denies any new fevers, chills, nausea, vomiting, myalgias, arthralg ias, rash, headache, weight change, or psychiatric complaints that are active. No genitourinary issu es or gastrointestinal issues. Physical Examination: Vital Signs: Blood pressure 136/71, pulse of 60, respiratory rate 16, temperature 97.9, oxygen satur ation 96% on room air. Weight 196 pounds, height 5 feet 2 inches, BMI 35.9. General: Ms. Tejada is resting comfortably in bed. HEENT: She is normocephalic, atraumatic. Sclerae anicteric. Oropharynx is pink and moist. Neck: Supple. Chest: Clear. Heart: Regular. Extremities: Show no significant clubbing, cyanosis, or edema. Neurological: Extraocular movements are intact; however, there is diplopia that resolved when she lo oks to the extreme right. The diplopia is also very subtle when looking straight ahead, but worsens by looking to the left. Covering the right eye when looking through the left, she does say the outer and slightly upper image may disappear and when covering the left eye while looking through the left , she is unclear which image disappears potentially the inner image. There is also some skew deviati on of the images. The findings suggestive of a right third nerve palsy and potentially even involvem ent of the left 6th nerve. Otherwise, all of her cranial nerves are intact. Motor examination in up per and lower extremities proximally and distally 5/5. Sensation intact over lower extremities. Lig ht touch pinprick temperature. Coordination intact in upper and lower extremities. Reflexes 2+ in u pper and lower extremities. Gait good stance, right arm swing. Laboratory Studies: Complete blood count with differential is completely normal. Basic metabolic pa nicole essentially unremarkable. Triglycerides 170 total, cholesterol 146, LDL 72, HDL 40. Liver funct ion studies are normal. Blood glucose did range 220. Assessment: Ms. Tejada is a 58-year-old patient with apparent diplopia following cardiac catheteriz ation. She reportedly received some Versed during hospitalization, but it is not clear that would ca use a focal cranial nerve deficit. She has history of diabetes mellitus and potentially has a diabet ic third nerve palsy on the right. Hemoglobin A1c may be done. She was shown the use of exercises t o help regain vision and may use an eye patch on either eye. She was instructed not to drive a car o r work on any activities that require significant hand-eye coordination such as operating heavy [x+1]i aaliyah. She was told that this finding since the MRI of the brain is unremarkable likely resolve, alth ough it may take days or weeks. Plan: 1.Continue aspirin, Plavix, folic acid, and statin high dose daily for at least 2 months. 2.More aggressive control of blood sugars and blood pressures which are in fairly good range, may be continued to be managed that way. She was shown again some exercises to help regain her conjugate v ision. She may be discharged home as her workup is complete to follow up with Dr. Mancera within th e month. ROOSEVELT/GILLIANL Voice ID: [id number] Report ID: [id number]
[2023-03-31] MEDS ORDERED: ATORVASTATIN 40 MG TAB PO SCH (21:00)
[2023-04-01 01:05] VITALS: O2SAT 93
[2023-04-01] MEDS: NA CHLORIDE 0.9% 1,000 ML IV SCH (01:44)
[2023-04-01 08:24] VITALS: BP 140/84; TEMP 97
[2023-04-01] MEDS: CLOPIDOGREL 75 MG TABLET PO SCH (08:47)
[2023-04-01] MEDS: ENOXAPARIN 40 MG/0.4 ML SQ SCH (08:47)
[2023-04-01] MEDS: GABAPENTIN 100 MG CAP PO SCH (08:47)
[2023-04-01] MEDS: ASPIRIN 81 MG CHEWABLE TABLET PO SCH (08:47)
--- NOTE | 2023-04-01 11:36 | P.DS ---
Admission Date: 03/31/23 Discharge Date: 04/01/23 Disposition: ROUTINE DISCHARGE Discharge Condition: GOOD Reason for Admission: Chest pain Consultations: Cardiology- Dr Matthews Neurology- Dr. Mancera Procedures: Heart cath 03/30 Brief History of Present Illness: 58-year-old female patient with medical history significant for hypertension, hyperlipidemia, history of previous workup for chest pain who was evaluated for episode of chest pressure. She reported chest pressure rated 4 out of 10 in intensity without any radiation of pain into the arm or neck. She denies overt episode of nausea, vomiting, dizzy spells. She denies cough with fever chills or sputum production. Because of her prior history she was asked to be evaluated for workup of possible ACS as she had abnormal EKG. Hospital Course: Problem list Chest pain-ACS ruled out Diplopia Hypertension 58-year-old female with history of hypertension was admitted to the hospital for chest pain rule out ACS. Her troponins trended flat and she was evaluated by cardiology who recommended coronary angiogram given her ongoing chest discomfort. Heart catheterization was performed on 03/30/2023 which showed normal coronary arteries and normal LVEDP, echocardiogram was also performed which showed normal left ventricular ejection fraction, normal wall motion. After returning from her heart catheterization patient had developed binocular diplopia. Head CT without contrast as well as CTA of the head and neck were obtained which were negative for acute findings or large vessel occlusion. Subsequent MRI of the brain without contrast was obtained which was negative for CVA. She was evaluated by neurology who recommends use of eyepatch alternating eyes throughout the day as her diplopia resolves when 1 eye is covered. It is thought that her diplopia may be result of the Versed she was given during heart catheterization versus TIA/CVA. Neurology does recommend treatment with aspirin, Plavix, statin at discharge. Diplopia steadily improving, patient given instructions for exercises to perform at home as well. Please do not drive or operate heavy machinery while experiencing diplopia. At discharge new prescriptions will be sent to the pharmacy for Plavix 75 mg daily Gabapentin 100 mg by mouth twice daily Protonix 40 mg daily Atorvastatin 40 mg to take at bedtime Also discussed taking aspirin 81 mg daily [id number] Patient instructed to follow-up with neurology in 2 to 3 weeks Also follow-up with primary care doctor in 1 to 2 weeks Vital Signs/Physical Exam: Temp Pulse Resp BP Pulse Ox 97.0 F 58 14 140/84 98 04/01/23 08:00 04/01/23 08:00 04/01/23 08:00 04/01/23 08:00 04/01/23 08:00 General: Alert, In no apparent distress, Oriented x3 HEENT: Atraumatic, PERRLA Neck: Supple, JVD not distended Respiratory: Clear to auscultation bilaterally, Normal air movement Cardiovascular: Regular rate/rhythm, Normal S1 S2 Gastrointestinal: Normal bowel sounds Musculoskeletal: No tenderness Integumentary: No rashes Neurological: Normal speech, Normal tone Laboratory Data at Discharge: WBC 4.40 thou/uL (4.3-10.9) 03/29/23 17:37 Hgb 12.8 g/dL (12.0-15.0) 03/29/23 17:37 Hct 36.8 % (36.0-45.0) 03/29/23 17:37 Plt Count 155 thou/uL (152-406) 03/29/23 17:37 Sodium 140 mEq/L (136-145) 03/31/23 04:59 Potassium 3.8 mEq/L (3.5-5.1) 03/31/23 04:59 BUN 15 mg/dL (7-18) 03/31/23 04:59 Creatinine 0.73 mg/dL (0.55-1.02) 03/31/23 04:59 Glucose 91 mg/dL (74-106) 03/31/23 04:59 Magnesium 2.2 mg/dL (1.6-2.4) 03/29/23 17:37 Total Bilirubin 0.4 mg/dL (0.2-1.0) 03/29/23 17:37 AST 20 U/L (15-37) 03/29/23 17:37 ALT 32 U/L (13-56) 03/29/23 17:37 Alkaline Phosphatase 106 U/L (45-117) 03/29/23 17:37 Triglycerides 170 mg/dL (<150) H 03/30/23 04:15 Cholesterol 146 mg/dL (<200) 03/30/23 04:15 HDL Cholesterol 40 mg/dL (40-60) 03/30/23 04:15 Cholesterol/HDL Ratio 3.65 03/30/23 04:15 Home Medications: Gabapentin 1 cap PO BID 03/29/23 Losartan Potassium 25 mg PO DAILY 03/29/23 Sertraline [Zoloft*] 25 mg PO DAILY 03/29/23 Atorvastatin Calcium [Lipitor] 40 mg PO BEDTIME #30 tab 04/01/23 Clopidogrel Bisulfate [Plavix] 75 mg PO DAILY #30 tab 04/01/23 Gabapentin 100 mg PO BID #60 cap 04/01/23 Pantoprazole [Protonix Tab] 40 mg PO DAILY #30 tab 04/01/23 New Medications: Gabapentin 100 mg PO BID #60 cap Atorvastatin Calcium [Lipitor] 40 mg PO BEDTIME #30 tab Clopidogrel Bisulfate [Plavix] 75 mg PO DAILY #30 tab Pantoprazole [Protonix Tab] 40 mg PO DAILY #30 tab Physician Discharge Instructions: 58-year-old female with history of hypertension was admitted to the hospital for chest pain rule out ACS. Her troponins trended flat and she was evaluated by cardiology who recommended coronary angiogram given her ongoing chest discomfort. Heart catheterization was performed on 03/30/2023 which showed normal coronary arteries and normal LVEDP, echocardiogram was also performed which showed normal left ventricular ejection fraction, normal wall motion. After returning from her heart catheterization patient had developed binocular diplopia. Head CT without contrast as well as CTA of the head and neck were obtained which were negative for acute findings or large vessel occlusion. Subsequent MRI of the brain without contrast was obtained which was negative for CVA. She was evaluated by neurology who recommends use of eyepatch alternating eyes throughout the day as her diplopia resolves when 1 eye is covered. It is thought that her diplopia may be result of the Versed she was given during heart catheterization versus TIA/CVA. Neurology does recommend treatment with aspirin, Plavix, statin at discharge. Diplopia steadily improving, patient given instructions for exercises to perform at home as well. Please do not drive or operate heavy machinery while experiencing diplopia. At discharge new prescriptions will be sent to the pharmacy for Plavix 75 mg daily Gabapentin 100 mg by mouth twice daily Protonix 40 mg daily Atorvastatin 40 mg to take at bedtime Also discussed taking aspirin 81 mg daily [id number] Patient instructed to follow-up with neurology in 2 to 3 weeks Also follow-up with primary care doctor in 1 to 2 weeks Diet: AHA Activity: Ad jim Followup: Mathew Andrew DO [Primary Care Provider] - 1-2 Weeks Time spent managing pt's care (in minutes): 30
--- NOTE | 2023-04-05 17:22 | EKG ---
Test Date: 2023-03-29 Test Time: 17:05:36 Supervisor Plastics: PH MEASUREMENT RESULTS: Intervals: Rate: 79 SD: 102 QRSD: 84 QT: 340 QTc: 389 Plain: P: 117 SD: 102 QRS: 33 T: 123 INTERPRETIVE STATEMENTS: Sinus rhythm with short SD Nonspecific T wave abnormality Abnormal ECG Compared to ECG 10/21/2021 21:43:29 Short SD interval now present T-wave abnormality still present Electronically Signed On 04-05-23 17:00:02 [employer] by Gerson Matthews
== END 2023-04-01 10:26 | disposition home or self-care (01) | DRG 287 ==
LOC: ER 16:39 → 2ND 20:47 → OBSVTOIN 03-31 15:34
PROVIDERS: ADMIT Internal Medicine Nephrology; ATTEND Hospitalist
PROC: 4A023N7 Measurement of Cardiac Sampling and Pressure, Left Heart, Percutaneous Approach (ICD-10-PCS; principal; 2023-03-30)
PROC: B2111ZZ Fluoroscopy of Multiple Coronary Arteries using Low Osmolar Contrast (ICD-10-PCS; 2023-03-30)
DX: I16.0 Hypertensive urgency (principal); I10 Essential (primary) hypertension; E78.5 Hyperlipidemia, unspecified; I35.1 Nonrheumatic aortic (valve) insufficiency; H53.2 Diplopia; T42.4X5A Adverse effect of benzodiazepines, initial encounter; Z79.02 Long term (current) use of antithrombotics/antiplatelets; Z90.49 Acquired absence of other specified parts of digestive tract; Z79.899 Other long term (current) drug therapy; Z90.710 Acquired absence of both cervix and uterus
CPT/HCPCS: 36415; 70450; 70496; 70498; 70551; 71045; 76937; 80048; 80061; 80076; 83735; 84484; 85025; 93005; 93306; 93458; 99152; 99153; 99285; C1893; G0378; J1644; J1650; J2001; J2250; J3010; J7030; J7040; Q9966; Q9967

== ENCOUNTER 2024-02-29 23:33 | Emergency (ER) | payer OTHER ==
[2024-02-29] MEDS ORDERED: LIDOCAINE 1% MPF 5 ML VIAL ONE (23:58)
--- NOTE | 2024-03-01 00:48 | ER ---
Nurse's Notes [facility] Name: Makayla Tejada Age: 58 yrs Sex: Female : 1965 Arrival Date: 02/29/2024 Time: 23:33 Bed 11 Private MD: Diagnosis: Laceration without foreign body of left hand;Puncture wound with foreign body of left hand, initial encounter Presentation: 02/28 23:39 Chief complaint: Patient states: tripped and cut it on some plates. Coronavirus screen: vc1 Client denies travel out of the [place] in the last 14 days. At this time, the client does not indicate any symptoms associated with coronavirus-19. Ebola Screen: Patient negative for fever greater than or equal to 101.5 degrees Fahrenheit, and additional compatible Ebola Virus Disease symptoms Patient denies exposure to infectious person. Patient denies travel to an Ebola-affected area in the 21 days before illness onset. No symptoms or risks identified at this time. Complicating Factors: There are no complicating factors for this patient. Initial Sepsis Screen: Does the patient meet any 2 criteria? No. Patient's initial sepsis screen is negative. Does the patient have a suspected source of infection? No. Patient's initial sepsis screen is negative. Risk Assessment: Do you want to hurt yourself or someone else? Patient reports no desire to harm self or others. Onset of symptoms was February 29, 2024 at 23:20. 23:39 Method Of Arrival: Ambulatory vc1 23:39 Acuity: MELISA 4 vc1 Triage Assessment: 23:41 General: Appears in no apparent distress. Behavior is calm, cooperative, appropriate vc1 for age. Pain: Complains of pain in left hand Pain does not radiate. Pain currently is 5 out of 10 on a pain scale. Also complains of no other associated symptoms. EENT: No deficits noted. No signs and/or symptoms were reported regarding the EENT system. Neuro: Level of Consciousness is awake, alert, obeys commands, Oriented to person, place, time, situation, Appropriate for age. Cardiovascular: Capillary refill < 3 seconds Patient's skin is warm and dry. Respiratory: Airway is patent Respiratory effort is even, unlabored, Respiratory pattern is regular, symmetrical. GI: No deficits noted. No signs and/or symptoms were reported involving the gastrointestinal system. : No deficits noted. No signs and/or symptoms were reported regarding the genitourinary system. Derm: Skin is intact, is healthy with good turgor, Skin is dry, Skin is normal, Skin temperature is warm. Musculoskeletal: Circulation, motion, and sensation intact. Range of motion: intact in all extremities. Injury Description: Laceration sustained to left hand. Historical: - Allergies: 23:40 No Known Allergies; vc1 - PMHx: 23:40 depressive disorder; Hypertensive disorder; Migraines; vc1 - PSHx: 23:40 Cholecystectomy; Total abdominal hysterectomy; vc1 - Immunization history:: Client reports receiving the 2nd dose of the Covid vaccine, Last tetanus immunization: up to date. - Infectious Disease History:: Denies. - Social history:: Smoking status: Patient denies any tobacco usage or history of. Screenin:[facility] ED Fall Risk Assessment (Adult) History of falling in the last 3 months, vc1 including since admission Yes- single mechanical fall (1 pt) Confusion or Disorientation No (0 pts) Intoxicated or Sedated No (0 pts) Impaired Gait No (0 pts) Mobility Assist Device Used No (0 pt) Altered Elimination No (0 pt) Score/Fall Risk Level 0 - 2 = Low Risk Oriented to surroundings, Maintained a safe environment, Educated pt \T\ family on fall prevention, incl call for assistance when getting out of bed. Abuse screen: Denies threats or abuse. Nutritional screening: No deficits noted. Tuberculosis screening: No symptoms or risk factors identified. Vital Signs: 23:43 BP 196 / 118; Pulse 76; Resp 18; Temp 97; Pulse Ox 98% ; Pain 5/10; vc1 03/01 00:45 BP 166 / 99; Pulse 60; Resp 16; Pulse Ox 100% ; vc1 02/28 23:43 Pain Scale: Adult vc1 ED Course: 02/28 23:34 Patient arrived in ED. im 23:37 [facility] Clement[facility]C [facility] kb 23:37 Kirk Burr MD is Attending Physician. kb 23:40 Triage completed. vc1 23:40 Arm band placed on right wrist. vc1 23:40 Patient has correct armband on for positive identification. Bed in low position. Call vc1 light in reach. 03/01 00:55 Provided Education on: wound care, suture removal. vc1 00:55 No provider procedures requiring assistance completed. Patient did not have IV access vc1 during this emergency room visit. Administered Medications: 00:55 Drug: Lidocaine Infiltration (1 %) 1 vials 5 ml Infiltration once; to bedside {Note: vc1 administered by Elen Clemente NP.} Volume: 5 ml; Route: Infiltration; Site: affected area; Medication: 02/28 23:41 VIS not applicable for this client. vc1 Outcome: 03/01 00:48 Discharge ordered by . elise 00:55 Patient left the ED. vc1 00:55 Discharged to home ambulatory, with significant other, 00:55 Condition: good 00:55 Discharge instructions given to patient, Instructed on discharge instructions, follow up and referral plans. wound care, Demonstrated understanding of instructions, follow-up care, wound care, Signatures: Elen Clemente, LUBNA DAMONP-Mary Amin RN RN vc1 Anitha Serrano Corrections: (The following items were deleted from the chart) 01:48 01:46 Condition: good vc1 vc1 01:48 01:46 Discharged to home ambulatory, with significant other, vc1 vc1 01:48 01:46 Discharge instructions given to patient, Instructed on discharge instructions, vc1 follow up and referral plans. wound care, Demonstrated understanding of instructions, follow-up care, wound care, vc1 01:48 01:47 Patient left the ED. vc1 vc1
--- NOTE | 2024-03-01 00:49 | EDPHYS ---
Physician Documentation [facility] Name: Makayla Tejada Age: 58 yrs Sex: Female : 1965 Arrival Date: 02/29/2024 Time: 23:33 Bed 11 Private MD: ED Physician Kirk Burr HPI: 02/28 23:51 This 58 yrs old Female presents to ER via Ambulatory with complaints of kb Laceration To Hand. 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 Pt states she was carrying crystal plates, tripped and the plates broke cutting her hand. Denies any other injuries. Historical: - Allergies: 23:40 No Known Allergies; vc1 - PMHx: 23:40 depressive disorder; Hypertensive disorder; Migraines; vc1 - PSHx: 23:40 Cholecystectomy; Total abdominal hysterectomy; vc1 - Immunization history:: Client reports receiving the 2nd dose of the Covid vaccine, Last tetanus immunization: up to date. - Infectious Disease History:: Denies. - Social history:: Smoking status: Patient denies any tobacco usage or history of. ROS: 23:50 Constitutional: As per HPI kb Exam: 23:50 Constitutional: This is a well developed, well nourished patient who is awake, alert, kb and in no acute distress. Head/Face: Normocephalic, atraumatic. ENT: Moist Mucous membranes Cardiovascular: Regular rate Respiratory: Respirations even and unlabored. No increased work of breathing. Talking in full sentences MS/ Extremity: Pulses equal, no cyanosis. Neurovascular intact. Full, normal range of motion. Neuro: Awake and alert, GCS 15, oriented to person, place, time, and situation. 23:50 Skin: injury, laceration(s), the wound is approximately 3 cm(s), of the palm of left hand, that can be described as clean, no foreign body, linear, with mild bleeding, Vital Signs: 23:43 BP 196 / 118; Pulse 76; Resp 18; Temp 97; Pulse Ox 98% ; Pain 5/10; vc1 03/01 00:45 BP 166 / 99; Pulse 60; Resp 16; Pulse Ox 100% ; vc1 02/28 23:43 Pain Scale: Adult vc1 Procedures: 00:46 Foreign Body Removal: a fragment of glass, from the palm of left hand, by using alligator clamps, Dressinx4s were used to dress the wound, The patient tolerated the removal well. Laceration: 00:46 Wound Repair of 3cm ( 1.2in ) subcutaneous laceration to palm of left hand. Linear kb shaped.. Distal neuro/vascular/tendon intact. Anesthesia: Wound infiltrated with 3 mls of 1% lidocaine. Wound prep: Extensive cleansing with hibiclenz by me, Wound irrigation with saline by me, Wound explored moderately. Skin closed with 5 5-0 Prolene using simple sutures and sterile technique. Dressed with 4x4's. Patient tolerated well. MDM: 02/28 23:37 Medical Screening Exam initiated kb 23:50 Differential diagnosis: superficial laceration, tendon injury, vascular injury. Data kb reviewed: vital signs, nurses notes. Test considered but Not performed: X-ray: hand xray considered but wound is superficial, pt has no bony tenderness and full ROM. Historians other than the Patient: Spouse/Significant Other: sig other. Counseling: I had a detailed discussion with the patient and/or guardian regarding the historical points, exam findings, and any diagnostic results supporting the discharge/admit diagnosis, the need for outpatient follow up, a family practitioner, to return to the emergency department if symptoms worsen or persist or if there are any questions or concerns that arise at home. 02/28 23:50 Order name: Dressing - Wound; Complete Time: 00:55 kb 02/28 23:50 Order name: Gloves, Sterile; Complete Time: 00:55 kb 02/28 23:50 Order name: Prolene, Sutures; Complete Time: 00:55 kb 02/28 23:50 Order name: Setup Suture Tray; Complete Time: 00:16 kb Administered Medications: 03/01 00:55 Drug: Lidocaine Infiltration (1 %) 1 vials 5 ml Infiltration once; to bedside {Note: vc1 administered by Elen Clemente NP.} Volume: 5 ml; Route: Infiltration; Site: affected area; Disposition: 03:49 Co-signature as Attending Physician, Kirk Burr MD I agree with the assessment sp4 and plan of care. I reviewed the patient's care provided by the Advanced Practice Provider and agree with the diagnosis and treatment plan. Disposition Summary: 03/01/24 00:48 Discharge Ordered Notes: Location: Home kb Condition: Stable kb Diagnosis - Laceration without foreign body of left hand kb - Puncture wound with foreign body of left hand, initial encounter kb Followup: kb - With: Emergency Department - When: As needed - Reason: Worsening of condition Followup: kb - With: Private Physician - When: 2 - 3 days - Reason: Recheck today's complaints, Continuance of care, Re-evaluation by your physician Discharge Instructions: - Discharge Summary Sheet kb - Laceration Care, Adult, [id number] kb - Puncture Wound, [id number] kb Forms: - Work release form kb - Medication Reconciliation Form kb - Antibiotic Education kb - Prescription Opioid Use kb - Patient Portal Instructions kb - Leadership Thank You Letter kb Signatures: Elen Clemente FNP-C FNP-Ckb Calcote, Vanessa RN RN vc1 Kirk Burr MD MD sp4
[2024-03-01 01:52] VITALS: TEMP 97
[2024-03-01 01:53] VITALS: BP 166/99; O2SAT 100
== END 2024-03-01 01:47 | disposition home or self-care (01) ==
LOC: ER 23:33
PROC: 0JQK0ZZ Repair Left Hand Subcutaneous Tissue and Fascia, Open Approach (ICD-10-PCS; principal; 2024-03-01)
PROC: 0HCGXZZ Extirpation of Matter from Left Hand Skin, External Approach (ICD-10-PCS; 2024-03-01)
DX: S61.412A Laceration without foreign body of left hand, initial encounter (principal); S61.422A Laceration with foreign body of left hand, initial encounter; I10 Essential (primary) hypertension; F32.A Depression, unspecified; G43.909 Migraine, unspecified, not intractable, without status migrainosus; W01.110A Fall on same level from slipping, tripping and stumbling with subsequent striking against sharp glass, initial encounter; Y93.89 Activity, other specified; Y92.010 Kitchen of single-family (private) house as the place of occurrence of the external cause
CPT/HCPCS: 12002; 10120; 99283; 12042; J2003

== ENCOUNTER 2024-12-14 22:12 | Emergency (ER) | payer OTHER ==
[2024-12-14] MEDS ORDERED: NA CHLORIDE 0.9% 1,000 ML ONE (23:00)
[2024-12-14] MEDS ORDERED: MORPHINE 4 MG/ML SYR ONE (23:00)
[2024-12-14] MEDS ORDERED: ONDANSETRON 4 MG/2 ML VIAL ONE (23:00)
[2024-12-14 23:27] LABS: Absolute Lymphocytes (CBC) 2.1 K/uL (0.7-4.9); Hematocrit 42.0 % (36.0-45.0); Hemoglobin 14.3 g/dL (12.0-15.0); MCH 28.2 pg (27.0-35.0); MCHC 34.0 g/dL (32.0-36.0); MCV 82.7 fL (80-100); MPV 9.1 fL (7.6-11.3); Nucleated RBC Absolute Count 0.0 (0-0); Nucleated Red Blood Cells % 0.0 % (0-0); RBC Red Blood Cell Count 5.08 M/uL (3.86-4.86); White Blood Count 8.00 thou/uL (4.3-10.9)
[2024-12-14 23:38] LABS: ALT/SGPT 28.0 U/L (13-56); AST/SGOT 11.0 U/L (15-37); Albumin 3.7 g/dL (3.4-5.0); Albumin/Globulin Ratio 1.0 (1.1-1.8); Alkaline Phosphatase 102.0 U/L (45-117); Anion Gap 9.3 mEq/L (5.0-15.0); BUN Blood Urea Nitrogen 20.0 mg/dL (7-18); Globulin 3.6 g/dL (2.3-3.5); Glucose Level 106.0 mg/dL (74-106); Lipase 215.0 U/L (13-75); Potassium 3.3 mEq/L (3.5-5.1)
[2024-12-15] MEDS ORDERED: MORPHINE 4 MG/ML SYR ONE (00:05)
[2024-12-15] MEDS ORDERED: METOCLOPRAMIDE 10 MG/2mL INJ ONE (00:05)
--- NOTE | 2024-12-15 01:40 | RAD REPORT ---
EXAM DESCRIPTION: Abdomen Pelvis W Contrast RadLex: CT ABDOMEN PELVIS WITH IV CONTRAST CLINICAL HISTORY: 59 years Female; ABD PAIN; IV ONLY Bed Name: 13 TECHNIQUE: CT of the abdomen and pelvis [with] intravenous contrast. All CT scans at this facility use dose modulation, iterative reconstruction, and/or weight based dosi ng when appropriate to reduce radiation dose to as low as reasonably achievable. COMPARISON: None. FINDINGS: Lower thorax: Bibasilar atelectasis. Abdomen: Stomach: Within normal limits Liver: No focal lesions. Post cholecystectomy prominence of the biliary ductal system. Gallbladder: Surgically absent. Pancreas: Within normal limits Spleen: Within normal limits Right kidney: No hydronephrosis. Subcentimeter hypodensity, too small to characterize. Left kidney: No hydronephrosis. Subcentimeter hypodensity, too small to characterize. Adrenal glands: Within normal limits Vascular structures: Within normal limits Nodes: No lymphadenopathy by size criteria Pelvis: Small bowel: No significant distention. Appendix: Within normal limits Colon: Sigmoid colonic diverticulosis with wall thickening and pericolonic stranding. Peritoneum: No free intraperitoneal fluid or air. Bones: No acute bone findings. Bladder: Unremarkable. Reproductive organs: No acute findings. IMPRESSION: Acute sigmoid colonic diverticulitis. No free air. No focal fluid collection. Electronically signed by: Carl Kirk MD 12/15/2024 01:24 AM CDT TYG Due to temporary technical issues with the PACS/[employer] reporting system, reports are being dani d by the in-house radiologist without review as a courtesy to ensure prompt reporting the interpreting radiologist is fully responsible for the content of the report. Transcribed Date/Time: 12/15/2024 1:39 AM
[2024-12-15] MEDS ORDERED: POTASSIUM 25 MEQ EFFERV TAB ONE (01:48)
[2024-12-15] MEDS ORDERED: PIPERACIL/TAZO 3.375 GM VIAL IV ONE (01:49)
[2024-12-15] MEDS ORDERED: NA CHLORIDE 0.9% 100 ML ONE (01:49)
[2024-12-15] MEDS ORDERED: HYDROCODONE/APAP 7.5/325 MG TAB ONE (01:49)
--- NOTE | 2024-12-15 02:01 | EDPHYS ---
Physician Documentation [facility] Name: Makayla Tejada Age: 59 yrs Sex: Female : 1965 Arrival Date: 12/14/2024 Time: 22:12 Bed 13 Private MD: ED Physician Khris Denis HPI: 12/14 23:00 This 59 yrs old Female presents to ER via Ambulatory with complaints of cp Abdominal Pain, Nausea/Vomiting/Diarrhea, Fever, Bloody Stools. 23:00 The patient presents with abdominal pain. Onset: The symptoms/episode began/occurred 4 cp day(s) ago. 23:00 Associated signs and symptoms: Pertinent positives: diarrhea, fever, blood and mucous cp in stool, Pertinent negatives: chest pain, constipation, vomiting. The symptoms are described as waxing/waning. Severity of pain: in the emergency department the pain is unchanged despite home interventions. Historical: - Allergies: 22:33 No Known Allergies; jj7 - PMHx: 22:33 depressive disorder; Hypertensive disorder; Migraines; jj7 - PSHx: 22:33 Cholecystectomy; Total abdominal hysterectomy; jj7 - Immunization history:: Adult Immunizations up to date. - Infectious Disease History:: Denies. - Social history:: Smoking status: Patient denies any tobacco usage or history of. Patient uses alcohol, only on a social basis. Patient/guardian denies using street drugs, IV drugs. ROS: 23:05 Cardiovascular: Negative for chest pain, palpitations, cp 23:05 Constitutional: Positive for fever, Negative for poor PO intake, cp 23:05 Eyes: Negative for injury, pain, redness, and discharge, cp 23:05 ENT: Negative for drainage from ear(s), ear pain, sore throat, difficulty swallowing, difficulty handling secretions, 23:05 Respiratory: Negative for cough, shortness of breath, wheezing, 23:05 Abdomen/GI: Positive for abdominal pain, diarrhea, blood and mucous in stool, Negative for vomiting, 23:05 Neuro: Negative for altered mental status, 23:05 All other systems are negative, Exam: 23:05 Head/Face: Normocephalic, atraumatic. cp 23:05 Constitutional: The patient appears in no acute distress, alert, awake, non-diaphoretic, non-toxic, well developed, well nourished, uncomfortable, 23:05 Eyes: Periorbital structures: appear normal, Conjunctiva: normal, no exudate, no injection, Sclera: no appreciated abnormality, Lids and lashes: appear normal, bilaterally, 23:05 ENT: External ear(s): are unremarkable, Nose: is normal, Mouth: Lips: moist, Oral mucosa: moist, Posterior pharynx: Airway: no evidence of obstruction, patent, 23:05 Chest/axilla: Inspection: normal, 23:05 Cardiovascular: Rate: normal, Rhythm: regular, Edema: is not appreciated, JVD: is not appreciated, 23:05 Respiratory: the patient does not display signs of respiratory distress, Respirations: normal, no use of accessory muscles, no retractions, labored breathing, is not present, Breath sounds: are clear throughout, no decreased breath sounds, no stridor, no wheezing, 23:05 Abdomen/GI: Inspection: abdomen appears normal, Bowel sounds: active, all quadrants, Palpation: soft, in all quadrants, moderate abdominal tenderness, in all quadrants, 23:05 Back: CVA tenderness, is absent, 23:05 Neuro: Orientation: to person, place \T\ time. Mentation: is normal, Motor: moves all fours, strength is normal, Sensation: is normal, Vital Signs: 22:27 BP 155 / 108; Pulse 66; Resp 20; Temp 97.6; Pulse Ox 100% ; Weight 92.08 kg; Height 5 jj7 ft. 2 in. ; Pain 7/10; 23:00 BP 169 / 112; Pulse 61; Resp 18; Pulse Ox 96% ; rg5 10 00:00 BP 170 / 109; Pulse 56; Resp 18; Pulse Ox 96% ; cp4 01:58 BP 171 / 72; Pulse 58; Resp 18; Pulse Ox 97% ; cp4 03:00 BP 103 / 68; Pulse 72; Resp 18; Pulse Ox 100% ; cp4 12/14 22:27 Body Mass Index 37.13 (92.08 kg, 157.48 cm) [facility] 12/14 22:27 Pain Scale: Adult [facility] MDM: 12/14 22:36 Medical Screening Exam initiated cp 12/14 22:45 Order name: CBC with Diff; Complete Time: 23:57 cp 12/14 22:45 Order name: CMP; Complete Time: 23:57 cp 12/15 01:54 Interpretation: Normal except: K 3.3; CL 109; BUN 20; AST 11; GLOB 3.6; A/G 1.0. cp 12/14 22:45 Order name: Lipase; Complete Time: 23:57 cp 12/14 22:49 Order name: Lactate w/ 2H reflex if indic.; Complete Time: 01:41 cp 12/14 23:33 Order name: CT Abd/Pelvis - IV Contrast Only; Complete Time: 01:41 cp 12/14 23:33 Order name: XRAY Chest (1 view) cp 12/14 22:45 Order name: IV Saline Lock; Complete Time: 23:08 cp 12/14 22:45 Order name: Labs collected and sent; Complete Time: 23:08 cp Administered Medications: 23:08 Drug: NS 0.9% IV 1000 ml IV at 1000 ml once; to be given as a bolus over 60 minutes rg5 Route: IV; Rate: 1000 ml; Site: right antecubital; 12/15 03:03 Follow up: IV Status: Completed infusion 4 12/14 23:08 Drug: Ondansetron IVP 4 mg IVP once; over 2 minutes Route: IVP; Site: right antecubital;rg5 23:30 Follow up: Response: No adverse reaction 5 23:08 Drug: morphine IVP or IV 4 mg IVP once over 4 mins Route: IVP; Infused Over: 4 mins; rg5 Site: right antecubital; 12/15 00:12 Follow up: Response: No adverse reaction; Pain is decreased 5 00:16 Drug: metoCLOPramide IVP 10 mg IVP once; over 1 to 2 minutes Route: IVP; Site: right rg5 antecubital; 01:57 Follow up: Response: No adverse reaction 4 00:17 Drug: morphine IVP or IV 4 mg IVP once over 4 mins Route: IVP; Infused Over: 4 mins; rg5 Site: right antecubital; 01:57 Follow up: Response: No adverse reaction cp4 01:57 Drug: Potassium PO Effervescent Tablet 50 mEq PO once; dissolve in 4 ounces of water or cp4 juice Route: PO; 02:05 Follow up: Response: No adverse reaction 4 01:57 Drug: Hydrocodone-Acetaminophen PO (7.5 mg-325 mg) 1 tabs PO once; RASS on ADMIN: cp4 Combtv4, Very Agttd3, Agttd2, Rstlss1, AlertClm0, Drwsy-1, Lt Sdtn-2, Mod Sdtn-3, Dp Sdtn-4, UnArsble-5 Route: PO; 02:05 Follow up: Response: No adverse reaction; Pain is decreased cp4 01:57 Drug: metroNIDAZOLE PO 500 mg PO once Route: PO; cp4 02:05 Follow up: Response: No adverse reaction cp4 01:57 Drug: Piperacillin-Tazobactam IVPB 3.375 grams IVPB once over 60 mins; (mix in NS 100 cp4 mL) Route: IVPB; Infused Over: 60 mins; Site: right antecubital; 03:02 Follow up: Response: No adverse reaction; IV Status: Completed infusion cp4 Disposition: 03:06 Co-signature as Attending Physician, Khris Denis DO I reviewed the patient's care tt7 provided by the Advanced Practice Provider and agree with the diagnosis and treatment plan. Disposition Summary: 12/15/24 02:29 Discharge Ordered Notes: Location: Home(12/15/24 02:29) cp Problem: new(12/15/24 02:29) cp Symptoms: have improved(12/15/24 02:29) cp Condition: Stable(12/15/24 02:29) cp Diagnosis - Diverticulitis of large intestine without perforation or abscess with bleeding cp Followup: cp - With: Erik Alvarez MD - When: 7 - 10 days - Reason: Recheck today's complaints Discharge Instructions: - Discharge Summary Sheet cp - High-Fiber Eating Plan cp - Diverticulitis cp - Gastrointestinal Bleeding cp Forms: - Medication Reconciliation Form cp - Antibiotic Education cp - Prescription Opioid Use cp - Patient Portal Instructions cp - Leadership Thank You Letter cp Prescriptions: - Augmentin 875-125 mg Oral Tablet - take 1 tablet ORAL route every 12 hours for 10 days; 20 tablet; Refills: 0, cp Product Selection Permitted - Metronidazole 500 mg Oral Tablet - take 1 tablet ORAL route every 8 hours; 30 tablet; Refills: 0, Product cp Selection Permitted - dicyclomine 20 mg Oral tablet - take 1 tablet ORAL route every 6-8 hours; 30 tablet; Refills: 0, Product cp Selection Permitted - ondansetron 8 mg Oral Tablet,disintegrating - take 1 tablet ORAL route every 12 hours; 20 tablet; Refills: 0, Product cp Selection Permitted Signatures: Dispatcher [employer] EDMS Haroldo Rajan PA-C PA-C cp Johnson, Juwairiyah, RN RN jj7 Marii Andrews cp4 Hay Harrison RN RN rg5 Khris Denis, DO DO tt7 Corrections: (The following items were deleted from the chart) 12/14 23:34 23:34 Abdomen Pelvis W Con+CT.RAD.BRZ ordered. EDMS EDMS 23:34 23:34 Chest Single View+RAD.RAD.BRZ ordered. EDMS EDMS 12/15 01:54 01:53 Normal except: K 3.3; CL 109; BUN 20. cp cp 02:07 02:00 Home cp cp 02:07 02:00 new cp cp 02:07 02:00 have improved cp cp 02:07 02:00 Stable cp cp 02:07 02:00 Nausea with vomiting, unspecified cp cp 02:07 02:00 Diarrhea, unspecified cp cp
--- NOTE | 2024-12-15 02:01 | ER ---
Nurse's Notes [facility] Name: Makayla Tejada Age: 59 yrs Sex: Female : 1965 Arrival Date: 12/14/2024 Time: 22:12 Bed 13 Private MD: Diagnosis: Diverticulitis of large intestine without perforation or abscess with bleeding Presentation: 12/14 22:27 Chief complaint: Patient states: ABDOMINAL PAIN AND DIARRHEA STARTED 4 DAYS AGO. N/V. jj7 VOMITED X1. BRIGHT RED BLOOD WITH DIARRHEA. Coronavirus screen: At this time, the client does not indicate any symptoms associated with coronavirus-19. Ebola Screen: No symptoms or risks identified at this time. Initial Sepsis Screen: Does the patient meet any 2 criteria? No. Patient's initial sepsis screen is negative. Does the patient have a suspected source of infection? No. Patient's initial sepsis screen is negative. Risk Assessment: Do you want to hurt yourself or someone else? Patient reports no desire to harm self or others. Onset of symptoms was December 10, 2024. 22:27 Method Of Arrival: Ambulatory [facility] 22:27 Acuity: MELISA 3 jj7 Triage Assessment: 22:27 General: Appears in no apparent distress. uncomfortable, Behavior is calm, cooperative, jj7 appropriate for age. Pain: Complains of pain in abdomen. GI: Reports lower abdominal pain, upper abdominal pain, diarrhea, bloody stool, nausea, vomiting. Historical: - Allergies: 22:33 No Known Allergies; jj7 - PMHx: 22:33 depressive disorder; Hypertensive disorder; Migraines; jj7 - PSHx: 22:33 Cholecystectomy; Total abdominal hysterectomy; jj7 - Immunization history:: Adult Immunizations up to date. - Infectious Disease History:: Denies. - Social history:: Smoking status: Patient denies any tobacco usage or history of. Patient uses alcohol, only on a social basis. Patient/guardian denies using street drugs, IV drugs. Screenin:40 [facility] ED Fall Risk Assessment (Adult) History of falling in the last 3 months, rg5 including since admission No falls in past 3 months (0 pts) Confusion or Disorientation No (0 pts) Intoxicated or Sedated No (0 pts) Impaired Gait No (0 pts) Mobility Assist Device Used No (0 pt) Altered Elimination No (0 pt) Score/Fall Risk Level 0 - 2 = Low Risk Oriented to surroundings, Maintained a safe environment. Abuse screen: Denies threats or abuse. Nutritional screening: No deficits noted. Tuberculosis screening: No symptoms or risk factors identified. Assessment: 22:40 General: Appears uncomfortable, Behavior is calm, cooperative, appropriate for age. rg5 Pain: Complains of pain in abdomen Pain currently is 7 out of 10 on a pain scale. Quality of pain is described as aching. Neuro: Level of Consciousness is awake, alert, obeys commands, Oriented to person, place, time, situation. Cardiovascular: Denies chest pain, Patient's skin is warm and dry. Respiratory: Airway is patent Trachea midline Respiratory effort is even, unlabored, Respiratory pattern is regular, symmetrical. GI: Bowel sounds present in left lower quadrant Abd is soft. GI: Reports lower abdominal pain, upper abdominal pain, bloody stool. : No signs and/or symptoms were reported regarding the genitourinary system. EENT: No signs and/or symptoms were reported regarding the EENT system. Derm: Skin is intact, Skin is dry, Skin is normal. Musculoskeletal: Circulation, motion, and sensation intact. Range of motion: intact in all extremities. 23:30 Reassessment: No changes from previously documented assessment. Patient and/or family rg5 updated on plan of care and expected duration. Pain level reassessed. Patient is alert, oriented x 3, equal unlabored respirations, skin warm/dry/pink. 12/15 00:15 Reassessment: Patient appears in no apparent distress at this time. No changes from cp4 previously documented assessment. Patient and/or family updated on plan of care and expected duration. Pain level reassessed. Patient is alert, oriented x 3, equal unlabored respirations, skin warm/dry/pink. Vital Signs: 12/14 22:27 BP 155 / 108; Pulse 66; Resp 20; Temp 97.6; Pulse Ox 100% ; Weight 92.08 kg; Height 5 jj7 ft. 2 in. ; Pain 09/21; 23:00 BP 169 / 112; Pulse 61; Resp 18; Pulse Ox 96% ; rg5 12/15 00:00 BP 170 / 109; Pulse 56; Resp 18; Pulse Ox 96% ; cp4 01:58 BP 171 / 72; Pulse 58; Resp 18; Pulse Ox 97% ; cp4 03:00 BP 103 / 68; Pulse 72; Resp 18; Pulse Ox 100% ; cp4 12/14 22:27 Body Mass Index 37.13 (92.08 kg, 157.48 cm) [facility] 12/14 22:27 Pain Scale: Adult [facility] ED Course: 12/14 22:14 Patient arrived in ED. gm2 22:15 Haroldo Rajan PA-C is PHCP. cp 22:15 Khris Denis DO is Attending Physician. cp 22:27 Arm band placed on right wrist. Patient placed in an exam room, on a stretcher. [facility] 22:32 Triage completed. [facility] 22:40 Patient has correct armband on for positive identification. Door closed. Noise rg5 minimized. Warm blanket given. 22:40 No provider procedures requiring assistance completed. Inserted saline lock: 20 gauge rg5 in right antecubital area, using aseptic technique. Blood collected. Flushed with 10 mL NS. Patient maintains SpO2 saturation greater than 95% on room air. 22:50 Hay Harrison, RN is Primary Nurse. rg5 12/15 00:08 CT Abd/Pelvis - IV Contrast Only In Process Unspecified. EDMS 00:22 XRAY Chest (1 view) In Process Unspecified. EDMS 02:29 Erik Alvarez MD is Referral Physician. cp 03:01 Provided Education on: Diverticulitis. cp4 03:01 intact, bleeding controlled, No redness/swelling at site. Pressure dressing applied. cp4 Administered Medications: 12/14 23:08 Drug: NS 0.9% IV 1000 ml IV at 1000 ml once; to be given as a bolus over 60 minutes rg5 Route: IV; Rate: 1000 ml; Site: right antecubital; 12/15 03:03 Follow up: IV Status: Completed infusion cp4 12/14 23:08 Drug: Ondansetron IVP 4 mg IVP once; over 2 minutes Route: IVP; Site: right antecubital;rg5 23:30 Follow up: Response: No adverse reaction rg5 23:08 Drug: morphine IVP or IV 4 mg IVP once over 4 mins Route: IVP; Infused Over: 4 mins; rg5 Site: right antecubital; 12/15 00:12 Follow up: Response: No adverse reaction; Pain is decreased rg5 00:16 Drug: metoCLOPramide IVP 10 mg IVP once; over 1 to 2 minutes Route: IVP; Site: right rg5 antecubital; :57 Follow up: Response: No adverse reaction cp4 00:17 Drug: morphine IVP or IV 4 mg IVP once over 4 mins Route: IVP; Infused Over: 4 mins; rg5 Site: right antecubital; :57 Follow up: Response: No adverse reaction cp4 01:57 Drug: Potassium PO Effervescent Tablet 50 mEq PO once; dissolve in 4 ounces of water or cp4 juice Route: PO; 02:05 Follow up: Response: No adverse reaction cp4 01:57 Drug: Hydrocodone-Acetaminophen PO (7.5 mg-325 mg) 1 tabs PO once; RASS on ADMIN: cp4 Combtv4, Very Agttd3, Agttd2, Rstlss1, AlertClm0, Drwsy-1, Lt Sdtn-2, Mod Sdtn-3, Dp Sdtn-4, UnArsble-5 Route: PO; 02:05 Follow up: Response: No adverse reaction; Pain is decreased cp4 01:57 Drug: metroNIDAZOLE PO 500 mg PO once Route: PO; cp4 02:05 Follow up: Response: No adverse reaction cp4 01:57 Drug: Piperacillin-Tazobactam IVPB 3.375 grams IVPB once over 60 mins; (mix in NS 100 cp4 mL) Route: IVPB; Infused Over: 60 mins; Site: right antecubital; 03:02 Follow up: Response: No adverse reaction; IV Status: Completed infusion cp4 Medication: 12/14 22:40 VIS not applicable for this client. rg5 Outcome: 12/15 02:00 Discharge ordered by . cp 02:29 Discharge ordered by MD. cp 03:01 Discharged to home ambulatory, cp4 03:01 Condition: stable 03:01 Discharge instructions given to patient, family, Instructed on discharge instructions, follow up and referral plans. medication usage, Demonstrated understanding of instructions, follow-up care, medications, Prescriptions given X 4, 03:02 Patient left the ED. cp4 Signatures: Dispatcher [facility] EDPA Haroldo Rajan PA-C PA-C cp Johnson, Juwairiyah, RN RN jj7 Marii Andrews cp4 Latoya Echevarria gm2 Hay Harrison, RN RN rg5
[2024-12-15 03:33] VITALS: TEMP 97.6
[2024-12-15 03:37] VITALS: BP 103/68; O2SAT 100
--- NOTE | 2024-12-15 06:13 | RAD REPORT ---
TIME OF STUDY: 12/14/2024 11:33 PM CDT REASON FOR EXAM: upper abdomen pain COMPARISON: None. FINDINGS: AP view of the chest was obtained, chest 1 view. Lungs: Normal lung volume. No mass, or consolidation. Normal pulmonary vascularity.. Pleura: No pneumothorax. There is no pleural effusion. Heart and Mediastinum: Normal cardiomediastinal silhouette and great vessels.. Bones: No acute bony abnormality.. [place] screws are noted in the bilateral humeral heads. IMPRESSION: 1. No acute cardiopulmonary process. Electronically signed by: Pratik Mckenna MD 12/15/2024 01:27 AM CDT RP Due to temporary technical issues with the PACS/[employer] reporting system, reports are being dnai d by the in-house radiologist without review as a courtesy to ensure prompt reporting the interpreting radiologist is fully responsible for the content of the report. Transcribed Date/Time: 12/15/2024 6:13 AM
== END 2024-12-15 03:02 | disposition home or self-care (01) ==
LOC: ER 22:12
DX: K57.32 Diverticulitis of large intestine without perforation or abscess without bleeding (principal)
CPT/HCPCS: 96365; 96361; 85025; 36415; 83605; 83690; 80053; 74177; 71045; 96375; 99284; Q9967; J2765; J2543; J2405; J7030